=== PATIENT | female | born 1945 | race Caucasian/White ===

== ENCOUNTER 2023-01-24 14:12 | Emergency (ER) | payer MEDICARE, SELFPAY ==
[2023-01-24 14:14] VITALS: BP 117/66; PULSE 77; RESP 22; TEMP 36.2; O2SAT 97; BMI 42.7
--- NOTE | 2023-01-24 14:24 | ED.WOUNDLAC1 ---
Documented by User: CASSIE Gallegos 01/24/23 14:28 HPI - Wound/Laceration General Chief Complaint: Wound/Laceration Stated Complaint: WOUND Time Seen by Provider: 01/24/23 14:24 Source: patient and family Mode of arrival: ambulance Limitations: language barrier and altered mental status History of Present Illness HPI narrative: 77-year-old female presents by squad for a skin tear to her left hand during a bath today. Family is here with her. They applied Neosporin. Denies swelling, temp or sensation changes Related Data Allergies Allergy/AdvReac Type Severity Reaction Status Date / Time No Known Drug Allergies Allergy Verified 01/24/23 14:29 Review of Systems ROS Status of ROS 10 or more systems reviewed and unremarkable except as noted in history and below PFSH PFS Social History Smoking status: Former smoker Exam Narrative Exam Narrative: General: A&Ox3, no distress, talking in full an complete sentences skin: warm, dry, intact, 3 cm skin tear to the left hand without complication head: normocephalic, atraumatic eyes: EOMI nose: nares patent neck: supple, trachea midline respiratory: non-labored extremities: FROM x 4, strength +5/5 neuro: A&Ox3 psych: appropriate mood and affect, cooperative Constitutional Vital Signs, click to edit/add: Last Vital Signs Temp 97.2 F L 01/24/23 14:14 Pulse 80 01/24/23 15:40 Resp 18 01/24/23 15:40 BP 126/78 01/24/23 15:40 Pulse Ox 96 01/24/23 15:40 O2 Del Method Room Air 01/24/23 14:14 Course Vital Signs Vital signs: Vital Signs Temperature 97.2 F L 01/24/23 14:14 Pulse Rate 77 01/24/23 14:14 Respiratory Rate 22 01/24/23 14:14 Blood Pressure 117/66 01/24/23 14:14 Pulse Oximetry 97 01/24/23 14:14 Oxygen Delivery Method Room Air 01/24/23 14:14 Temperature 97.2 F L 01/24/23 14:14 Pulse Rate 80 01/24/23 15:40 Respiratory Rate 18 01/24/23 15:40 Blood Pressure 126/78 01/24/23 15:40 Pulse Oximetry 96 01/24/23 15:40 Oxygen Delivery Method Room Air 01/24/23 14:14 MDM - Wound/Laceration MDM Narrative Medical decision making narrative: No sutures required and will heal by secondary intention. Bacitracin applied and discussed wound care. F/u with PCP. afebrile, not tachypneic, not tachycardic, tolerating p.o., not hypoxic, non toxic appearing and ambulating at baseline and hemodynamically stable to be d/c. answered all questions. pt in agreement with tx. educated when to return to ER. Discharge Plan Discharge Chief Complaint: Wound/Laceration Clinical Impression: Skin tear of left hand without complication Qualifiers: Encounter type: initial encounter Qualified Code(s): S61.412A - Laceration without foreign body of left hand, initial encounter Patient Disposition: Home, Self-Care Time of Disposition Decision: 14:25 Condition: Good Mode of Transportation: EMS Instructions: Laceration Without Closure (ED) Additional Instructions: do not use neosporin, use bacitracin Stand Alone Forms: Portal Instructions Referrals: Physician,Non-Staff, [Primary Care Provider] - 1 week Discharge Date/Time: 01/24/23 16:18 Documented by User: Joao Turk MD 01/24/23 18:00 HPI - Wound/Laceration General Chief Complaint: Wound/Laceration Stated Complaint: WOUND Time Seen by Provider: 01/24/23 14:24 Related Data Allergies Allergy/AdvReac Type Severity Reaction Status Date / Time No Known Drug Allergies Allergy Verified 01/24/23 14:29 PFSH PFSH Social History Smoking status: Former smoker Exam Constitutional Vital Signs, click to edit/add: Last Vital Signs Temp 97.2 F L 01/24/23 14:14 Pulse 80 01/24/23 15:40 Resp 18 01/24/23 15:40 BP 126/78 01/24/23 15:40 Pulse Ox 96 01/24/23 15:40 O2 Del Method Room Air 01/24/23 14:14 Course Vital Signs Vital signs: Vital Signs Temperature 97.2 F L 01/24/23 14:14 Pulse Rate 77 01/24/23 14:14 Respiratory Rate 22 01/24/23 14:14 Blood Pressure 117/66 01/24/23 14:14 Pulse Oximetry 97 01/24/23 14:14 Oxygen Delivery Method Room Air 01/24/23 14:14 Temperature 97.2 F L 01/24/23 14:14 Pulse Rate 80 01/24/23 15:40 Respiratory Rate 18 01/24/23 15:40 Blood Pressure 126/78 01/24/23 15:40 Pulse Oximetry 96 01/24/23 15:40 Oxygen Delivery Method Room Air 01/24/23 14:14 MDM - Wound/Laceration MDM Narrative Medical decision making narrative: No sutures required and will heal by secondary intention. Bacitracin applied and discussed wound care. F/u with PCP. afebrile, not tachypneic, not tachycardic, tolerating p.o., not hypoxic, non toxic appearing and ambulating at baseline and hemodynamically stable to be d/c. answered all questions. pt in agreement with tx. educated when to return to ER. I, Dr Turk, have reviewed the above progress note and course of action in the ER; agree with the above. I have personally seen and evaluated this patient, gone over history and physical, and discussed disposition and treatment plan with the patient. Discharge Plan Discharge Chief Complaint: Wound/Laceration Clinical Impression: Skin tear of left hand without complication Qualifiers: Encounter type: initial encounter Qualified Code(s): S61.412A - Laceration without foreign body of left hand, initial encounter Patient Disposition: Home, Self-Care Time of Disposition Decision: 14:25 Condition: Good Mode of Transportation: EMS Instructions: Laceration Without Closure (ED) Additional Instructions: do not use neosporin, use bacitracin Stand Alone Forms: Portal Instructions Referrals: Physician,Non-Staff, MD [Primary Care Provider] - 1 week Discharge Date/Time: 01/24/23 16:18
[2023-01-24] MEDS: BACITRACIN 0.9 GM PACKET 1 PACKET TOPICAL (14:36)
[2023-01-24 15:40] VITALS: BP 126/78; PULSE 80; RESP 18; O2SAT 96
== END 2023-01-24 16:18 | disposition home or self-care (01) ==
PROVIDERS: Emergency Provider Emergency Medicine
DX: S61.412A Laceration without foreign body of left hand, initial encounter (principal); Z87.891 Personal history of nicotine dependence; W45.8XXA Other foreign body or object entering through skin, initial encounter
CPT/HCPCS: 99282

== ENCOUNTER 2023-11-09 13:08 | Outpatient (OUT) | payer MEDICARE, SELFPAY ==
--- NOTE | 2023-11-09 13:09 | XR_ITS ---
The [address] [address] Patient Name: DAISY GARCIA MRN: [id number] date: 1945 Sex: F Assigned Patient Location: [facility] Current Patient Location: Accession/Order Number: [id number] Exam Date: 11/09/2023 13:15 Report Date: 11/10/2023 07:36 At the request of: LEONCIO MATHIAS Procedure: XR chest 2V EXAMINATION: XR chest 2V HISTORY: Dyspnea R06.00 COMPARISON: No relevant comparison available. TECHNIQUE: PA and lateral FINDINGS: LUNGS: No significant pulmonary parenchymal abnormalities. VASCULATURE: No increased pulmonary vasculature. PLEURA: No pneumothorax, effusion, or pleural thickening. CARDIAC: No cardiomegaly or cardiac silhouette abnormality. MEDIASTINUM: No visible mass or adenopathy. Median sternotomy wires BONES: Mild degenerative disc disease and spondylosis without visible acute abnormalities. OTHER: Negative. XR/XR chest 2V IMPRESSION: No acute cardiopulmonary process Electronically authenticated by: ANA BONDS Date: 11/10/2023 07:36
--- NOTE | 2023-11-09 14:00 | CA_ITS ---
Patient Name: DAISY GARCIA MR#: [id number] : 1945 Exam Date: 11/09/2023 Ordering Doctor: LEONCIO MATHIAS ECHOCARDIOGRAM REPORT PROCEDURE: CA ECHO DOPPLER COMPLETE INDICATIONS: Dyspnea, CABG COMPARISON: None. DESCRIPTION: COMPLETE ECHOCARDIOGRAM Real-time transthoracic echocardiography with 2D, M-mode, spectral and color flow Doppler performed. QUALITY: Technically difficult due to patients condition, study was performed with patient in wheelchair. LEFT VENTRICLE: Normal chamber size. Mild concentric left ventricular hypertrophy. Normal systolic function. LV EF: Normal left ventricular ejection fraction, (60-65%). DIASTOLIC: ATRIAL SEPTUM: LEFT ATRIUM: Normal chamber size. RIGHT ATRIUM: Normal chamber size. RIGHT VENTRICLE: Normal chamber size. Normal systolic function. TRICUSPID VALVE: Not well visualized. no regurgitation. MITRAL VALVE: Normal mobility and thickness. There is no mitral annular calcification. Trivial mitral regurgitation. AORTIC VALVE: Normal trileaflet appearance. No visible sclerosis. Normal leaflet mobility. No evidence of aortic valve stenosis. No aortic regurgitation. AORTIC ROOT: Normal diameter and appearance. PULMONIC VALVE: Not well visualized. PERICARDIUM: No evidence of pericardial effusion. IVC: Not well visualized. PLEURA: CONCLUSION: 1. Mild concentric left ventricular hypertrophy with normal systolic function. LVEF is estimated at 60 to 65%. 2. Normal right ventricular size and systolic function. 3. No apparent significant valvular dysfunction. 4. Technically limited study with due to patient's condition and poor sound transmission. Adult Echocardiography Procedure Report Left Ventricle LVEDD (3.7 - 5.6 cm): 3.89 cm LVESD (2.2 - 4.0 cm): 2.48 cm LVIVS thickness (0.6 - 1.2 cm): 1.14 cm LVPW thickness (0.5 - 1.0 cm): 1.25 cm e': 0.07 m/s E - e': 8.54 LVOT Max Gradient: 4.63 mm[Hg] LVOT Area (cm2): 1.08 m/s Peak Velocity (LVOT): 1.08 m/s Mean Velocity (LVOT): 0.69 m/s LVOT Diameter 2.42 cm Left Atrium LA Volume Index (2D A2C): 24.35 ml/m2 Left Atrium Systolic Dimension: 5.24 cm Mitral Valve MV E to A Ratio: 0.76 Mitral Valve A-Wave Peak Velocity: 0.75 m/s Mitral Valve E-Wave Peak Velocity: 0.57 m/s Right Ventricle Aorta AO Root Diam: 3.29 cm Aortic Valve AoV Area (Peak Alex): 4.08 cm2, 4.08 cm2 AoV Area (VTI): 3.66 cm2, 3.66 cm2 Peak Velocity(Antegrade Flow): 1.22 m/s Peak Gradient(Antegrade Flow): 5.91 mm[Hg] Mean Velocity(Antegrade Flow): 0.86 m/s Mean Gradient(Antegrade Flow): 3.29 mm[Hg] Velocity Time Integral: 27.98 cm Tricuspid Valve Pulmonic Valve Peak Velocity: 0.62 m/s Peak Gradient: 1.56 mm[Hg] Right Atrium Dictated by: Nitesh Penn M.D. on 11/09/2023 at 16:41 Approved by: Nitesh Penn M.D. on 11/09/2023 at 16:44
== END 2023-11-09 13:09 | disposition home or self-care (01) ==
LOC: RAD 13:08
PROVIDERS: Visit Provider Nurse Practitioner Family
DX: R06.00 Dyspnea, unspecified (principal)
CPT/HCPCS: 71046; 93306

== ENCOUNTER 2025-01-15 19:43 | Emergency (ER) | payer MEDICARE, SELFPAY ==
--- OUTSIDE RECORDS SUMMARY | 2022-07-21 06:10 | XMS_ITS | Continuity of Care Document ---
Author Organization [facility] Address [address] [place] [address] Phone Care Team Providers Care Yarn Dumper Name Role Phone Mehul Ruiz MD Unavailable Unavailable Allergies, Adverse Reactions, Alerts Substance Reaction Status Criticality sirolimus Swelling(moderate) Active No Inform ation PENICILLIN RashRash Active No Information Sulfa (Sulfonamide Antibiotics) RashRash Active No Information Medications Medication Instructions Dosage Effective Dates (start - stop) Status Comments aspirin 81 mg tablet,delayed release take 1 tablet by oral route every day 81 MG - Active Keppra 500 mg tablet take 1 tablet by oral route 2 times every day 500 MG - Active nifedipine ER 30 mg tablet,extended release take 1 tablet by oral route every 2 days 30 MG - Active trazodone 50 mg tablet take 2 tablet by oral route every bedtime after meals total 100mg daily - Active Neoral 25 mg capsule take 3 capsule by oral route 2 times every day 75 MG - Active Gralise 300 mg tablet,extended release take 1 tablet by oral route 2 times daily - Active Requip 0.25 mg tablet take 1 tablet by oral route 3 times every day - Active montelukast 10 mg tablet take 1 tablet by oral route every day in the evening 10 MG - Active Myfortic 180 mg tablet,delayed release take 1 tablet by oral route every day 1 tablet - Active losartan 50 mg tablet take 2 tablet by oral route every day - Active Levemir FlexTouch U-100 Insulin 100 unit/mL (3 mL) subcutaneous pen inject by subcutaneous route per prescriber's instructions. Insulin dosing requires individualization. - Active alendronate 70 mg tablet take 1 tablet by oral route every week in the morning, at least 30 min before first food, beverage, or medication of day 70 MG - Active atorvastatin 10 mg tablet take 1 tablet by oral route every day 10 MG - Active duloxetine 30 mg capsule,delayed release take 1 capsule by oral route 2 times every day 30 MG - Active Flovent Diskus 50 mcg/actuation powder for inhalation inhale 1 puff by inhalation route 2 times every day - Active calcium citrate 315 mg calcium-vitamin D3 6.25 mcg (250 unit) tablet take 1 tablet by oral route 2 times every day 1 tablet - Active carvedilol 25 mg tablet take 1 tablet by oral route 2 times every day with food 25 MG - Active furosemide 40 mg tablet take 1 tablet by oral route every day 40 MG - Active hydralazine 50 mg tablet take 1 tablet by oral route 2 times every day with food 50 MG - No Longer Active magnesium 400 mg (as magnesium oxide) tablet take 1 tablet by oral route every day 1 tablet - No Longer Active clopidogrel 75 mg tablet take 1 tablet by oral route every day 75 MG - No Longer Active Centrum Silver 0.4 mg-300 mcg-250 mcg tablet take 1 milligram by oral route every day 1 milligram - No Longer Active Procedures Procedure Date Eye Exam Established Patient Comprehensi ve 1 Or More Visits Refraction OFFICE/OUTPATIENT VISIT, [facility] Advance Directives Directive Yes / No Effective Date File Name No Information Encounters Encounter Description Practice Location Reason(s) For Visit Diagnoses Date Provider Providers Copied on Encounter [facility] , [address] [place], [address], [place] tel:[phone] [facility] complete eye exam (chief complaint) Type 2 diabetes mellitus without complication, with long-term current use of insulinFuchs' corneal dystrophy of both eyesPresence of pseudophakia [address] [place], [place], [id number], [place]. tel:[phone] Referring Provider: No Ref Doc No Referring Doc. OFFICE/OUTPAT IENT VISIT, [facility] , [address] [place], [address], [place] tel:[phone] [facility] 1 year dilated exam (chief complaint) Presence of pseudophakiaFuc hs' corneal dystrophy of both eyesPresbyopia of both eyesDiabetes mellitus without complication [address], [place], [id number], [place]. tel:[phone] Referring Provider: No Ref Doc No Referring Doc. [facility] , [address] [place], [address], [place] tel:[phone] [place] No Information [address] [employer]. [address], [place], [id number], [place]. tel:[phone] Family History Family Member Type Diagnosis Age At Onset Problem No family history of Hyperte nsion Problem No family history of Retinal disease Problem No family history of Catarac ts Problem No family history of Corneal disease Problem No family history of Macular degeneration Problem No family history of Glaucom a Payers Payer name Insurance type Covered constitution party ID Authoriza tilenore(s) [employer] Medicare [id number] Social History Type Description Quantity Date Captured Comments Alcohol Use Details Unknown Caffeine Use Details Unknown Tobacco Use Status Current non-smoker Smoking Status Never smoker Non-Smoking Tobacco Use Details : No Details Available : No Details Available Sex Female Chief Complaint And Reason For Visit From encounter dated '07/21/2022 10:10'. complete eye exam (chief complaint). Description: The 76 year old female presents for evaluation ofcomplete eye exam in the right eye and left eye. Pt states that VA is stable OU. No burning, itching, redness, or tearing. No floaters, but pt sees occasional flashes of light. No problems with glare. No drops usedBP well managed with meds IDDM II BS: 173, 07/20/22A1c: 7.9%, 06/20/22 Reason For Referral Reason For Referral No Information History Of Present Illness Encounter Date Complaint History Of Prese nt Illness complete eye exam The 76 year ol d female presents for evaluation of complete eye exam in the right eye and left eye. Pt states that VA is stable OU. No burning, itching, redness, or tearing. No floaters, but pt sees occasional flashes of light. No problems with glare. No drops usedBP well managed with meds IDDM II BS: 173, 07/20/22A1c: 7.9%, 06/20/22 1 year dilated exam The 75 year old female presents 1 year dilated exam in the right and left eyes. DVA with out glasses is good. Pt doesn't dive at all.NVA with her OTC readers is good. Pt using +2.00.No pain or irration No flashes or floatersIDDM Type 2 A1C 7.4 BS was 155HTN stable with meds Functional Status Date Functional Assessmen t No Information Instructions Date Instruction Additional Infor kierra Impression/Plan Related to Type 2 diabetes mellitus without complication, with long-term current use of insulin Impression/Plan Related to Fuchs ' corneal dystrophy of both eyes Impression/Plan Related to Prese nce of pseudophakia Impression/Plan Related to Presb yopia of both eyes Impression/Plan Related to Diabe kamille mellitus without complication Impression/Plan Related to Prese nce of pseudophakia Impression/Plan Related to Fuchs ' corneal dystrophy of both eyes Assessments Type Assessment Date assessment Type 2 diabetes jacinta itus without complication, with long-term current use of insulin assessment Fuchs' corneal dystrophy of both eyes assessment Presence of pseudophakia 2022 impression Type 2 diabetes jacinta itus without complication, with long-term current use of insulin: E11.9 impression Fuchs' corneal dystrophy of both eyes: H18.513 impression Presence of pseudophakia: Z96.1 Patient Care Teams Name Effective Dates (start - stop) Status Members No Information
--- OUTSIDE RECORDS SUMMARY | 2024-09-05 14:39 | XMS_ITS ---
Author Name Auto Generated Organization [facility] Care Team Providers Care Spring Crater Name Role Phone JACKIE MISHRA Attending Unavailable LUKE DIXON Attending Unavailable PROBLEMS No Problem Records Found PROCEDURES No Procedure Records Found RESULTS No Result Records Found ALLERGIES No Allergies Records Found ENCOUNTERS ADMIT/DISCHARGE ACCOUNT NUMBER ADMITTING ENCOUNTER CLASS LOCATION SOURCE 09/05/2024/ 5 [id number] Ambulatory Building:R NEURO [facility] 02/27/2024/ 4 [id number] Ambulatory Building:[facility] NEURO [facility] PAYERS ENCOUNTER GUARANTOR PAYER SUBSCRIBER SOURCE 09/05/2024 DAISY Ann [place]HADOB: [place] [address]Ijt: () Primary Insurance:AETNA MEDICARE ADVANTAGEPolicy Number: [id number] Date:2023-04-18 DAISY Ann RADHADOB: [id number] [place] [address] [facility] 02/27/2024 DAISY Ann RADHADOB: [id number] [facility] [place] [address]Wkr: (HP) Primary Insurance:AET[employer] MEDICARE ADVANTAGEPolicy Number: [id number] Date:2023-04-18 DAISY Marissa GARCIADOB: [id number] [facility] [place] [address] [facility]
[2025-01-15] VITALS (26 sets, daily range): BP systolic 115–138; BP diastolic 51–89; PULSE 85–126; TEMP 37; O2SAT 91–96
--- OUTSIDE RECORDS SUMMARY | 2025-01-15 19:48 | XMS_ITS | Patient Health Record ---
Author Organization [facility] Address [address] [place] [address] Care Team Providers Care Distribution Estimator Name Role Phone Amparo Samano Primary Care Provider Unavailab JOHAN Lynch Unavailable [phone] Allergies No Known Allergies Reason For Referral No Information Medications Medication SIG (Take, Route, Frequency, Duration) Notes Start Date End Date Status Hyoscyamine Sulfate 0.125 MG 1 tablet on the tongue and allow to dissolve as needed Orally every 8 hrs; Duration: 30 days 01/11/2025 Active Cetirizine HCl 10 MG 1 tablet, as needed Orally Once a day; Duration: 30 day(s) Active Citalopram Hydrobromide 10 MG 1 tablet Orally Once a day; Duration: 30 day(s) Active Mucus Relief 400 MG 1 tablet as needed O rally every 12 hrs Active Memantine HCl 5 MG 2 tablets Orally twi ce a day Active Bacitracin-Polymyxin B - 1 application a s needed right eye every 4 hours; Duration: 10 day(s) 01/31/2024 Active Donepezil HCl 5 MG 1 tablet at bedtime Orally Once a day Active Lisinopril 10 MG 1 tablet Orally Once a day; Duration: 30 day(s) Active Rivaroxaban 20 MG 1 tablet with food O rally Once a day; Duration: 30 day(s) Active Social History Tobacco Use: Social History Observation Description Date Details (start date - stop date) Former Smoker NA - NA Tobacco Use/Smoking Question Answer Notes Are you a former smoker How long has it been since you last smoked? >20 years Tobacco use other than smoking: Question Answer Notes Are you an other tobacco user? No Problems Problem Type SNOMED Code ICD Code Onset Dates Problem Status W/U Status Risk Notes Problem Information temporarily unavailable Dyspnea, unspecified (R06.00) Active confirmed Problem Information temporarily unavailable Dysphagia, unspecified (R13.10) Active confirmed Problem Information temporarily unavailable History of falling (Z91.81) Active confirmed Problem Information temporarily unavailable HTN (hypertension) (I10) Active confirmed Problem Information temporarily unavailable Essential hypertension (I10) Active confirmed Problem Information temporarily unavailable Anxiety and depression (F41.8) Active confirmed Problem Information temporarily unavailable Alzheimer disease (G30.9) Active confirmed Problem Information temporarily unavailable Alzheimer's dementia without behavioral disturbance, unspecified timing of dementia onset (G30.9) Active confirmed Problem Information temporarily unavailable Conjunctivitis (H10.9) Active confirmed Problem Information temporarily unavailable History of DVT (deep vein thrombosis) (Z86.718) Active confirmed Problem Information temporarily unavailable Difficulty swallowing (R13.10) Active confirmed Problem Information temporarily unavailable History of tobacco abuse (Z87.891) Active confirmed Problem Information temporarily unavailable Increased oropharyngeal secretions (K11.7) Active confirmed Problem Information temporarily unavailable History of cervical cancer (Z85.41) Active confirmed Problem Information temporarily unavailable 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) Active confirmed Problem Information temporarily unavailable Personal history of COVID-19 (Z86.16) Active confirmed Problem Information temporarily unavailable Depression, unspecified depression type (F32.A) Active confirmed Problem Information temporarily unavailable Chronic kidney disease, stage 3 (N18.30) Active confirmed Vital Signs Heart Rate 63 /min 01/11/2025 Temperature 97.7 degrees Fahrenheit 01/11/2025 Respiratory Rate 20 /min 01/11/2025 Oximetry 93 % 01/11/2025 Blood pressure diastolic 66 mm Hg 01/11/2025 Height 5 ft 1 in in 01/11/2025 Blood pressure systolic 112 mm Hg 01/11/2025 Encounters Encounter Location Date Provider Diagnosis [address] [phone] 01/31/2024 JOHAN ANDERSON Alzheimer's dementia without behavioral disturbance, unspecified timing of dementia onset G30.9 ; Dysphagia, unspecified R13.10 ; Conjunctivitis H10.9 ; Encounter for palliative care Z51.5 and Pressure ulcer of buttock L89.[address] [address] 03/21/2024 JOHAN ANDERSON Alzheimer's dementia without behavioral disturbance, unspecified timing of dementia onset G30.9 ; Dysphagia, unspecified R13.10 ; Pressure ulcer of buttock L89.309 and Encounter for palliative care Z51.5 [facility] [address] [place], [place] [phone] 05/21/2024 JOHAN ANDERSON Alzheimer's dementia without behavioral disturbance, unspecified timing of dementia onset G30.9 ; Dysphagia, unspecified R13.10 ; Pressure ulcer of buttock L89.309 and Encounter for palliative care Z51.5 [facility] [address] [place], [place] [phone] 07/18/2024 JOHAN ANDERSON Alzheimer's dementia without behavioral disturbance, unspecified timing of dementia onset G30.9 ; Dysphagia, unspecified R13.10 ; Pressure ulcer of buttock L89.309 and Encounter for palliative care Z51.5 [facility] [address] [place], [place] [phone] 09/17/2024 JOHAN ANDERSON Alzheimer's dementia without behavioral disturbance, unspecified timing of dementia onset G30.9 ; Dysphagia, unspecified R13.10 and Encounter for palliative care Z51.5 [facility] [address] [place] [phone] 11/19/2024 JOHAN ANDERSON Alzheimer's dementia without behavioral disturbance, unspecified timing of dementia onset G30.9 ; Dysphagia, unspecified R13.10 and Encounter for palliative care Z51.5 [facility] [address] [place] [phone] 01/11/2025 JOHAN ANDERSON Alzheimer's dementia without behavioral disturbance, unspecified timing of dementia onset G30.9 ; Dysphagia, unspecified R13.10 ; Excessive cerumen in both ear canals H61.23 and Encounter for palliative care Z51.5 [facility] [address] [place] [phone] 07/02/2024 JOHAN JUSTIN [facility] [address] [place] [phone] 09/25/2024 JOHAN JUSTIN [facility] [address] [place] [phone] 09/25/2024 JOHAN JUSTIN [facility] [address] [place] [phone] 11/20/2024 JOHAN JUSTIN [facility] [address] [place] [phone] 12/11/2024 JOHAN ANDERSON Dysphagia, unspecifi ed R13.10 [facility] [address] [place] [address] 01/09/2025 JOHAN ANDERSON [facility] [address] [place] [address] 01/10/2025 JOHAN ANDERSON Assessments Encounter Date Diagnosis (ICD Code) Assessment Notes Treatment Notes Treatment Clinical Notes Section Notes 01/31/2024 Alzheimer's dementia without behavioral disturbance, unspecified timing of dementia onset (ICD-10 - G30.9) Patient diagnosed with Alzheimer's approximately 5 years ago. She does continue to follow with [facility]. Neurologist did tell he could stop giving medication for Alzheimer's but he states it doesn't cost much and wishes to continue. Patient is dependent on family for all ADLs. Needs to be fed. She is nonverbal. Does make eye contact for short time. Smiles occasionally. Non-ambulatory. Uses ceiling lift for transfers. Incontinent of bowel/bladder. 3 areas to buttocks, now closed. History of dysphagia; occasional coughing with meals, mostly with fluids. Occasional holding of food in mouth, family gives reminders to chew and swallow. Next Neurology appointment February 26. Continue current regimen 03/21/2024 Alzheimer's dementia without behavioral disturbance, unspecified timing of dementia onset (ICD-10 - G30.9) Patient diagnosed with Alzheimer's approximately 5 years ago. She does continue to follow with [facility]. Neurologist did tell he could stop giving medication for Alzheimer's but he states it doesn't cost much and wishes to continue. Patient is dependent on family for all ADLs. Needs to be fed. She is nonverbal. Does make eye contact for short time. Smiles occasionally. Non-ambulatory. Requiring [place] lift for transfers (has ceiling lift in home). Incontinent of bowel/bladder. Several small open areas to buttocks. History of dysphagia; occasional coughing with meals, mostly with fluids. Occasional holding of food in mouth, family gives reminders to chew and swallow. Continue current regimen 05/21/2024 Alzheimer's dementia without behavioral disturbance, unspecified timing of dementia onset (ICD-10 - G30.9) Patient diagnosed with Alzheimer's approximately 5 years ago. She does continue to follow with [facility]. Neurologist did tell he could stop giving medication for Alzheimer's but he states it doesn't cost much and wishes to continue. Patient is dependent on family for all ADLs. Needs to be fed. She is nonverbal. Does make eye contact for short time. Smiles occasionally. Non-ambulatory. Requiring [place] lift for transfers (has ceiling lift in home). Incontinent of bladder (100%) and occasionally bowels (25%). No further open areas. History of dysphagia; occasional coughing with meals, mostly with fluids. Occasional holding of food in mouth, family gives reminders to chew and swallow. Using thickener for fluids Continue current regimen 07/18/2024 Dysphagia, unspecified (ICD-10 - R13.10) Patient has history of dysphagia. Was coughing mostly after liquids; now coughing with food and fluid. Family has been using thickener and spoon feeding liquids. Congestion to throat/upper chest. Lungs clear. Continue with Scopolamine patches Continue to thicken liquids; discussed risk for aspiration. Discussed using more thickener to achieve honey-consistency Lung sounds clear this visit. O2 saturation 96% on room air. Patient to sit up when eating/drinking. 07/18/2024 Alzheimer's dementia without behavioral disturbance, unspecified timing of dementia onset (ICD-10 - G30.9) Patient diagnosed with Alzheimer's approximately 6 years ago. She does continue to follow with [facility]. Recently (06/28/24) increased Namenda from 5mg twice a day to 10mg twice a day. reports that the patient has been more alert. Patient is alert, nonverbal. Will make eye contact for a few seconds and smiles occasionally. Patient is dependent on family for 6/6 ADLs. Appetite good. Eats 2 meals a day; approximately 3-4 cups of food/day. Does need to be fed. Taking 1-2 hours for meals. Liquids thickened. Patient does cough with eating/drinking. Has history of dysphagia. Encouraged family to use more thickener to try and decrease risk for aspiration. Patient is non-ambulatory. 4 months ago was able to assist with standing and is no longer standing. Family uses ceiling lift for transfers. She is able to sit upright in her wheelchair. Patient is incontinent of bowel and bladder. The family does have a toileting regimen and patient will void and have bowel movement when sitting on BSC. Wears briefs. Several small (< 0.5cm) open areas to bilateral buttocks. Currently using Desitin cream. Discussed restarting the patches since the areas have re-opened. Making sure to turn/reposition when in bed. Frequent incontinence care. agreeable to plan. No recent infections. No recent weight checked. MAC 37cm (left arm). MAC was 38cm on 11/24/2023 Continue current regimen 09/17/2024 Dysphagia, unspecified (ICD-10 - R13.10) Patient has history of dysphagia. Was coughing mostly after liquids; now coughing with food and fluid. Family has been using thickener and spoon feeding liquids. Congestion to throat/upper chest. Lungs clear. Continue with Scopolamine patches Continue to thicken liquids; discussed risk for aspiration. Discussed using more thickener to achieve honey-consistency Education provided on dysphagia, aspiration, and the risk for pneumonia. Lung sounds clear this visit. O2 saturation 96% on room air. Patient to sit up when eating/drinking. 09/17/2024 Alzheimer's dementia without behavioral disturbance, unspecified timing of dementia onset (ICD-10 - G30.9) Patient diagnosed with Alzheimer's approximately 7 years ago. She does continue to follow with [facility]. Had appointment on 09/05/24; records requested. Patient is alert, nonverbal. Will make eye contact for a few seconds and smiles occasionally. Patient is dependent on family for 6/6 ADLs. Appetite good. Eats 2 meals a day; approximately 2-3 cups of food/day. Does need to be fed. Taking 1-2 hours for meals. Needs cues for chewing/swallowin g. Liquids thickened (still liquid consistency). Patient does cough with eating/drinking. Has history of dysphagia. Encouraged family to use more thickener to try and decrease risk for aspiration. Patient is non-ambulatory. In March, was able to assist with standing and is no longer standing. Family uses ceiling lift for transfers. She is able to sit upright in her wheelchair. Patient is incontinent of bowel and bladder. The family does have a toileting regimen and patient will void and have bowel movement when sitting on BSC. Wears briefs. Small (< 0.5cm) open area to crease of buttocks. Currently using Desitin cream. Making sure to turn/reposition when in bed. Frequent incontinence care. agreeable to plan. No recent infections. No recent hospitalizations No recent weight checked. MAC was 38cm on 11/24/2023, 37cm in July, current MAC 34cm (left arm) Continue current regimen 11/19/2024 Dysphagia, unspecified (ICD-10 - R13.10) Patient has history of dysphagia. Was coughing mostly after liquids; now coughing with food and fluid. Family has been using thickener and spoon feeding liquids. Congestion to throat/upper chest. Lungs clear. Continue with Scopolamine patches Continue to thicken liquids; discussed risk for aspiration. Discussed using more thickener to achieve honey-consistency Education provided on dysphagia, aspiration, and the risk for pneumonia. Lung sounds clear this visit. O2 saturation 100% on room air. Patient to sit up when eating/drinking and stay upright for 30 minutes after eating. 11/19/2024 Alzheimer's dementia without behavioral disturbance, unspecified timing of dementia onset (ICD-10 - G30.9) Patient diagnosed with Alzheimer's approximately 7 years ago. She does continue to follow with [facility]. Last appointment on 09/05/24 Patient is alert, nonverbal. Will make eye contact for a few seconds and smiles occasionally. Patient is dependent on family for 6/6 ADLs. Appetite good. Eats 2 meals a day; approximately 2-3 cups of food/day. Does need to be fed. Taking 1-2 hours for meals. Needs cues for chewing/swallowin g. Sometimes food/liquid just pours from her mouth. Liquids thickened (still liquid consistency). Patient does cough with eating/drinking. Has history of dysphagia. -Encouraged family to use more thickener (honey consistency) -Patient to sit upright during meals and for at least 30 minutes after eating -Soft food, small bites -Family declines speech therapy referral Sleeping more throughout the day; awake more at night -Suggested trying Melatonin at bedtime Patient is non-ambulatory. In March, was able to assist with standing and is no longer standing. Family uses ceiling lift for transfers. 2 months ago, the patient was able to sit upright in her wheelchair. Now leaning to the right and needs propped. Patient is incontinent of bowel and bladder. The family does have a toileting regimen and patient will void and have bowel movement when sitting on BSC. Wears briefs. Several small (< 0.5cm) open areas to bilateral buttocks. Currently using Desitin cream. does have hydrocolloid dressings but states he has trouble getting them to stick. -Make sure area is clean and dry before applying patches -Making sure to turn/reposition when in bed. -Frequent incontinence care. - agreeable to plan. No recent infections. No recent hospitalizations No recent weight checked. MAC was 38cm on 11/24/2023, 37cm in July, current MAC 34cm (left arm); no change from last visit. 12/11/2024 Dysphagia, unspecified (ICD-10 - R13.10) 01/11/2025 Dysphagia, unspecified (ICD-10 - R13.10) Patient has history of dysphagia. Coughing with food and fluid. Family has been using thickener and spoon feeding liquids. Congestion to throat/upper chest. Lungs clear. Patient having breakdown behind ears. Will stop Scopolamine patches. Discussed other options with the patient's . Will start SL Levsin Continue to thicken liquids; discussed risk for aspiration. Discussed using more thickener to achieve honey-consistency Education provided on dysphagia, aspiration, and the risk for pneumonia. Lung sounds clear this visit. O2 saturation 93% on room air. Patient to sit up when eating/drinking and stay upright for 30 minutes after eating. 01/11/2025 Alzheimer's dementia without behavioral disturbance, unspecified timing of dementia onset (ICD-10 - G30.9) Patient diagnosed with Alzheimer's approximately 7 years ago. She does continue to follow with [facility]. Last appointment on 09/05/24 Patient is alert, nonverbal. Will make eye contact for a few seconds and smiles occasionally ( reports she is smiling less). Patient is dependent on family for 6/6 ADLs. Appetite decreased. Eats 2 meals a day; approximately 2-3 cups of food/day. Does need to be fed. Taking approximately 2 hours for meals. Needs cues for chewing/swallowin g. Sometimes food/liquid just pours from her mouth. Liquids thickened (still liquid consistency). Patient does cough with eating/drinking. Has history of dysphagia. -Again encouraged family to use more thickener (honey consistency) -Patient to sit upright during meals and for at least 30 minutes after eating -Soft food, small bites -Family declines speech therapy referral Sleeping more throughout the day; awake more at night -Suggested trying Melatonin at bedtime Patient is non-ambulatory. In March, was able to assist with standing and is no longer standing. Family uses ceiling lift for transfers. In September, the patient was able to sit upright in her wheelchair. Now leaning to the right and needs propped. Patient is incontinent of bladder and sometimes bowels. The family does have a toileting regimen and patient will void and have bowel movement when sitting on BSC. Wears briefs. Several small (< 0.5cm) open areas to bilateral buttocks. Currently using hydrocolloid dressings but sometimes has trouble getting them to stick. -Make sure area is clean and dry before applying patches -Making sure to turn/reposition when in bed. -Frequent incontinence care. - agreeable to plan. No recent infections. No recent hospitalizations No recent weight checked. MAC was 38cm on 11/24/2023, 37cm in July, current MAC 34cm (left arm); no change from last visit. 01/11/2025 Excessive cerumen in both ear canals (ICD-10 - H61.23) voiced that there was increased wax build up to patient's left ear. Examined both ears with otoscope. Unable to visualize TMs. Used lighted curette to remove moderate amount of soft cerumen from both ear canals. The patient tolerated well. Once cerumen removed, able to visualize TMs. No signs of infection noted. 11/19/2024 Encounter for palliative care (ICD-10 - Z51.5) Patient is alert but confused. Nonverbal. Patient's makes medical decisions for her. Discussed disease progression, quality of life, symptom management, and goals of care with the patient's and daughter. Patient lives at home with her , daughter, and son who all act as caregivers. She appears well cared for at home. The family plans to keep her in the home and kept comfortable. GOC: respiratory management, comfort measures. POA and DNRCC documents in the chart. No changes to ACP this visit. Emergency Contacts: , Junior Daugherty is POA, . Patient's son, Rob Daughetry, . PPS 30%. Prognosis: < 6 months. FAST score 7e. Decline noted with increased coughing with meals, needing cues with meals, open areas to buttocks, FAST score 7d to 7e, needing propped while sitting. Patient is Hospice appropriate at this time. Hospice discussion held with the patient's and daughter. He states he does not feel that she is ready. He is currently not in a Hospice mindset. Will continue to hold discussions about Hospice and the benefits involved. Next visit scheduled for two months, per family request. Will make touch point calls in between visits to monitor patient's condition. The family agrees to call if anything changes. Total time spent 85 minutes reviewing patient's medical history, medications, allergies, face to face visit, physical exam, and documentation of visit. 09/17/2024 Encounter for palliative care (ICD-10 - Z51.5) Patient is alert but confused. Nonverbal. Patient's makes medical decisions for her. Discussed disease progression, quality of life, symptom management, and goals of care with the patient's and daughter. Patient lives at home with her , daughter, and son who all act as caregivers. She appears well cared for at home. The family plans to keep her in the home and kept comfortable. GOC: respiratory management, comfort measures. POA and DNRCC documents in the chart. No changes to ACP this visit. Emergency Contacts: , Junior Daugherty is POA, . Patient's son, Rob Daugherty, . PPS 30%. Prognosis: < 6 months. FAST score 7d. Decline noted with increased coughing with meals, needing cues with meals, open area to buttocks. Patient is Hospice appropriate at this time. Hospice discussion held with the patient's and daughter. He states he does not feel that she is ready. He is currently not in a Hospice mindset. Will continue to hold discussions about Hospice and the benefits involved. Next visit scheduled for two months, per family request. Will make touch point calls in between visits to monitor patient's condition. Total time spent 85 minutes reviewing patient's medical history, medications, allergies, face to face visit, physical exam, and documentation of visit. 07/18/2024 Pressure ulcer of buttock (ICD-10 - L89.309) At the last visit, the previously open areas to buttocks had healed. Now has several open areas to bilateral buttocks. Patient is chair bound and incontinent of bowel/bladder. Discussed repositioning often to decrease pressure Continue with alternating pressure air mattress Frequent incontinent care Restart with hydrocolloid patches 05/21/2024 Dysphagia, unspecified (ICD-10 - R13.10) Patient has history of dysphagia. Coughing mostly after liquids. Family has been using thickener and spoon feeding liquids. Congestion to throat/upper chest. Lungs clear. Continue with Scopolamine patches Continue to thicken liquids Lung sounds clear this visit. O2 saturation 95% on room air. Patient to sit up when given fluids. 03/21/2024 Dysphagia, unspecified (ICD-10 - R13.10) Patient has history of dysphagia. Coughing mostly after liquids. Family has been using thickener and spoon feeding liquids. Congestion to throat/upper chest. Lungs clear. Afebrile. Continue with Scopolamine patches Discussed making thicker consistency to see if patient could tolerate better. Lung sounds clear this visit. O2 saturation 95% on room air. Patient to sit up when given fluids. 01/31/2024 Dysphagia, unspecified (ICD-10 - R13.10) Patient has history of dysphagia. Coughing mostly after liquids. Family has been using thickener and spoon feeding liquids. Observed patient coughing this visit. Drink does not appear very thickened. Discussed making thicker consistency to see if patient could tolerate better. Lung sounds clear this visit. O2 saturation 95% on room air. Patient to sit up when given fluids. 01/31/2024 Conjunctivitis (ICD-10 - H10.9) Right eye with redness and drainage X 3 days. Start patient on Bacitracin-Polymy nikko B ointment Order called into [place], [place] Warm compresses to help with crusting. Family to call if eye worsens or not improved after treatment 03/21/2024 Pressure ulcer of buttock (ICD-10 - L89.309) Patient with several small open areas to bilateral buttocks, all less than 0.5cm. states he had stopped using the patches because they were closed, but recently started using them again and states they have gotten smaller. Currently has Desitin cream applied. states he will apply patch after she is cleaned up for the day. Reviewed directions for patches and to leave them on (unless soiled) for at least 3 days or come off on own. Patient is chair bound and incontinent of bowel/bladder. Discussed repositioning often to decrease pressure; family did purchase new air mattress that alternates pressure/reductio n Frequent incontinent care Continue with hydrocolloid patches to open areas 05/21/2024 Pressure ulcer of buttock (ICD-10 - L89.309) The open areas to patient's buttocks are now closed. continues to use Desitin cream for protection. Patient is chair bound and incontinent of bowel/bladder. Discussed repositioning often to decrease pressure Continue with alternating pressure air mattress Frequent incontinent care Continue with hydrocolloid patches if opens back up 07/18/2024 Encounter for palliative care (ICD-10 - Z51.5) Patient is alert but confused. Nonverbal. Patient's makes medical decisions for her. Discussed disease progression, quality of life, symptom management, and goals of care with the patient's , son, and daughter. Patient lives at home with her , daughter, and son who all act as caregivers. She appears well cared for at home. The family plans to keep her in the home and kept comfortable. GOC: respiratory management, comfort measures. POA and DNRCC documents in the chart. No changes to ACP this visit. Emergency Contacts: , Junior Daugherty is POA, . Patient's son, Rob Daugherty, . PPS 30%. Prognosis: > 6 months. FAST score 7d. Decline noted with increased coughing with meals, decreased ability to stand, reoccurring open areas to buttocks. Patient is not Hospice appropriate at this time. Hospice discussion held with the patient's and children. He states he does not feel that she is ready. He is currently not in a Hospice mindset. Will continue to hold discussions about Hospice and the benefits involved. Next visit scheduled for two months, per family request. Will make touch point calls in between visits to monitor patient's condition. Total time spent 85 minutes reviewing patient's medical history, medications, allergies, face to face visit, physical exam, and documentation of visit. 01/11/2025 Encounter for palliative care (ICD-10 - Z51.5) Patient is alert but confused. Nonverbal. Patient's makes medical decisions for her. Discussed disease progression, quality of life, symptom management, and goals of care with the patient's and daughter. Patient lives at home with her , daughter, and son who all act as caregivers. She appears well cared for at home. The family plans to keep her in the home and kept comfortable. GOC: respiratory management, comfort measures. POA and DNRCC documents in the chart. No changes to ACP this visit. Emergency Contacts: Junior Daugherty is POA, . Patient's son, Rob Daugherty, . PPS 30%. Prognosis: < 6 months. FAST score 7e. Decline noted with increased coughing with meals, length of time needed for meals, continued open areas to buttocks, FAST score 7d to 7e, needing propped while sitting. Patient is Hospice appropriate at this time. Hospice discussion held with the patient's and daughter. He states he does not feel that she is ready. He is currently not in a Hospice mindset. Will continue to hold discussions about Hospice and the benefits involved. Next visit scheduled for two months, per family request. Will make touch point calls in between visits to monitor patient's condition. The family agrees to call if anything changes. Total time spent 95 minutes reviewing patient's medical history, medications, allergies, face to face visit, physical exam, and documentation of visit. 05/21/2024 Encounter for palliative care (ICD-10 - Z51.5) Patient is alert but confused. Nonverbal. Patient's makes medical decisions for her. Discussed disease progression, quality of life, and goals of care with the patient's and daughter. Patient lives at home with her , daughter, and son who all act as caregivers. She appears well cared for at home. The family plans to keep her in the home and kept comfortable. POA and DNRCC documents in the chart. Emergency Contacts: Junior Daugherty is POA, . Patient's son, Rob Daugherty, . PPS 30%. Prognosis: > 6 months (possibly less). FAST score 7d. Patient is most likely hospice appropriate but patient's does not want hospice services at this time. He says that if she starts to decline more, he will consider it. requests current palliative visits every 2 months due to the cost. He agrees to phone calls to monitor the patient's condition. Decline noted with increased sleeping, coughing with meals/fluids. Next visit scheduled for two months, per family request. Total time spent 85 minutes reviewing patient's medical history, medications, allergies, face to face visit, physical exam, and documentation of visit. 03/21/2024 Encounter for palliative care (ICD-10 - Z51.5) Patient is alert but confused. Nonverbal. , Junior Daugherty is POA and emergency contact, . Patient lives at home with her , daughter, and son who all act as caregivers. Patient's son, Rob Daugherty is second emergency contact, . Discussed quality of life and plan of care with family. Patient appears well cared for at home. They plan to keep her in the home and kept comfortable. PPS 30%. FAST score 7d. Patient is most likely hospice appropriate but patient's does not want hospice services at this time. [facility] is currently providing PT for the patient and also discussed Hospice with the . He states he will discuss it further with his family and if he has any questions, he would call. States that he would like current palliative visits every 2 months due to the cost. Decline noted with inability to stand. Next visit scheduled for two months, per family request. Total time spent 85 minutes reviewing patient's medical history, medications, allergies, face to face visit, physical exam, and documentation of visit. 01/31/2024 Encounter for palliative care (ICD-10 - Z51.5) Patient is alert but confused. Nonverbal. , Junior Daugherty is POA and emergency contact, . Patient lives at home with her , daughter, and son who all act as caregivers. Patient's son, Rob Daugherty is second emergency contact, . Discussed quality of life and plan of care with family. Patient appears well cared for at home. They plan to keep her in the home and kept comfortable. PPS 30%. FAST score 7c. Patient is potentially hospice appropriate but patient's does not want hospice services at this time and does not believe that patient is at the end of her life. Educated family on disease progression and they state understanding. Next visit scheduled for one month, per family request. Total time spent 85 minutes reviewing patient's medical history, medications, allergies, face to face visit, physical exam, and documentation of visit. 01/31/2024 Pressure ulcer of buttock (ICD-10 - L89.309) Patient had 2 open areas to left buttock and 1 open area to right buttock. Started hydrocolloid dressing at last visit. Areas are now closed. Continues redness. Patient is chair bound and incontinent of bowel/bladder. Discussed repositioning often to decrease pressure; family did purchase new air mattress that alternates pressure/reductio n Frequent incontinent care Continue with Desitin to red areas If areas re-open, start using patches again 01/31/2024 Other 03/21/2024 Other 01/11/2025 Other Plan Of Treatment Next Appt Details Provider Name:JOHAN ANDERSON, 12:00:00 PM, [address] [place], [address], Insurance Providers Payer Name Payer Address Payer Phone Subscriber Number Group Number Insured Name Patient Relationship to Insured Coverage Start Date Coverage End Date [employer]vantage PPO [address] [place] [address] [id number] Mare Daugherty Self - patient is the insured Medical (General) History Medical History History ICD Code Alzheimer's dementia without behavioral disturbance, unspecified timing of dementia onset G30.9 Dysphagia, unspecified R13.10 Dyspnea, unspecified R06.00 Chronic kidney disease, stage 3 N18.30 Essential hypertension I10 Depression, unspecified depression type F32.A Anxiety and depression F41.8 History of tobacco abuse Z87.891 History of cervical cancer Z85.41 History of DVT (deep vein thrombosis) Z8 6.718 Personal history of COVID-19 Z86.16 History of falling Z91.81 Surgical History Surgery Date(Month/Year) Cervical Cancer/hysterectomy 2004 Thyroidectomy Neck surgery 2016 Hospitalization History Reason Date(Month/Year) Covid (@ [facility]) 10/2021
--- OUTSIDE RECORDS SUMMARY | 2025-01-15 19:48 | XMS_ITS | Clinical Summary ---
Author Organization [facility] Address [address], [address] [place] [address] Care Team Providers Care Cistern Room Operator Name Role Phone Jhonatan Panchal DO Primary Care Provider [phone] Allergies No known active allergies Medications nabumetone (RELAFEN) 500 MG tablet Take 500 mg by mouth 2 times daily 0 03/24/2018 Active oxybutynin (DITROPAN-XL) 10 MG extended release tablet Take 10 mg by mouth daily 5 05/27/2018 Active carvedilol (COREG) 6.25 MG tablet Take 1 tablet by mouth 2 times daily (with meals) 60 tablet 3 06/28/2018 Active lisinopril (PRINIVIL;ZESTRI L) 5 MG tablet Take 1 tablet by mouth daily 30 tablet 3 07/14/2018 Active famotidine (PEPCID) 20 MG tablet Take 1 tablet by mouth daily 60 tablet 3 07/14/2018 Active Active Problems Problem Noted Date Diagnosed Date Morbid obesity due to excess calories 06/30/2018 High risk medication use 06/30/2018 Gastroesophageal reflux disease without esophagi tis 06/30/2018 High blood sugar 06/30/2018 Hypertension 06/29/2018 Cancer 06/29/2018 Overview (06/29/2018): cervical Hx of hysterectomy 06/29/2018 Chronic back pain 06/29/2018 Thyroid disease 06/29/2018 Abnormality of gait and mobi lity due to NTSCI Quadriparesis secondary to Cervical Myelopathy S/P Posterior Cervical Decompression Laminoplasty C3-4-5-6. [facility] admit 06/29/18. 06/29/2018 Overview (06/29/2018): This is a 72 year ld female who presented with complaints of leg and arm weakness and gait abnormality. She is followed on a regular basis by Dr. Craig Panchal and work up revealed severe cervical myelopathy. She indicated for the last 2 months because of the leg weakness she has been using a wheelchair to get around. In addition to the leg weakness she also complains of bilateral hand numbness and weakness. MRI Cervical Spine 06/25/18 revealed moderate spinal canal stenosis C3-4, C6-7, and severe spinal stenosis C5-6. Severe bilateral neurofarmainal stenosis at C5-6 and moderate stenosis at C3-5, C4-5, and C6-7. Seen by Dr. Godwin. Diagnosed with cervical spondylosis with myelopathy. Chest XR 06/26/18 showed NAD. EKG 06/26/18 revealed NSR. Left axis deviation. RBBB. Abnormal EKG. Echo/TTE 06/26/18 revealed 65% Ejection Fraction. Taken to OR on 06/26/18 for Posterior Cervical decompression Laminoplasty C3-4-5-6. The patient has been found to have severe abnormality of gait and mobility with impaired self care due to NTSCI Quadriparesis secondary to Cervical Myelopathy S/P Posterior Cervical Decompression Laminoplasty C3-4-5-and is admitted to the acute inpatient rehab program. Transcribed from pre-admission information sheet completed by Savannah Lira RN/mdl as directed by Dr. Marie Ramos. Obstructive sleep apnea syndrome 06/28/2018 Cervical myelopathy 06/25/2018 Endometrial cancer 05/25/2016 Uterine cancer 12/09/2015 Personal history of malignant neoplasm of cervix uteri 11/23/2013 H/O partial thyroidectomy 03/07/2013 Cervical spondylosis with myelopathy Bacteriuria Family History Medical History Relation Name Comments Arthritis Mother Cancer Mother Relation Name Status Comments Mother Social History Tobacco Use Types Packs/Day Years Used Date Smoking Tobacco: Former Smokeless Tobacco: Never Comments:quit 30 years ago Alcohol Use Standard Drinks/Week Comments Never 0 (1 standard drink = 0.6 oz pur e alcohol) AUDIT-C Answer Date Recorded Frequency of Alcohol Consumption Never 06/25/2018 Average Number of Drinks Not on file 019 Frequency of Binge Drinking Not on file 06/16 Comments No Sex and Gender Information Value Date Recorded Sex Assigned at Not on file Legal Sex Female 9:41 PM EST Gender Identity Not on file Sexual Orientation Not on file Last Filed Vital Signs Vital Sign Reading Time Taken Comments Blood Pressure 123/59 07/13/2018 12:12 PM EDT Pulse 67 07/13/2018 12:12 PM EDT Temperature 36.6 C (97.9 F) 01/05/2019 10:04 AM EDT Respiratory Rate 18 07/13/2018 5:55 AM EDT Oxygen Saturation 96% 07/13/2018 5:55 AM EDT Inhaled Oxygen Concentration - - Weight 99.8 kg (220 lb) 01/05/2019 10:04 AM EDT Height 162.6 cm (5' 4 ) 01/05/2019 10:04 AM EDT Body Mass Index 37.76 01/05/2019 10:04 AM EDT Plan of Treatment Not on file Medical Devices Implanted Type Area Scullion Chief Device Identifier Shelf Expiration Date Model / Serial / Lot Kit Sealant Surgiflo Hemostatic Matrix Implanted:Qty: 1 on 06/26/2018 by Lobo Godwin MD at [facility] Bone/[place] t/Tissue/ Human/Syn th N/A: Neck [employer]: [employer]-PM M 01/16/2020 [id number] / / Screw Lateral Mass 2.6 7mm Implanted:Qty: 5 on 06/26/2018 by Lobo Godwin MD at [facility] Spine N/A: Spine Cervical [employer]PMM [id number] / / Screw Leverage Laminar 2.6 X 5mm Implanted:Qty: 4 on 06/26/2018 by Lobo Godwin MD at [facility] Spine N/A: Spine Cervical [employer]-PMM [id number] / / Leverage Plate Implanted:Qty: 2 on 06/26/2018 by Lobo Godwin MD at [facility] N/A: Spine Cervical [id number] / / Leverage Plate Implanted:Qty: 2 on 06/26/2018 by Lobo Godwin MD at [facility] N/A: Spine Cervical [id number] / / Insurance AETNA MEDICARE Advance Directives * Full Code (Latest Code Status on File) Date Activated Date Inactivated Comments 06/30/2018 7:18 AM 07/13/2018 4:18 PM * Full Code Date Activated Date Inactivated Comments 06/29/2018 6:34 PM 06/30/2018 7:18 AM * Full Code Date Activated Date Inactivated Comments 06/25/2018 6:57 PM 06/29/2018 6:08 PM * Full Code Date Activated Date Inactivated Comments 06/25/2018 4:08 PM 06/25/2018 6:57 PM Care Teams Cistern Room Operator Relationship Specialty Start Date End Date Jhonatan Panchal DO PCP - General Internal Medicine 06/09/18
--- OUTSIDE RECORDS SUMMARY | 2025-01-15 19:48 | XMS_ITS | Clinical Summary ---
Author Organization [facility] Address [address] [place] [address] Phone Care Team Providers Care Machine Plate Stacker Name Role Phone Jhonatan Panchal DO Primary Care Provider [phone] Social History Tobacco Use Types Packs/Day Years Used Date Smoking Tobacco: Never Assessed Comments Unknown Sex and Gender Information Value Date Recorded Sex Assigned at Not on file Legal Sex Female 3:37 PM EST Gender Identity Not on file Sexual Orientation Not on file Plan of Treatment Not on file Care Teams Machine Plate Stacker Relationship Specialty Start Date End Date Jhonatan Panchal DO PCP - General 12/07/12
--- OUTSIDE RECORDS SUMMARY | 2025-01-15 19:49 | XMS_ITS | Clinical Summary ---
Author Organization [facility] Address [address] [place] [address] Care Team Providers Care Line Welder Name Role Phone Amparo Samano TINSEL MACHINE OPERATOR Unavailable [phone] Sylvain Linares DO Unavailable [phone] Lonnie Trivedi MD Primary Care Provider [phone] Allergies No known active allergies Medications cyanocobalamin (Vitamin B-12) 100 MCG tablet Take 100 mcg by mouth Daily Active rivaroxaban (Xarelto) 10 MG tablet Take 20 mg by mouth Daily Active lisinopril 10 MG tablet Take by mouth Daily Active hydroCHLOROthiaz kalpesh (HYDRODiuril) 12.5 MG tablet TAKE 1 TABLET DAILY NEEDED FOR FLUID RETENTION 4 Active scopolamine (Transderm-Scop) 1 mg/72 hr patch 72 hour patch APPLY TOPICALLY AND REPLACE EVERY 3 DAYS 4 Active Xarelto 20 MG tablet Take 20 mg by mouth Daily 4 Active citalopram (CeleXA) 10 MG tabletIndication s:Mood disturbance Take 1 tablet (10 mg) by mouth Daily 30 tablet 2 5 Active donepezil (Aricept) 5 MG tabletIndication s:Late onset Alzheimer's disease with behavioral disturbance (HCC) TAKE 1 TABLET BY MOUTH AT BEDTIME 90 tablet 5 Active memantine (Namenda) 10 MG tabletIndication s:Late onset Alzheimer's disease with behavioral disturbance (HCC) Take 1 tablet (10 mg) by mouth in the morning and 1 tablet (10 mg) before bedtime. 180 tablet 1 Active Active Problems Problem Noted Date Diagnosed Date Late onset Alzheimer's disease with behavioral d isturbance 09/30/2023 Dementia in other diseases c lassified elsewhere, unspecified severity, without behavioral disturbance, psychotic disturbance, mood disturbance, and anxiety 09/30/2023 Paroxysmal atrial fibrillation 09/30/2023 CHRISTIANO (obstructive sleep apnea) 09/30/2023 Incontinence 09/30/2023 Gait instability 09/30/2023 Family History Medical History Relation Name Comments Depression Father Relation Name Status Comments Father Social History Tobacco Use Types Packs/Day Years Used Date Smoking Tobacco: Never Smokeless Tobacco: Never Tobacco Cessation:Counseling Given: Not Answered Alcohol Use Standard Drinks/Week Comments Never 0 (1 standard drink = 0.6 oz pur e alcohol) Comments Unknown Sex and Gender Information Value Date Recorded Sex Assigned at Not on file Legal Sex Female 6:52 PM EDT Gender Identity Not on file Sexual Orientation Not on file Last Filed Vital Signs Vital Sign Reading Time Taken Comments Blood Pressure 122/86 09/05/2024 2:49 PM EDT Pulse 60 09/05/2024 2:49 PM EDT Temperature - - Respiratory Rate - - Oxygen Saturation - - Inhaled Oxygen Concentration - - Weight - - Height 154.9 cm (5' 1 ) 10/03/2023 2:43 PM EDT Body Mass Index - - Plan of Treatment Not on file Insurance [employer] MEDICARE ADVANTAGE Care Teams Line Welder Relationship Specialty Start Date End Date Lonnie Trivedi MD [address] [place] [id number] PCP - General Family Medicine 02/24/24 Amparo Samano NP Referring Physician Family Medicine 10/03/23 Sylvain Linares DO [address] [facility] [address] [place] [id number] Referring Physician Neurology 02/24/24
--- NOTE | 2025-01-15 20:01 | ED.GENADUL1 ---
HPI HPI - General Adult General Chief complaint: Shortness of Breath/Dyspnea Stated complaint: OTHER Time Seen by Provider: 01/15/25 19:59 Source: patient Mode of arrival: ambulance Limitations: altered mental status Limitations comment: dementia History of Present Illness HPI narrative: patient is not able to provide any history. sitting on the stretcher and does not appear to be in any distress. No respiratory distress noted. RA pulse ox 91% with RR 22. she does make eye contact but appears not to have a clue of what is going on per nursing family states patient was short of breath at home. Squad found pulse ox 88%. apparently given albuterol NMT and pulse ox improved to 99%. arrives here in no respiratory distress with pulse ox 96% RA. she has dementia and is not able to provide any history Related Data Home Medications ?Medication ?Instructions ?Recorded ?Confirmed citalopram 10 mg tablet 10 mg PO DAILY 01/15/25 01/15/25 donepezil 5 mg tablet 5 mg PO DAILY 01/15/25 01/15/25 lisinopril 10 mg tablet 10 mg PO DAILY 01/15/25 01/15/25 memantine 5 mg tablet 10 mg PO BID 01/15/25 01/15/25 rivaroxaban 20 mg tablet (Xarelto) 20 mg PO Q24H 01/15/25 01/15/25 Allergies Allergy/AdvReac Type Severity Reaction Status Date / Time No Known Drug Allergies Allergy Verified 01/24/23 14:29 Review of Systems ROS Status of ROS unobtainable due to mental status PFSH PFSH Social History Smoking status: Former smoker Exam Constitutional Vital Signs, click to edit/add: Last Vital Signs Temp 98.6 F 01/15/25 19:49 Pulse 116 H 01/15/25 19:49 Resp 22 H 01/15/25 19:49 BP 115/73 01/15/25 19:49 Pulse Ox 96 01/15/25 22:02 O2 Del Method Room Air 01/15/25 22:02 Common normals: no apparent distress, average body habitus, alert and well nourished [facility] Common normals: normocephalic and head/scalp atraumatic Eye Common normals: PERRL and EOMs intact bilaterally Respiratory Common normals: normal respiratory effort, no retractions, no use of accessory muscles and clear to auscultation bilaterally Cardio Common normals: S1 normal heart sound and S2 normal heart sound Rate: tachycardic GI Common normals: Normal to inspection, nondistended, normoactive bowel sounds present, soft to palpation and non-tender Extremity Common normals: normal to inspection Neuro Common normals: CN's II-XII intact bilaterally Course Vital Signs Vital signs: Vital Signs Temperature 98.6 F 01/15/25 19:49 Pulse Rate 116 H 01/15/25 19:49 Respiratory Rate 22 H 01/15/25 19:49 Blood Pressure 115/73 01/15/25 19:49 Pulse Oximetry 91 L 01/15/25 19:49 Oxygen Delivery Method Room Air 01/15/25 19:49 Temperature 98.6 F 01/15/25 19:49 Pulse Rate 116 H 01/15/25 19:49 Respiratory Rate 22 H 01/15/25 19:49 Blood Pressure 115/73 01/15/25 19:49 Pulse Oximetry 96 01/15/25 22:02 Oxygen Delivery Method Room Air 01/15/25 22:02 Medical Decision Making MDM Narrative Medical decision making narrative: patient reportedly short of breath at home. No evidence of dyspnea here. Workup neg except d-dimer was positive. CTA chest without PE but possible atelectasis vs pneumonia. CBC WNL, mild elevation of lactic acid. She was tachycardic on admission but this resolved after hydration. Will treat with keflex for possible pneumonia. Advised close follow up Lab Data Labs: Lab Results 01/15/25 01/15/25 01/16/25 Range/Units 20:28 20:40 00:25 WBC 10.1 (4.0-11.0) 10^3/uL RBC 4.93 (4.20-5.40) 10^6/uL Hgb 14.6 (12.0-16.0) g/dL Hct 44.1 (36.0-48.0) % MCV 89.5 (81.0-99.0) fL MCH 29.6 (26.7-34.0) pg MCHC 33.1 (29.9-35.2) g/dL RDW 14.4 (11.0-15.0) % Plt Count 229 (150-450) 10^3/uL MPV 9.4 L (9.5-13.5) fL Seg Neuts % (Manual) 94.0 H (43.0-75.0) Lymphocytes % (Manual) 4.0 L (20.5-60.0) % Monocytes % (Manual) 0.0 L (1.7-12.0) % Eosinophils % (Manual) 2.0 (0.9-7.0) % Basophils % (Manual) 0.0 L (0.2-2.0) % Neutrophils # (Manual) 9.49 H (1.4-6.5) 10^3/uL Lymphocytes # (Manual) 0.40 L (1.20-3.80) 10^3/uL Monocytes # (Manual) 0.00 L (0.30-0.80) 10^3/uL Eosinophils # (Manual) 0.20 (0.00-0.70) 10^3/uL Basophils # (Manual) 0.00 (0.00-0.10) 10^3/uL D-Dimer 3.15 H* (<=0.59) mg/L FEU Sodium 142 (136-145) mmol/L Potassium 3.8 (3.5-5.1) mmol/L Chloride 107 (98-107) mmol/L Carbon Dioxide 21.4 (21.0-32.0) mmol/L Anion Gap 17.4 BUN 11.0 (7.0-18.0) mg/dL Creatinine 1.15 H (0.55-1.02) mg/dL Est GFR ( Amer) 55 L (>=60 mL/min/1.73m^2) Est GFR (Non-Af Amer) 45 L (>=60 mL/min/1.73m^2) BUN/Creatinine Ratio 9.6 Glucose 176 H (74-106) mg/dL Lactate 2.6 H* 2.9 H* (0.4-2.0) mmol/L Calcium 9.3 (8.5-10.1) mg/dL Total Bilirubin 1.0 (0.2-1.0) mg/dL AST 20 (15-37) U/L ALT 20 (14-59) U/L Alkaline Phosphatase 72 (46-116) U/L Troponin I High Sens 15.4 (4.0-51.3) pg/mL Total Protein 7.0 (6.4-8.2) g/dL Albumin 3.2 L (3.4-5.0) g/dL Globulin 3.8 g/dL Albumin/Globulin Ratio 0.8 Urine Color Yellow (YELLOW) Urine Clarity Clear (CLEAR) Urine pH 5.5 (5.0-9.0) Ur Specific [place] >=1.030 A (1.005-1.025) Urine Protein Negative (NEG/TRACE) mg/dL Urine Glucose (UA) Negative (NEGATIVE) mg/dL Urine Ketones Trace A (NEGATIVE) mg/dL Urine Occult Blood Negative (NEGATIVE) Urine Nitrite Negative (NEGATIVE) Urine Bilirubin Negative (NEGATIVE) Urine Urobilinogen 0.2 (0.2-1.0) EU/dL Ur Leukocyte Esterase Negative (NEGATIVE) Urine RBC 2-5 A (0-2) #/HPF Urine WBC 0-2 A (NONE SEEN) #/HPF Ur Squamous Epith Cells Few A (NONE/RARE) #/LPF Urine Crystals Seen A (None Seen) #/HPF Calcium Oxalate Crystal Few Urine Bacteria Trace A (NONE SEEN) #/HPF Urine Casts Seen A (NONE SEEN) #/LPF Hyaline Casts Rare Urine Mucus Trace A (NONE SEEN) Discharge Plan Discharge Chief Complaint: Shortness of Breath/Dyspnea Clinical Impression: Shortness of breath, Pneumonia Patient Disposition: Home, Self-Care Prescriptions / Home Meds: No Action Xarelto 20 mg tablet 20 mg PO Q24H memantine 5 mg tablet 10 mg PO BID citalopram 10 mg tablet 10 mg PO DAILY donepezil 5 mg tablet 5 mg PO DAILY lisinopril 10 mg tablet 10 mg PO DAILY Print Language: Kinyarwanda Instructions: Pneumonia (ED), Shortness of Breath (ED) Additional Instructions: follow up with your doctor this week for recheck Referrals: Amparo Samano NP [Primary Care Provider] - 1 week
--- NOTE | 2025-01-15 20:03 | XR_ITS ---
[address] [address] Patient Name: DAISY GARCIA MRN: [id number] date: 1945 Sex: F Assigned Patient Location: ER Current Patient Location: ED.MAIN Accession/Order Number: [id number] Exam Date: 01/15/2025 20:15 Report Date: 01/15/2025 20:50 At the request of: KOURTNEY HUNTER MD Procedure: XR chest 1V Plain film chest Single view HISTORY: Shortness of breath COMPARISON: 11/09/2023 FINDINGS: SUPPORT DEVICES: None POSTSURGICAL CHANGES: Sternotomy HEART: Within normal limits PULMONARY TENZIN: Within normal limits MEDIASTINUM: Unremarkable LUNGS AND PLEURA: No acute lung process, pleural effusion or pneumothorax identified. Mild interstitial changes BONY STRUCTURES: Intact ADDITIONAL FINDINGS None XR/XR chest 1V IMPRESSION: No acute process. Similar mild interstitial changes Impression dictated by: Joao Bocanegra M.D. 01/15/2025 8:50 PM Dictation Location: [facility] Electronically authenticated by: [id number] Y Date: 01/15/2025 20:50
--- NOTE | 2025-01-15 20:03 | ECG_ITS ---
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: : 1945 Requested By: [id number] Order Number: [id number] Reading MD: Sylvain Sexton Measurements Intervals [place] Rate: 92 P: 200 [place]: 288 QRS: -38 QRSD: 100 T: 14 QT: 370 QTc: 420 Interpretive Statements technically poor tracing due to artifact 1220 probable sinus tachycardia (interpretation limited by artifact) 1470 with occasional supraventricular premature complexes 2231 First degree AV block 2440 Incomplete right bundle branch block [address] ST depression, possible digitalis effect LEFT ANTERIOR FASCICULAR BLOCK 8102 Low QRS voltage in chest leads 9150 abnormal ECG No previous ECG available for comparison Electronically Signed On 01-16-2025 13:18:09 EDT by Sylvain Sexton
[2025-01-15 20:35] LABS: Hematocrit 44.1 % (36.0-48.0); Hemoglobin 14.6 g/dL (12.0-16.0); Mean Corpuscular HGB Conc 33.1 g/dL (29.9-35.2); Mean Corpuscular Hemoglobin 29.6 pg (26.7-34.0); Mean Corpuscular Volume 89.5 fL (81.0-99.0); Platelet Count 229 10^3/uL (150-450); Red Blood Count 4.93 10^6/uL (4.20-5.40); White Blood Count 10.1 10^3/uL (4.0-11.0)
[2025-01-15 21:07] LABS: Lactate/Lactic Acid 2.6 mmol/L (0.4-2.0)
[2025-01-15] MEDS: 0.9 % SODIUM CHLORIDE 1,000 ML 999 ML IV ×2 (21:15→22:59)
[2025-01-15 21:19] LABS: Glucose Urine UA NEGATIVE (NEGATIVE)
[2025-01-15 21:23] LABS: Basophils Abs Manual 0.00 10^3/uL (0.00-0.10); Basophils Percent Manual 0.0 % (0.2-2.0); Lymphocytes Absolute Manual 0.40 10^3/uL (1.20-3.80); Lymphocytes Percent Manual 4.0 % (20.5-60.0); Monocytes Absolute Manual 0.00 10^3/uL (0.30-0.80); Monocytes Percent Manual 0.0 % (1.7-12.0); Segmented Neut Absolute Manual 9.49 10^3/uL (1.4-6.5); Segmented Neutrophils % Manual 94.0 (43.0-75.0)
[2025-01-15 21:24] LABS: Eosinophils Absolute Manual 0.20 10^3/uL (0.00-0.70); Eosinophils Percent Manual 2.0 % (0.9-7.0)
[2025-01-15 21:32] LABS: Crystals Seen? Seen #/HPF (None Seen)
[2025-01-15 21:33] LABS: Cast Seen? SEEN #/LPF (NONE SEEN)
[2025-01-15 23:23] LABS: Alanine Aminotransferase 20 U/L (14-59); Albumin Globulin Ratio 0.8; Albumin Level 3.2 g/dL (3.4-5.0); Alkaline Phosphatase 72 U/L (46-116); Anion Gap 17.4; Aspartate Amino Transferase 20 U/L (15-37); Blood Urea Nitrogen 11.0 mg/dL (7.0-18.0); Calcium 9.3 mg/dL (8.5-10.1); Carbon Dioxide 21.4 mmol/L (21.0-32.0); Chloride 107 mmol/L (98-107); Estimated GFR (African America 55 (>=60 mL/min/1.73m^2); Estimated GFR (Non-African Ame 45 (>=60 mL/min/1.73m^2); Globulin 3.8 g/dL; Glucose 176 mg/dL (74-106); Potassium 3.8 mmol/L (3.5-5.1); Sodium 142 mmol/L (136-145); Total Protein 7.0 g/dL (6.4-8.2)
[2025-01-16] VITALS (14 sets, daily range): BP systolic 118–138; BP diastolic 73–81; PULSE 82–90; O2SAT 95–97
[2025-01-16 00:57] LABS: Lactate/Lactic Acid 2.9 mmol/L (0.4-2.0)
[2025-01-16] MEDS: CEPHALEXIN 500 MG CAPSULE PO (01:51)
== END 2025-01-16 02:11 | disposition home or self-care (01) ==
PROVIDERS: Emergency Provider Internal Medicine; PCP Nurse Practitioner Family
DX: J18.9 Pneumonia, unspecified organism (principal); R06.02 Shortness of breath; F03.90 Unspecified dementia, unspecified severity, without behavioral disturbance, psychotic disturbance, mood disturbance, and anxiety; Z87.891 Personal history of nicotine dependence; R79.89 Other specified abnormal findings of blood chemistry
CPT/HCPCS: 36415; 71045; 71275; 80053; 81001; 83605; 84484; 85007; 85027; 85378; 93005; 99285; Q9967

== ENCOUNTER 2025-03-07 08:00 | Emergency (ER) | payer MEDICARE, SELFPAY ==
--- OUTSIDE RECORDS SUMMARY | 2024-02-28 07:00 | XMS_ITS ---
Author Organization [facility] Address [address] [address] Care Team Providers Care Vice President Of Nursing Name Role Phone Amparo Samano Primary Care Provider Unavailab JOHAN Lynch Unavailable [phone] REASON FOR VISIT 1 month f/u Encounters Encounter Location Date Provider Diagnosis [facility] [address] [place] [id number] 02/28/2024 JOHAN ANDERSON Plan Of Treatment Next Appt Details Provider Name:JOHAN ANDERSON, 11/2024 12:30:00 PM, [id number] [place] [address], [phone], Progress Notes * Mare GARCIADOB:1945 ( 79 yo F)Acc No.[id number]:02/28/2024 Progress Notes Patient: Mare RANGEL :?JOHAN ANDERSON APRN, ANGELODOB:1945???Age:78 Y ???Sex:FemaleDate:02/28/2024hone:[phone]:Critical access hospital [id number]:Amparo Samano Subjective: * Chief Complaints: * 1 . 1 month f/u. * Medical History: Objective: * Vitals: Assessment: Plan: * Treatment: Care Plan: * Problems: * Billing Information: * Visit Code: * Procedure Codes: Care Plan Details* * Electronic signature of JOHAN ANDERSON on 03/07/2025 at 08:10 AM ESTSign off status: Pending * Provider: Dougie ANDERSON APRN, LOGISTICS SUPPORT Date: 04/29/2023 Generated for Printing/Faxing/eTransmitting on:?03/07/2025 08:10 AM EST
[2025-03-07] VITALS (41 sets, daily range): BP systolic 87–136; BP diastolic 56–102; PULSE 86–160; RESP 16; TEMP 37.1; O2SAT 47–94; BMI 35.2
--- NOTE | 2025-03-07 | XR_ITS ---
The [address] [address] Patient Name: DAISY GARCIA MRN: [id number] date: 1945 Sex: F Assigned Patient Location: ER Current Patient Location: ER Accession/Order Number: [id number] Exam Date: 03/07/2025 08:25 Report Date: 03/07/2025 08:54 At the request of: KIMBERLYN SÁNCHEZ MD Procedure: XR chest 1V PORTABLE AP ERECT CHEST 0808 hours CLINICAL HISTORY: Shortness of breath. Intubation. COMPARISON: Chest x-ray and 01/15/2025 There is an endotracheal tube approximately 3 cm above the luz marina. Median sternotomy wires are noted. The left lung is clear. There is suspected volume loss on the right. Moderate pleural-parenchymal opacity is present throughout the hemithorax on that side. No pneumothorax is noted. The aorta is ectatic. Assessment of heart size is slightly limited by obscuring of the heart border on the right. The bony structures are osteopenic. XR/XR chest 1V IMPRESSION: ENDOTRACHEAL TUBE PLACEMENT, DESCRIBED. RIGHT-SIDED PLEURAL-PARENCHYMAL CHANGE. Impression dictated by: Myah Barney M.D. 03/07/2025 8:54 AM Dictation Location: [place] [address] Electronically authenticated by: [id number] Y Date: 03/07/2025 08:54
--- OUTSIDE RECORDS SUMMARY | 2025-03-07 08:11 | XMS_ITS | Clinical Summary ---
Author Organization [facility] Address [address], [address] [place] [address] Care Team Providers Care Survey Interviewer Name Role Phone Jhonatan Panchal DO Primary Care Provider [phone] Allergies No known active allergies Medications MedicationSigDispense QuantityRefillsLast FilledStart DateEnd DateStatus nabumetone (RELAFEN) 500 MG tablet Take 500 mg by mouth 2 times jqmqn05905/25/2017Active oxybutynin (DITROPAN-XL) 10 MG extended release tablet Take 10 mg by mouth lzype44605/27/2018Active carvedilol (COREG) 6.25 MG tablet Take 1 tablet by mouth 2 times daily (with meals) 60 tablet Active lisinopril (PRINIVIL;ZESTRIL) 5 MG tablet Take 1 tablet by mouth daily 30 tablet Active famotidine (PEPCID) 20 MG tablet Take 1 tablet by mouth daily 60 tablet Active Active Problems ProblemNoted DateDiagnosed DateMorbid obesity due to excess /15/2019 High risk medication use06/30/2018Gastroesophageal reflux disease without mzkzwzhglul92/15/2019High blood sugar06/30/20187109Rnfgvuvhmxut31/14/2019Cancer 06/29/2018 Overview (06/29/2018): cervical Hx of pbcfbqcermms63/14/2019Chronic back pain06/29/2018Thyroid iiaubgx7206/29/2018 Abnormality of gait and mobility due to NTSCI Quadriparesis secondary to Cervical Myelopathy S/P Posterior Cervical Decompression Laminoplasty C3-4-5-6. [facility] admit 06/29/18.06/29/2018 Overview (06/29/2018): This is a 72 year ld female who presented with complaints of leg and arm weakness and gait abnormality. She is followed on a regular basis by Dr. Craig Panchal and work up revealed severe cervical myelopathy. She indicated for the last 2 months because of the leg weakness she has been using a wheelchairto get around. In addition to the leg weakness she also complains of bilateral hand numbness and weakness. MRI Cervical Spine 06/25/18 revealed moderate spinal canal stenosis C3-4, C6-7, and severe spinal stenosis C5-6. Severe bilateral neurofarmainal stenosis at C5-6 and moderate stenosis at C3-5,C4-5, and C6-7. Seen by Dr. Godwin. Diagnosed [...] completed by Savannah Lira RN/mdl as directed byDr. Marie Ramos. Obstructive sleep apnea uqkybumr57/13/2019Cervical vedihrqbyr68/10/2019 Endometrial dgaufw4305/25/2016Uterine oudoyw5712/09/2015Personal history of malignant neoplasm of cervix uteri11/23/2013H/O partial yhzgglvennbwv70/20/2013 Cervical spondylosis with myelopathyBacteriuria Family History Medical HistoryRelationNameCommentsArthritisMotherCancerMotherRelationNameStatus CommentsMother Social History Tobacco UseTypesPacks/DayYears UsedDateSmoking Tobacco: FormerSmokeless Tobacco: Never Comments:quit 30 years ago Alcohol UseStandard Drinks/WeekCommentsNever0 (1 standard drink = 0.6 oz pure alcohol)AUDIT-CAnswerDate RecordedFrequency of Alcohol ConsumptionNever 06/25/2018Average Number of DrinksNot on file06/25/2018Frequency of Binge DrinkingNot on file06/25/2018CommentsNoSex and Gender InformationValue Date RecordedSex Assigned at BirthNot on fileLegal FwkDbomzx27/10/2013 9:41 PM ESTGender IdentityNot on fileSexual OrientationNot on file Last Filed Vital Signs Vital SignReadingTime TakenCommentsBlood Cdavgrur154/5903 12:12 PM EDT Aqmaj229207/13/2018 12:12 PM IAHOslvpwchrim11.6 ??C (97.9 ??F)01/05/2019 10:04 AM EDTRespiratory Psvq920107/13/2018 5:55 AM EDTOxygen Qnkbqyhdnv71%07/13/2018 5:55 AM EDTInhaled Oxygen Concentration--Ipptte55.8 kg (220 lb)01/05/2019 10:04 AM YXLNrlliu562.6 cm (5' 4 )01/05/2019 10:04 AM EDTBody Mass Index37.7609 10:04 AM EDT Plan of Treatment Not on file Medical Devices ImplantedTypeAreaManufacturerDevice IdentifierShelf Expiration DateModel / Serial / LotKit Sealant Surgiflo Hemostatic Matrix Implanted:Qty: 1 on 06/26/2018 by Lobo Godwin MD at [facility] Bone/Graft/Tissue/Human/SynthN/A: NeckJNJ: [employer]-[id number] / / Screw Lateral Mass 2.6 7mm Implanted:Qty: 5 on 06/26/2018 by Lobo Godwin MD at [facility] SpineN/A: Spine CervicalNUVASIVE INC-[id number] / / Screw Leverage Laminar 2.6 X 5mm Implanted:Qty: 4 on 06/26/2018 by Lobo Godwin MD at [facility] SpineN/A: Spine CervicalNUVASIVE [id number] / / Leverage Plate Implanted:Qty: 2 on 06/26/2018 by Lobo Godwin MD at [facility] N/A: Spine [id number] / / Leverage Plate Implanted:Qty: 2 on 06/26/2018 by Lobo Godwin MD at [facility] N/A: Spine [id number] / / Insurance Advance Directives * Full Code (Latest Code Status on File) Date ActivatedDate InactivatedComments06/30/2018 7:18 AM07/13/2018 4:18 PM * Full Code Date ActivatedDate InactivatedComments06/29/2018 6:34 PM06/30/2018 7:18 AM * Full Code Date ActivatedDate InactivatedComments06/25/2018 6:57 PM06/29/2018 6:08 PM * Full Code Date ActivatedDate InactivatedComments06/25/2018 4:08 PM06/25/2018 6:57 PM Care Teams Team MemberRelationshipSpecialtyStart DateEnd Date Jhonatan Panchal DO PCP - GeneralInternal Medicine06/09/18
--- OUTSIDE RECORDS SUMMARY | 2025-03-07 08:11 | XMS_ITS | Clinical Summary ---
Author Organization [facility] Address [address] [place] [address] Care Team Providers Care Environmental Aide Name Role Phone Jhonatan Panchal DO Primary Care Provider Allergies No known active allergies Medications MedicationSigDispense QuantityRefillsLast FilledStart DateEnd DateStatus CALCIUM CARBONATE/VITAMIN D3 (CALCIUM+D ORAL) Take by mouth.Active CHOL/GL/SER/RNA/PHEN/PRG/HB150 (SHARPER FOCUS ORAL) Take by mouth.Active lisinopril (ZESTRIL, PRINIVIL) 10 mg tablet Take 10 mg by mouth once daily.12/01/2015Active Active Problems ProblemNoted DateDiagnosed DateEndometrial mlphnm1805/25/2016Uterine cancer 12/09/2015Personal history of malignant neoplasm of cervix uteri11/23/2013H/O partial qbmhodorlbiar14/20/2013Cervical ca Family History Medical HistoryRelationCommentsBreast CancerPaternal GrandmotherRelationStatus CommentsBrotherDeceasedFatherDeceasedMotherDeceasedPaternal Grandmother Social History Tobacco UseTypesPacks/DayYears UsedDateSmoking Tobacco: WtazraNpneatqizx223 04/18/1931 - 04/18/1971Smokeless Tobacco: NeverAlcohol UseStandard Drinks/Week CommentsNo0 (1 standard drink = 0.6 oz pure alcohol)PHQ-2AnswerDate RecordedPHQ- 2 jyxtq167Area Deprivation IndexAnswerDate RecordedNational Score (1- 100), lower number is lower riskNot on file03/26/2020State Score (1-10), lower number is lower riskNot on file03/26/2020Data from: https://www.neighborhoodatlas.medicine.[facility].edu/. Last address used for calculationNot on file03/26/2020CommentsNoSex and Gender Information ValueDate RecordedSex Assigned at BirthNot on fileLegal FrqMjeidf66/02/2012 10:14 AM ESTGender IdentityNot on fileSexual OrientationNot on fileOccupation IndustryJob Start DateJob End DateNot on fileNot on fileNot on fileNot on file Last Filed Vital Signs Vital SignReadingTime TakenCommentsBlood Gdnhykif686/7608 2:10 PM EDT Biwhj4545 2:10 PM LTDZlrjtheqzyt85.4 ??C (97.6 ??F)12/12/2018 2:10 PM EDTRespiratory Zisa4433 2:10 PM EDTOxygen Cwqstasksf06%05/24/2018 1:49 PM ESTInhaled Oxygen Concentration--Ekoftq060.1 kg (245 lb)12/12/2018 2:10 PM BLOZymuyi467.6 cm (5' 4.02 )05/24/2018 1:49 PM ESTBody Mass Index42.03005/24/2018 1:49 PM EST Plan of Treatment Health MaintenanceDue DateLast DoneCommentsAnxiety Bwrzyohjr94/21/1962Depression Dvpdpdrau00/21/1962DTaP,Tdap,Td Vaccine (1 - Tdap)10/06/1962Pneumococcal Vaccine: 50+ (1 of 1 - PCV)10/06/1993Shingrix Vaccine (1 of 2)10/06/1993Bone Density Mbqocgzuz10/21/2009RSV Vaccine (1 - 1-dose 75+ series)10/06/2018Diabetes Wracgxvjo07, 06/28/2018, 06/27/2018, Additional history exists Advance Directive Sqifygrtjc44/01/2025ovid-19 Vaccine (1 - 2024-26 season) 2024Influenza Vaccine (#1)2024 Insurance Care Teams Team MemberRelationshipSpecialtyStart DateEnd Date Jhonatan Panchal DO PCP - GeneralInternal Medicine05/26/11
--- OUTSIDE RECORDS SUMMARY | 2025-03-07 08:11 | XMS_ITS | Patient Health Record ---
Author Organization [employer] [facility] Address [address] [place] [place] [address] Care Team Providers Care Maintenance And Utilities Supervisor Name Role Phone Amparo Samano Primary Care Provider Unavailab JOHAN Lynch Unavailable [phone] Allergies No Known Allergies Reason For Referral Reason referral for evaluat ion and treatment of pressure wound to left buttock Diagnosis 1 Pressure ulcer of bu ttock (L89.309) Diagnosis 2 Alzheimer's dementia without behavioral disturbance, unspecified timing of dementia onset (G30.9) Referral Organization [facility] Referring Provider First Name JOHAN Referring Provider Last Name JUSTIN Referring Provider Speciality Nurse Prac titioner Referred Provider [facility] General Notes Contact:, SonAlan, Clinical Notes The patient is nonve rbal. She is end-stage Alzheimer's. Poor appetite/dysphagia. Saw patient 1 week ago and had several small open areas to buttocks. Now one big area. Have tried barrier creams, hydrocolloid dressing. Having some bleeding. has been applying antibiotic spray and nonstick dressing. Referral Priority Routine Medications Medication SIG (Take, Route, Frequency, Duration) Notes Start Date End Date Status Hyoscyamine Sulfate 0.125 MG 1 tablet on the tongue and allow to dissolve as needed Orally every 8 hrs; Duration: 30 days 01/11/2025Not-TakingCetirizine HCl 10 MG1 tablet, as needed Orally Once a day; Duration: 30 day(s)ActiveDoxycycline Hyclate 100 MG1 tablet Orally twice a day; Duration: 7 days5ActiveCitalopram Hydrobromide 10 MG1 tablet Orally Once a day; Duration: 30 day(s)ActiveDonepezil HCl 5 MG1 tablet at bedtime Orally Once a dayActiveLisinopril 10 MG1 tablet Orally Once a day; Duration: 30 day(s)ActiveMemantine HCl 5 MG2 tablets Orally twice a dayActiveRivaroxaban 20 MG1 tablet with food Orally Once a day; Duration: 30 day(s)ActiveMucus Relief 400 MG1 tablet as needed Orally every 12 hrsActiveBacitracin-Polymyxin B -1 application as needed right eye every 4 hours; Duration: 10 day(s)01/31/2024 Active Social History Tobacco Use: Social History Observation Description Date Details (start date - stop date) Former Smoker NA - NA Tobacco Use/Smoking Question Answer Notes Are you a former smoker How long has it been since you last smoked?>20 yearsTobacco use other than smoking: Question Answer Notes Are you an other tobacco user? No Problems Problem Type SNOMED Code ICD Code Onset Dates Problem Status W/U Status Risk Notes Problem Dyspnea (362713014) Dyspnea, unspecified (R06.00) ActiveconfirmedProblemDysphagia (31991530)Dysphagia, unspecified (R13.10)Active confirmedProblemHistory of fall (893232377)History of falling (Z91.81)Active confirmedProblemHypertension (80486573)HTN (hypertension) (I10)Activeconfirmed ProblemEssential hypertension (31322081)Essential hypertension (I10)Active confirmedProblemMixed anxiety and depressive disorder (356954362)Anxiety and depression (F41.8)ActiveconfirmedProblemAlzheimer disease (86776203)Alzheimer disease (G30.9)ActiveconfirmedProblemAlzheimer's disease (87569069)Alzheimer's dementia without behavioral disturbance, unspecified timing of dementia onset (G30.9)ActiveconfirmedProblemConjunctivitis (9605407)Conjunctivitis (H10.9) ActiveconfirmedProblemHistory of DVT (deep vein thrombosis) (127640493)History of DVT (deep vein thrombosis) (Z86.718)ActiveconfirmedProblemDifficulty swallowing (062301638)Difficulty swallowing (R13.10)ActiveconfirmedProblemEx- tobacco user (finding) (453612847)History of tobacco abuse (Z87.891)Active confirmedProblemDisturbance of salivary secretion (68053166)Increased oropharyngeal secretions (K11.7)ActiveconfirmedProblemHistory of malignant neoplasm of cervix (574860646)History of cervical cancer (Z85.41)Activeconfirmed ProblemPressure injury of buttock (disorder) (239939138)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)ActiveconfirmedProblemHistory of disease caused by Severe acute respiratory syndrome coronavirus 2 (situation) (153316727432301643)Personal history of COVID-19 (Z86.16)ActiveconfirmedProblemDepressive disorder (disorder) (61509908)Depression, unspecified depression type (F32.A)ActiveconfirmedProblem Chronic kidney disease stage 3 (disorder) (497922556)Chronic kidney disease, stage 3 (N18.30)Activeconfirmed Vital Signs Heart Rate 58 /min 03/06/2025 Ebvhoudvslt27.8 degrees Ymhbegmttd91/19/2025Respiratory Rate28 /min03/06/2025 Blood pressure rppxjhmoy16 mm Hg03/06/20254461Riedwruk86 %03/06/20256203Zqvvsx3 ft 1 in in03/06/2025lood pressure bsgvgupb977 mm Hg03/06/2025 Encounters Encounter Location Date Provider Diagnosis [address] [address] 03/21/2024 JOHAN ANDERSON Alzheimer's dementia without behavioral disturbance, unspecified timing of dementia onset G30.9 ; Dysphagia, unspecified R13.10 ; Pressure ulcer of buttock L89.309 and Encounter for palliative care Z51.[address] [address] 05/21/2024 JOHAN ANDERSON Alzheimer's dementia without behavioral disturbance, unspecified timing of dementia onset G30.9 ; Dysphagia, unspecified R13.10 ; Pressure ulcer of buttock L89.309 and Encounter for palliative care Z51.[address] [address] 07/18/2024 JOHAN ANDERSON Alzheimer's dementia without behavioral disturbance, unspecified timing of dementia onset G30.9 ; Dysphagia, unspecified R13.10 ; Pressure ulcer of buttock L89.309 and Encounter for palliative care Z51.5 [facility] [address] [place] [address] 09/17/2024 JOHAN ANDERSON Alzheimer's dementia without behavioral disturbance, unspecified timing of dementia onset G30.9 ; Dysphagia, unspecified R13.10 and Encounter for palliative care Z51.5 [facility] [address] [place] [address] 11/19/2024 JOHNA ANDERSON Alzheimer's dementia without behavioral disturbance, unspecified timing of dementia onset G30.9 ; Dysphagia, unspecified R13.10 and Encounter for palliative care Z51.5 [facility] [address] [place] [address] 01/11/2025 JOHAN ANDERSON Alzheimer's dementia without behavioral disturbance, unspecified timing of dementia onset G30.9 ; Dysphagia, unspecified R13.10 ; Excessive cerumen in both ear canals H61.23 and Encounter for palliative care Z51.5 [facility] [address] [place] [address] 02/26/2025 JOHAN ANDERSON Alzheimer's dementia without behavioral disturbance, unspecified timing of dementia onset G30.9 ; Dysphagia, unspecified R13.10 and Encounter for palliative care Z51.5 [facility] [address] [place] [address] 03/06/2025 JOHAN ANDERSON Encounter for palliative care Z51.5 ; Alzheimer's dementia without behavioral disturbance, unspecified timing of dementia onset G30.9 ; Pressure ulcer of buttock L89.309 and Dysphagia, unspecified R13.10 [facility] [address] [place] [address] 07/02/2024 JOHAN ANDERSON [facility] [id number] [place] [address]/10/2025JOHAN ANDERSON [facility] [id number] [place] [address]/10/2025JOHAN ANDERSON [facility] [id number] [place] [address]/08/2024JOHAN ANDERSON [facility] [id number] [place] [address]/26/2025JOHAN ANDERSON Dysphagia, unspecified R13.10[place] [id number] [place] [address], [place] [address]/[facility] [id number] [facility] [place] [address]/[facility] [id number] [facility] [place] [address]/ [facility] [id number] [facility] [place] [address]/10/2024RAE JUSTIN Assessments Encounter Date Diagnosis (ICD Code) Assessment Notes Treatment Notes Treatment Clinical Notes Section Notes 03/21/2024 Alzheimer's dementia without behavioral disturbance, unspecified [...] to chew and swallow. Continue current regimen 05/21/2024lzheimer's dementia without behavioral disturbance, unspecified timing of dementia onset (ICD-10 -G30.9) Patient diagnosed with Alzheimer's approximately 5 years [...] Using thickener for fluids Continue current regimen 07/18/2024Dysphagia, unspecified (ICD-10 - R13.10) Patient has history [...] air. Patient to sit up when eating/drinking. 07/18/2024lzheimer's dementia without behavioral disturbance, unspecified timing of dementia onset (ICD-10 -G30.9) Patient diagnosed with Alzheimer's approximately 6 years [...] assist with standing and is no longer standing.Family uses ceiling lift for transfers. She is [...] was 38cm on 11/24/2023 Continue current regimen 09/17/2024Dysphagia, unspecified (ICD-10 - R13.10) Patient has history [...] air. Patient to sit up when eating/drinking. 09/17/2024lzheimer's dementia without behavioral disturbance, unspecified timing of dementia onset (ICD-10 -G30.9) Patient diagnosed with Alzheimer's approximately 7 years [...] 1-2 hours for meals. Needs cues for chewing/swallowing. Liquids thickened (still liquid consistency). Patient does cough with eating/drinking. Has history of dysphagia. Encouraged family to use more th ickener to try and decrease risk for aspiration. Patient is non-ambulatory. In March, was able to assist with standing and is no longer standing.Family uses ceiling lift for transfers. She is [...] MAC 34cm (left arm) Continue current regimen 11/19/2024Dysphagia, unspecified (ICD-10 - R13.10) Patient has history [...] stay upright for 30 minutes after eating. 11/19/2024lzheimer's dementia without behavioral disturbance, unspecified timing of dementia onset (ICD-10 -G30.9) Patient diagnosed with Alzheimer's approximately 7 years [...] 1-2 hours for meals. Needs cues for chewing/swallowing. Sometimes food/liquid just pours from her mouth. [...] assist with standing and is no longer standing.Family uses ceiling lift for transfers. 2 months [...] to bilateral buttocks. Currently using Desitin cream. Husbanddoes have hydrocolloid dressings but states he has [...] (left arm); no change from last visit. 12/11/2024Dysphagia, unspecified (ICD-10 - R13.10)09/26/2025Dysphagia, unspecified (ICD-10 - R13.10) Patient has history of dysphagia. Coughing with food and fluid. Family has been using thickener andspoon feeding liquids. Congestion to throat/upper chest. Lungs [...] stay upright for 30 minutes after eating. 01/11/2025lzheimer's dementia without behavioral disturbance, unspecified timing of dementia onset (ICD-10 -G30.9) Patient diagnosed with Alzheimer's approximately 7 years [...] 2 hours for meals. Needs cues for chewing/swallowing. Sometimes food/liquid just pours from her mouth. [...] assist with standing and is no longer standing.Family uses ceiling lift for transfers. In September, [...] areas to bilateral buttocks. Currently using hydrocolloid dressingsbut sometimes has trouble getting them to stick. -Make sure area is clean and dry before applying patches -Making sure to turn/reposition when in bed. -Frequent incontinence care. - agreeable to plan. No recent infections. No recent hospitalizations No recent weight checked. MAC was 38cm on 11/24/2023, 37cm in July, current MAC 34cm (left arm); no change from last visit. 02/26/2025Dysphagia, unspecified (ICD-10 - R13.10) Patient has history of dysphagia. Coughing with food and fluid. Family has been using thickener andspoon feeding liquids. Lungs clear. Oxygen saturation decreasing but goes back up after coughing. gave Levsin a couple of times but stopped and restarted the Scopolamine patches. Continue to thicken liquids; discussed risk for aspiration. Discussed using more thickener to achieve honey-consistency. Patient was treated for pneumonia with oral antibiotics about a month ago. Education provided on dysphagia, aspiration, and the risk for pneumonia. Lung sounds clear this visit. Due to O2 saturation dropping, order for home oxygen placed Patient to sit up when eating/drinking and stay upright for 30 minutes after eating. 02/26/2025lzheimer's dementia without behavioral disturbance, unspecified timing of dementia onset (ICD-10 -G30.9) Patient diagnosed with Alzheimer's approximately 7 years ago. She does continue to follow with [facility]. Last appointment on 09/05/24 Patient is alert, nonverbal. Will make eye contact for a few seconds; no longer smiling Patient is dependent on family for 6/6 ADLs. Appetite decreased. Eats 2 meals a day; was eating 2-3 cups of food/day, but now only eating 1-2 cups of food/day. Does need to be fed. Taking approximately 2 hours for meals. Needs cues for chewing/swallowing. Holds food in her mouth. Sometimes food/liquid just pours from her mouth. Liquids thickened (still liquid consistency). Patient does cough with eating/drinking. Has history of dysphagia. -Again encouraged family to use more thickener (honey consistency) -Patient to sit upright during meals and for at least 30 minutes after eating -Soft food, small bites Sleeping more throughout the day; usually awake for about 1 hour at a time. Patient is non-ambulatory. In March, was able to assist with standing and is no longer standing.Family uses ceiling lift for transfers. In September, the patient was able to sit upright in her wheelchair. Leans to the side and needs propped Patient is incontinent of bowel and bladder. Wears briefs. Several small (< 0.5cm) open areas to bilateral buttocks. Alternating between using hydrocolloiddressings and barrier cream. -Making sure to turn/reposition when in bed. -Frequent incontinence care. - agreeable to plan. No recent infections. No recent hospitalizations No recent weight checked. MAC was 38cm on 11/24/2023, 37cm in July, MAC 34cm (left arm) 01/11/25; current MAC LUE 29, RUE 29.5 03/06/2025Encounter for palliative care (ICD-10 - Z51.5) Patient is alert but confused. Nonverbal. Patient's makes medical decisions for her. Discussed disease progression, quality of life, symptom management, and goals of care with the patient's and son. Patient lives at home with her , daughter, and son who all act as caregivers.The family plans to keep her in the home and kept comfortable. The would like for the patient to eat more but states his main goal is comfort. GOC: respiratory management, comfort measures. POA and DNRCC documents in the chart. No changes to ACP this visit. Emergency Contacts: , Junior Daugherty is POA, . Patient's son, Rob Daugherty, . PPS 30%. Prognosis: < 6 months. FAST score 7f (due to no longer smiling). Decline noted with increased coughing with meals, decreased appetite, pocketing of food, worsening open area to buttock, FAST score 7e to 7f, and decrease in MAC. Patient is Hospice appropriate at this time. Hospice discussion held with the patient's and son once again. The acknowledges the patient's decline in condition. He states that he was not happy with prior hospice services and does not want a bunch of people in his home. Declines informational with another hospice group. Will continue to hold discussions about Hospice and the benefits involved at further visits. Next visit scheduled visit in 2 weeks, per family request. The family agrees to call if anything changes. Total time spent 95 minutes reviewing patient's medical history, medications, allergies, face to face visit, physical exam, and documentation of visit. 03/06/2025lzheimer's dementia without behavioral disturbance, unspecified timing of dementia onset (ICD-10 -G30.9) Patient diagnosed with Alzheimer's approximately 7 years ago. She does continue to follow with [facility]. Last appointment on 09/05/24 Patient is alert, nonverbal. Will make eye contact for a few seconds; no longer smiling Patient is dependent on family for 6/6 ADLs. Appetite decreased. Eats 2 meals a day; was eating 2-3 cups of food/day, but now only eating 1-2 cups of food/day. Does need to be fed. Taking approximately 2 hours for meals. Needs cues for chewing/swallowing. Holds food in her mouth. Sometimes food/liquid just pours from her mouth. Liquids thickened (still liquid consistency). Patient does cough with eating/drinking. Has history of dysphagia. -Again encouraged family to use more thickener (honey consistency) -Patient to sit upright during meals and for at least 30 minutes after eating -Soft food, small bites, high protein Sleeping more throughout the day; usually awake for about 1 hour at a time. Patient is non-ambulatory. In March 2024, was able to assist with standing and is no longer standing. Family uses ceiling lift for transfers. In September, the patient was able to sit upright in her wheelchair. Leans to the side and needs propped Patient is incontinent of bowel and bladder. Wears briefs. Has had decreased urinary output Several small (< 0.5cm) open areas to bilateral buttocks at last visit, now left buttock increase in size. Tried alternating between using hydrocolloid dressings and barrier cream. Dressings not sticking. Will consult with wound care. -Making sure to turn/reposition when in bed. -Frequent incontinence care. - agreeable to plan. Monitor BP and give diuretic if SBP > 100 No recent hospitalizations No recent weight checked. MAC was 38cm on 11/24/2023, 37cm in July, MAC 34cm (left arm) 01/11/25; current MAC LUE 29, RUE 29.5 FAST 7f 03/06/2025Pressure ulcer of buttock (ICD-10 - L89.309) The patient has had ongoing small open areas to bilateral buttocks. They will open and close. The was alternating between hydrocolloid dressings and barrier cream. In the last week, the left buttock wound has worsened and is now measuring approximately 7cm X 4 cm. Reported bloody drainage. The is using an antibiotic spray and covering with a non-stick pad. Keep area dry Frequent incontinence care Reposition in bed Encouraged protein intake if possible Referral to wound care 02/26/2025Encounter for palliative care (ICD-10 - Z51.5) Patient is alert but confused. Nonverbal. Patient's makes medical decisions for her. Discussed disease progression, quality of life, symptom management, and goals of care with the patient's and son. Patient lives at home with her , daughter, and son who all act as caregivers.The family plans to keep her in the home and kept comfortable. The would like for the patient to eat more but states his main goal is comfort. GOC: respiratory management, comfort measures. POA and DNRCC documents in the chart. No changes to ACP this visit. Emergency Contacts: , Junior Daugherty is POA, . Patient's son, Rob Daugherty, . PPS 30%. Prognosis: < 6 months. FAST score 7f (due to no longer smiling). Decline noted with increased coughing with meals, decreased appetite, continued open areas to buttocks, FAST score 7e to 7f, and decrease in MAC. Patient is Hospice appropriate at this time. Hospice discussion held with the patient's and son. The acknowledges the patient's decline in condition. He states that he was not happy with prior hospice services and does not want a bunch of people in his home. Will continue to hold discussions about Hospice and the benefits involved at further visits. Next visit scheduled visit in 1 week, per family request. The family agrees to call if anything changes. Total time spent 95 minutes reviewing patient's medical history, medications, allergies, face to face visit, physical exam, and documentation of visit. 01/11/2025Excessive cerumen in both ear canals (ICD-10 - H61.23) voiced that there was increased wax build up to patient's left ear. Examined both ears withotoscope. Unable to visualize TMs. Used lighted curette to remove moderate amount of soft cerumen from both ear canals. The patient tolerated well. Once cerumen removed, able to visualize TMs. No signs of infection noted.11/19/2024 Encounter for palliative care (ICD-10 - Z51.5) [...] and DNRCC documents in the chart. No changesto ACP this visit. Emergency Contacts: Junior Daugherty is POA, . Patient's son, Rob Daugherty, . PPS 30%. Prognosis: < 6 months. FAST score 7e. Decline noted with increased coughing with meals,needing cues with meals, open areas to buttocks, FAST score 7d to 7e, needing propped while sitting. Patient is Hospice appropriate at this time. Hospice discussion held with the patient's and daughter. He states he does not feel that she is ready. He is currently not in a Hospice mindset. W ill continue to hold discussions about Hospice and the benefits involved. Next visit scheduled for two months, per family request. Will make touch point calls in between visits to monitor patient's condition. The family agrees to call if anything changes. Total time spent 85 minutes reviewing patient's medical history, medications, allergies, face to face visit, physical exam, and documentation of visit. 09/17/2024Encounter for palliative care (ICD-10 - Z51.5) Patient [...] and DNRCC documents in the chart. No changesto ACP this visit. Emergency Contacts: Junior Daugherty is POA, . Patient's son, Rob Daugherty, . PPS 30%. Prognosis: < 6 months. FAST score 7d. Decline noted with increased coughing with meals,needing cues with meals, open area to buttocks. [...] visit, physical exam, and documentation of visit. 07/18/2024Pressure ulcer of buttock (ICD-10 - L89.309) At the last visit, the previously open areas to buttocks had healed. Now has several open areas to bilateral buttocks. Patient is chair bound and incontinent of bowel/bladder. Discussed repositioning often to decrease pressure Continue with alternating pressure air mattress Frequent incontinent care Restart with hydrocolloid patches 05/21/2024Dysphagia, unspecified (ICD-10 - R13.10) Patient has history of dysphagia. Coughing mostly after liquids. Family has been using thickener and spoon feeding liquids. Congestion to throat/upper chest. Lungs clear. Continue with Scopolamine patches Continue to thicken liquids Lung sounds clear this visit. O2 saturation 95% on room air. Patient to sit up when given fluids. 03/21/2024ysphagia, unspecified (ICD-10 - R13.10) Patient has history of dysphagia. Coughing mostly after liquids. Family has been using thickener and spoon feeding liquids. Congestion to throat/upper chest. Lungs clear. Afebrile. Continue with Scopolamine patches Discussed making thicker consistency to see if patient could tolerate better. Lung sounds clear this visit. O2 saturation 95% on room air. Patient to sit up when given fluids. 03/21/2024ressure ulcer of buttock (ICD-10 - L89.309) Patient with several small open areas to bilateral buttocks, all less than 0.5cm. states hehad stopped using the patches because they were [...] did purchase new air mattress that alternates pressure/reduction Frequent incontinent care Continue with hydrocolloid patches to open areas 05/21/2024Pressure ulcer of buttock (ICD-10 - L89.309) The open areas to patient's buttocks are now closed. continues to use Desitin cream for protection. Patient is chair bound and incontinent of bowel/bladder. Discussed repositioning often to decrease pressure Continue with alternating pressure air mattress Frequent incontinent care Continue with hydrocolloid patches if opens back up 07/18/2024Encounter for palliative care (ICD-10 - Z51.5) Patient is alert but confused. Nonverbal. Patient's makes medical decisions for her. Discussed disease progression, quality of life, symptom management, and goals of care with the patient's , son, and daughter. Patient lives at home with her , daughter, and son who all act as c aregivers. She appears well cared for at home. [...] 7d. Decline noted with increased coughing with meals,decreased ability to stand, reoccurring open areas to buttocks. Patient is not Hospice appropriate at this time. Hospice discussion held with the patient's and children. He states he does notfeel that she is ready. He is currently not in a Hospice mindset. Will continue to hold discussionsabout Hospice and the benefits involved. Next visit scheduled for two months, per family request. Will make touch point calls in between visits to monitor patient's condition. Total time spent 85 minutes reviewing patient's medical history, medications, allergies, face to face visit, physical exam, and documentation of visit. 01/11/2025Encounter for palliative care (ICD-10 - Z51.5) Patient [...] and DNRCC documents in the chart. No changesto ACP this visit. Emergency Contacts: , Junior Daugherty is POA, . Patient's son, Rob Daugherty, . PPS 30%. Prognosis: < 6 months. FAST score 7e. Decline noted with increased coughing with meals,length of time needed for meals, continued open [...] visit, physical exam, and documentation of visit. 03/06/2025Dysphagia, unspecified (ICD-10 - R13.10) Patient has history of dysphagia. Coughing with food and fluid. Family has been using thickener andspoon feeding liquids. Lungs clear. Oxygen saturation 92% on 2L of oxygen. Tachypnea gave Levsin a couple of times but stopped and restarted the Scopolamine patches. Having increased sputum (mostly clear) and congestion; will start antibiotics Continue to thicken liquids; discussed risk for aspiration. Discussed using more thickener to achieve honey-consistency. Patient was treated for pneumonia with oral antibiotics about a month ago. Education provided on dysphagia, aspiration, and the risk for pneumonia. Patient to sit up when eating/drinking and stay upright for 30 minutes after eating. Discussed natural decrease in appetite due to disease progression and not forcing patient to eat Monitor for pocketing of food [facility] Patient is alert but confused. Nonverbal. Patient's makes medical decisions for her. Discussed disease progression, quality of life, and goals of care with the patient's and daughter.Patient lives at home with her , daughter, [...] to the cost. He agrees to phone callsto monitor the patient's condition. Decline noted with increased sleeping, coughing with meals/fluids. Next visit scheduled for two months, per family request. Total time spent 85 minutes reviewing patient's medical history, medications, allergies, face to face visit, physical exam, and documentation of visit. [facility] - [facility] Patient [...] plan to keep her in the home andkept comfortable. PPS 30%. FAST score 7d. Patient is most likely hospice appropriate but patient's does not want hospice services at this time. [facility] is currently providing PT for the patient and also discussed Hospice with the . He states he will discuss it further with his family and if he has any questions, he would call. States that he would like current palliative visits every 2 months due to the cost. Decline noted with inability to stand. Next visit scheduledfor two months, per family request. Total time spent 85 minutes reviewing patient's medical history, medications, allergies, face to face visit, physical exam, and documentation of visit. 03/21/20244780Dluxq50/26/2025Other Plan Of Treatment Next Appt Details Provider Name:JOHAN ANDERSON, 11/2024 12:30:00 PM, [address] [place] [address], [id number], Insurance Providers Payer Name Payer Address Payer Phone Subscriber Number Group Number Insured Name Patient Relationship to Insured Coverage Start Date Coverage End Date [employer] Advantage PPO [address] [place] [address] [id number], MarySelf - patient is the insured Medical (General) [...] Z91.81 Surgical History Surgery Date(Month/Year) Cervical Cancer/hysterectomy 2005 Thyroidectomy Neck [id number] History Reason Date(Month/Year) Covid (@ [facility]) 10/2021 ER visit; [facility] 12/2024
--- OUTSIDE RECORDS SUMMARY | 2025-03-07 08:11 | XMS_ITS | Clinical Summary ---
Author Organization [facility] Address [address] [place] [address] Phone Care Team Providers Care Cafe Operator Name Role Phone Jhonatan Panchal DO Primary Care Provider [phone] Social History Tobacco UseTypesPacks/DayYears UsedDateSmoking Tobacco: Never Assessed CommentsUnknownSex and Gender InformationValueDate RecordedSex Assigned at Not on fileLegal LwbMlwikh68/25/2022 3:37 PM ESTGender IdentityNot on fileSexual OrientationNot on file Plan of Treatment Not on file Care Teams Team MemberRelationshipSpecialtyStart DateEnd Date Jhonatan Panchal DO [facility]12/07/12
--- OUTSIDE RECORDS SUMMARY | 2025-03-07 08:11 | XMS_ITS | Clinical Summary ---
Author Organization [facility] Address [address] [place] [address] Care Team Providers Care Senior Data Mining Analyst Name Role Phone Amparo Samano SURFACE BOSS Unavailable [phone] Sylvain Linares DO Unavailable [phone] Lonnie Trivedi MD Primary Care Provider [phone] Allergies No known active allergies Medications MedicationSigDispense QuantityRefillsLast FilledStart DateEnd DateStatus cyanocobalamin (Vitamin B-12) 100 MCG tablet Take 100 mcg by mouth DailyActive rivaroxaban (Xarelto) 10 MG tablet Take 20 mg by mouth DailyActive lisinopril 10 MG tablet Take by mouth DailyActive hydroCHLOROthiazide (HYDRODiuril) 12.5 MG tablet TAKE 1 TABLET DAILY NEEDED FOR FLUID KULBGBQAE46/03/2024ctive scopolamine (Transderm-Scop) 1 mg/72 hr patch 72 hour patch APPLY TOPICALLY AND REPLACE EVERY 3 DAYS02/02/2024ctive Xarelto 20 MG tablet Take 20 mg by mouth Daily02/18/2024ctive citalopram (CeleXA) 10 MG tablet Indications:Mood disturbanceTake 1 tablet (10 mg) by mouth Daily 30 tablet 5Active donepezil (Aricept) 5 MG tablet Indications: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 180 tablet 5Active Active Problems ProblemNoted DateDiagnosed DateLate onset Alzheimer's disease with behavioral /14/2024ementia in other diseases classified elsewhere, unspecified severity, without behavioral disturbance, psychotic disturbance, mood disturbance, and vfdjcbm6409/30/2023aroxysmal atrial elvtnguftxqh20/14/2024 CHRISTIANO (obstructive sleep apnea)09/30/20239105Vzqnovbsdood84/14/2024Gait instability 09/30/2023 Family History Medical HistoryRelationNameCommentsDepressionFatherRelationNameStatusComments Father Social History Tobacco UseTypesPacks/DayYears UsedDateSmoking Tobacco: NeverSmokeless Tobacco: Never Tobacco Cessation:Counseling Given: Not Answered Alcohol UseStandard Drinks/WeekCommentsNever0 (1 standard drink = 0.6 oz pure alcohol)CommentsUnknownSex and Gender InformationValueDate RecordedSex Assigned at BirthNot on fileLegal RrjAnlfpa43/15/2023 6:52 PM EDTGender Identity Not on fileSexual OrientationNot on file Last Filed Vital Signs Vital SignReadingTime TakenCommentsBlood Akboywzm484/8605 2:49 PM EDT Rpxyc9262/21/2025 2:49 PM EDTTemperature--Respiratory Rate--Oxygen Saturation-- Inhaled Oxygen Concentration--Weight--Icsiof187.9 cm (5' 1 )10/03/2023 2:43 PM EDTBody Mass Index-- Plan of Treatment Not on file Insurance Care Teams Team MemberRelationshipSpecialtyStart DateEnd Date Lonnie Trivedi MD [address] [facility] [address] [place] [address] PCP - GeneralFamily Kjtdrkhi92/8/24 Amparo Samano NP [address] [address] Referring PhysicianFamily Medicine10/03/23 Sylvain Linares DO [address] [place] [id number] Referring UhxhoifavExgmwswbx41/8/24
--- OUTSIDE RECORDS SUMMARY | 2025-03-07 08:11 | XMS_ITS ---
Author Organization [facility] Address [address] [place], [place] [id number] Care Team Providers Care Photo Stylist Name Role Phone Jhonatan Panchal Primary Care Provider [phone] Active Problems ProblemNoted DateDiagnosed DateEndometrial wgmvfw0005/25/2016Uterine cancer 12/09/2015Personal history of malignant neoplasm of cervix uteri11/23/2013H/O partial lopyflkdjbwsw66/20/2013Cervical ca Current Treatment and Therapy Plans No current plan information found. Past Treatment and Therapy Plans Plan NameStart DateDiscontinue DateTreatment MedicationsDiscontinue ReasonPlan ProviderCyclesGI FLUIDS05/07/2013No medications scheduled.Treatment Complete Celia Wallace, PA-C1 of 1 cycle started
[2025-03-07] MEDS: ETOMIDATE 20 MG/10 ML VIAL IVP ×2 (08:12→08:20)
--- OUTSIDE RECORDS SUMMARY | 2025-03-07 08:15 | XMS_ITS | CCD ---
Author Organization [facility] Care Team Providers Care Plant Maintenance Mechanic Name Role Phone PANDA, ALONSO Unavailable Unavailable IMCA Unavailable Unavailable IMCA Unavailable Unavailable PANDA, ALONSO Unavailable Unavailable IMCA Unavailable Unavailable IMCA Unavailable Unavailable IMCA Unavailable Unavailable PANDA, ALONSO Unavailable Unavailable PANDA, ALONSO Unavailable Unavailable PANDA, ALONSO Unavailable Unavailable JHONATAN AGUILERA Primary Care Unavailable MERYL, EMMA H. Admitting Unavailable MERYL, EMMA H. Attending Unavailable MARILYN FERRERA Consulting Unavailable SCULLIN, ESTEBAN Admitting Unavailable SCTHAI, ESTEBAN Attending Unavailable JHONATAN AGUILERA Primary Care Unavailable MERYL, EMMA H. Consulting Unavailable NARAGHI, AMIR Consulting Unavailable UZIEL, FRANKY A Consulting Unavailable KOLISA, BLEDAR Consulting Unavailable Rosanna, Heber Unavailable Easterwood, Leoncio Unavailable Desiree Hastings Admitting Unavailable Vandana Herrera Attending Unavailable Easterwood, Leoncio J Primary Care Unavailable ROSANNA, HEBER Admitting Unavailable ROSANNA, HEBER Attending Unavailable EASTERWOOD, LEONCIO Primary Care Unavailable ROSANNA, HEBER Consulting Unavailable ROSANNA, HEBER Admitting Unavailable ROSANNA, HEBER Attending Unavailable EASTERWOOD, LEONCIO Primary Care Unavailable ROSANNA, HEBER Consulting Unavailable ROSANNA, HEBER Admitting Unavailable ROSANNA, HEBER Attending Unavailable EASTERWOOD, LEONCIO Primary Care Unavailable ROSANNA, HEBER Consulting Unavailable EASTERWOOD, LEONCIO Admitting Unavailable EASTERWOOD, LEONCIO Attending Unavailable EASTERWOOD, LEONCIO Primary Care Unavailable DR JOSUÉ MOELLER Consulting Unavailable EASTERWOOD, LEONCIO Consulting Unavailable ROSANNA, HEBER Admitting Unavailable ROSANNA, HEBER Attending Unavailable EASTERWOOD, LEONCIO Primary Care Unavailable ROSANNA, HEBER Consulting Unavailable Leoncio Samano MD Unavailable [phone] Vijay Olucl Unavailable Farooq DOMINGUEZ, [place] Primary Care Provider [phone] Leoncio Samano NP Unavailable Farooq DOMINGUEZ, [place] Primary Care Provider MIMI QUISPE Attending Unavailable LUKE DIXON Attending Unavailable LUKE DIXON Attending Unavailable Leoncio Samano APRN Primary Care Provider Hemalatha Cottrell Attending Provider Unavailable Jayda Chew Attending Provider Unavailjanett Sol MD, Bimal Diaz Attending Provider Leoncio Samano APRN Attending Provider [phone] Allergies Allergy ClassificationReported Allergen(s)Allergy TypeDate of OnsetReaction(s) Facility (1 source)patient allergy list reviewed by nurse or physiciaPropensity to adverse [id number]:[employer] RealtyAP[employer] Other Medications Current Medications MedicationDrug Class(es)DatesSig (Normalized)Sig (Original)citalopram 10 mg oral tablet (20 sources)Serotonin Reuptake InhibitorStart: 01-09-2021 End: 26-35-5065xsov 1 tablet by mouth once dailyCitalopram 10 mg tablet Active 10 MG PO Daily January 07, 2025 10:27am Complies with drug therapy Docusate (1 source)Start: 48-72-3100wsmijbwx sodium (Stool Softener) Active PO Daily January 23, 2025 12:00am Complies with drug therapydonepezil hydrochloride 5 mg oral tablet (20 sources)Start: 85-58-6860rejs 1 tablet by mouth once daily at bedtime Donepezil 5 mg tablet Active 5 MG PO Daily at bedtime 90 January 23, 2025 11:07am Complies with drug therapyStart: 01-09-2021 End: 42-35-1232ssne 1 tablet by mouth at bedtimedonepezil (Aricept) 5 MG tablet Indications: Late onset Alzheimer's disease with behavioral disturbance (CMS/HCC) TAKE 1 TABLET BY MOUTH AT BEDTIME 90 tablet 07/16/2024 ActiveStart: 60-73-4613ybrv 1 tablet by mouth every twenty-four hoursDonepezil HCl 10 MG 1 tablet at bedtime Orally Once a day for 30 day(s) Dec, Active hydroCHLOROthiazide 12.5 mg oral tablet (10 sources)Thiazide DiureticStart: 77-20-7097kvjs 1 tablet by mouth once daily as neededHydrochlorothiazide 12.5 mg tablet Active 12.5 MG PO Daily as needed January 23, 2025 12:00am Complies with drug therapyStart: 12-20-2023 End: 52-51-1531Kyzfliystcbacgydygs 12.5 mg tablet Discontinued 0 .ROUTE .COMPLEX December 20, 2023 9:06am January 23, 2025 1:12pm TAKE 1 TABLET DAILY NEEDED FOR FLUID RETENTIONStart: 36-97-9032Pdxhwswbtaxoyefalev 12.5 mg tablet Active 0 .ROUTE .COMPLEX December 20, 2023 8:06am TAKE 1 TABLET DAILY NEEDED FOR FLUID RETENTIONStart: 10-26-2023 End: 44-11-2462nibr 1 tablet by mouth once daily as needed for edema Hydrochlorothiazide 12.5 mg tablet Discontinued 12.5 MG PO Daily as needed for fluid retention October 26, 2023 12:00am December 20, 2023 9:06am lisinopril 10 mg oral tablet (20 sources)Angiotensin Converting Enzyme InhibitorStart: 61-78-4442outj 1 tablet by mouth once dailyLisinopril 10 mg tablet Active 10 MG PO Daily January 23, 2025 1:12pm Complies with drug therapyStart: 07-23-2024 End: 33-43-5616dzgk 1 tablet by mouth once dailyLisinopril 10 mg tablet Discontinued 0 .ROUTE .COMPLEX July 23, 2024 8:58am January 23, 2025 1 :14pm TAKE 1 TABLET BY MOUTH EVERY DAY FOR 90 DAYSStart: 10-26-2023 End: 48-38-7160rysp 1 tablet by mouth once dailyLisinopril 10 mg tablet Discontinued 10 MG PO Daily October 26, 2023 1:03pm July 23, 2024 8:58amStart: 08-01-2023 End: 81-82-0838hfbs 1 tablet by mouth once dailyLisinopril 10 mg tablet Discontinued 0 .ROUTE .COMPLEX August 01, 2023 12:18pm October 26, 2023 1 :03pm TAKE 1 TABLET BY MOUTH EVERY DAY FOR 90 DAYSStart: 10-15-2021 End: 23-67-2903twqh 1 tablet by mouth once dailyLisinopril 10 mg tablet Discontinued 10 MG PO Daily October 15, 2021 12:00am August 01, 2023 12:19pm memantine hydrochloride 10 mg oral tablet (20 sources)Y-jawewu-T-aspartate Receptor AntagonistStart: 84-77-0673tvqh 1 tablet by mouth twice dailyMemantine 10 mg tablet Active 10 MG PO Twice daily January 23, 2025 12:00am Complies with drug therapyStart: 71-52-3016ticj 1 tablet by mouth in the morningmemantine (Namenda) 10 MG tablet Indications: Late onset Alzheimer's disease with behavioral disturbance (CMS/HCC) Take 1 tablet (10 mg) by mouth in the morning and 1 tablet (10 mg) before bedtime. 180 tablet 1 09/05/2024 ActiveStart: 06-28-2024 End: 79-15-0924beax 2 tablets by mouth in the morningmemantine (Namenda) 5 MG tablet Indications: Late onset Alzheimer's disease with behavioral disturbance (CMS/HCC) Take 2 tablets (10 mg) by mouth in the morning and 2 tablets (10 mg) before bedtime. 180 tablet 1 06/28/2024 09/05/2024 Discontinued (Reorder)Start: 10-15-2021 End: 44-05-5276mmvi 1 tablet by mouth twice dailyMemantine 5 mg tablet Discontinued 5 MG PO Twice daily October 15, 2021 12:00am January 23, 2025 1:1 1pmpredniSONE 20 mg oral tablet (6 sources)Start: 76-04-3590etzi 2 tablets by mouth every twenty-four hours predniSONE 20 MG 2 tablet Orally Once a day for 5 days Jun, Active rivaroxaban 20 mg oral tablet (20 sources)Factor Xa InhibitorStart: 10-15-2021 End: 89-96-7798gshn 1 tablet by mouth once dailyRivaroxaban (Xarelto) 20 mg tablet Active 20 MG PO Daily November 15, 2024 2:45pm Complies withdrug therapytake 2 tablets by mouth once dailyrivaroxaban (Xarelto) 10 MG tablet Take 20 mg by mouth Daily Xrrvne51 hr scopolamine 0.0139 mg/hr transdermal system (7 sources)AnticholinergicStart: 06-19-2024 End: 74-24-3817Uebzawlgxsp Base 1 mg over 3 days patch 3 day Active 1 PATCH TRANSDERML Every 72 hours January 12:00am Complies with drug therapy Start: 06-34-1747uorhodrpqeo (Transderm-Scop) 1 mg/72 hr patch 72 hour patch APPLY TOPICALLY AND REPLACE EVERY 3 DAYS 02/02/2024 ActiveScopolamine Base 1 mg over 3 days patch 3 day (1 source)Start: 57-76-4124Vwgxaxelvbx Base 1 mg over 3 days patch 3 day Active 1 PATCH TRANSDERML Q3D June 19, 2024 12:00amvitamin b12 0.1 mg oral tablet (6 sources)Vitamin F24mdua 1 tablet by mouth once dailycyanocobalamin (Vitamin B-12) 100 MCG tablet Take 100 mcg by mouth Daily Active Completed/Discontinued Medications MedicationDrug Class(es)DatesSig (Normalized)Sig (Original)cetirizine hydrochloride 10 mg oral capsule (4 sources)Histamine-1 Receptor AntagonistStart: 07-06-2023 End: 81-35-1956yhzs 1 capsule by mouth once daily as neededCetirizine (All Day Allergy (Cetirizine)) 10 mg capsule Discontinued 10 MG PO Daily as needed July 06, 2023 12:00am January 23, 2025 1:13pmergocalciferol 1.25 mg oral capsule (20 sources)Provitamin D2 CompoundStart: 10-15-2021 End: 94-01-7666bqlu 1 capsule by mouth every weekErgocalciferol (Vitamin D2) (Vitamin D2) 1,250 mcg (50,000 unit) capsule Discontinued 1250 MCG PO every week October 15, 2021 12:00am July 06, 2023 2:18pm TAKES ON FRIDAYStart: 10-02-2020 take 1 capsule by mouth every weekErgocalciferol 1.25 MG (57880 UT) 1 capsule Orally weekly for 30 day(s) Sep, ActiveguaiFENesin (14 sources)Start: 10-26-2023 End: 30-89-9079apofottstnr (Mucus Relief) Discontinued PO as needed October 26, 2023 12:00am June 19, 2024 3:57pmStart: 10-26-2023 End: 08-53-3062ybwhwnngatv (Mucus Relief) Discontinued PO as needed October 25, 2023 11:00pm June 19, 2024 2:57pmStart: 92-31-4997kczcmydnzhz (Mucus Relief) Active PO October 26, 2023 12:00amStart: 07-06-2023 End: 50-61-2217zyrq 1 tablet by mouth twice dailyGuaifenesin 400 mg tablet Active 400 MG PO Twice daily January 23, 2025 1:13pm Complies with drug therapy Start: 76-00-6912mscr 1 tablet by mouth every twenty-four hoursguaiFENesin ER 600 MG 1 tablet as needed Orally daily for 30 days Jun, Active Nirmatrelvir-Ritonavir (4 sources)Start: 10-18-2021 End: 80-08-5365ukwt 1 tablet by mouth twice dailyNirmatrelvir-Ritonavir (Paxlovid (Eua)) 150-100 mg Tablet Discontinued 1 EACH PO Twice daily 4 2 October 17, 2021 11:00pm July 06, 2023 1:18pmStart: 10-18-2021 End: 52-11-7937ofxv 1 tablet by mouth twice dailyNirmatrelvir-Ritonavir (Paxlovid (Eua)) 150-100 mg Tablet Discontinued 1 EACH PO Twice daily 4 2 October 18, 2021 12:00am July 06, 2023 2:18pm Problems Active Problems Problem ClassificationProblemDateDocumented DateEpisodic/ChronicCancer of cervix (4 sources)Malignant neoplasm of exocervix; Translations: [Malignant neoplasm of exocervix]Onset: 98-32-0165JxgdgpoGdvscc of cervix (8 sources)History of malignant neoplasm of cervix; Translations: [Personal history of malignant neoplasm of cervix uteri]Onset: EpisodicCancer of uterus (4 sources)History of malignant neoplasm of female genital organ; Translations: [Personal history of malignantneoplasm of other parts of uterus]Onset: 91-61-3144XasdddtkZanvwjh dysrhythmias (10 sources)Paroxysmal atrial fibrillation; Translations: [Paroxysmal atrial fibrillation]Onset: 899652-64-6155FksiufuBvtnqrx kidney disease (20 sources)Chronic kidney disease stage 3B ; Translations: [Stage 3b chronic kidney disease]Onset: 208706-15-2804AdjouehNhdslcz kidney disease (20 sources)Chronic kidney disease; Translations: [Chronic kidney disease, stage 3 unspecified]Onset: 01-22-2021 Resolved: 59-98-6761Upzbechf, dementia, and amnestic and other cognitive disorders (20 sources)Alzheimer's disease; Translations: [Alzheimer's disease, unspecified]Onset: 67-56-7755HwalmyfMcdqszdfh hypertension (20 sources)Benign hypertension; Translations: [Essential (primary) hypertension]Onset: 01-04-2014 Resolved: 06-58-4451DsajpdzFxjqjafsmctaq congenital anomalies (20 sources)Multiple congenital cysts of kidney; Translations: [Congenital renal cyst, unspecified]Onset: 07-30-2021 Resolved: 69-15-1882WvqkeiwJwuajxxjmgwju symptoms and ill-defined conditions (20 sources)Incontinence without sensory awareness; Translations: [Incontinence without sensory awareness]Onset: 01-22-2021 Resolved: 30-01-6870RywjhryWoctxiaadhzj with complications and secondary hypertension (20 sources)Chronic kidney disease due to hypertension; Translations: [Hypertensive chronic kidney disease withstage 1 through stage 4 chronic kidney disease, or unspecified chronic kidney disease]Onset: 11-11-2015 Resolved: 74-76-5345VfkzsebKuztkqo and fatigue (20 sources)Asthenia; Translations: [Weakness]Onset: 01-04-2014 Resolved: 32-94-8405FtccarqkAyfulkr on above:Problem List clean-up per request of Phys. EHR CmteMenopausal disorders (2 sources)Primary ovarian failure; Translations: [Other primary ovarian failure]Onset: 27-19-7901YnqnolsGruz disorders (5 sources)Disturbance in mood; Translations: [Emotional lability]02-27-2024 EpisodicNeoplasms of unspecified nature or uncertain behavior (15 sources)Skin lesion; Translations: [Neoplasm of unspecified behavior of bone, soft tissue, and skin]52-67-0205JlhjnoyvMqdzfwyfufj deficiencies (20 sources)Vitamin D deficiency; Translations: [Vitamin D deficiency, unspecified]Onset: 01-22-2021 Resolved: 95-41-6014GsyuhskPkdojfdagcislz (5 sources)Localized, primary osteoarthritis of the pelvic region and thigh; Translations: [Unilateral primaryosteoarthritis, right hip]Onset: 08-19-2017 71-78-0505WlyskyySmeevuzuhgsm (4 sources)Osteoporosis; Translations: [Age-related osteoporosis without current pathological fracture]82-05-5219EykunkdDocua circulatory disease (20 sources)Pulmonary congestion ; Translations: [Other specified symptoms and signs involving the circulatory and respiratory systems]46-50-4469YrfeswpwPskeh congenital anomalies (2 sources)Congenital spondylolysis of lumbosacral region; Translations: [Congenital spondylolysis, lumbosacral region]Onset: 35-06-4496NkobudkUehei diseases of kidney and ureters (20 sources)Secondary hyperparathyroidism; Translations: [Secondary hyperparathyroidism of renal origin]94-05-0157ZuvwqwdQazzn diseases of kidney and ureters (20 sources)Renal mass; Translations: [Other specified disorders of kidney and ureter]00-44-2076IqtprleVbqsd diseases of kidney and ureters (6 sources)Other specified disorders of kidney and ureter; Translations: [Kidney mass N28.89]Onset: 01-22-2021 Resolved: 60-34-5876PveiimeCcnkm diseases of kidney and ureters (3 sources)Secondary hyperparathyroidism of renal origin; Translations: [Secondary hyperparathyroidism N25.81]Onset: 01-22-2021 Resolved: 34-95-9372YkjrtftGlzsh diseases of kidney and ureters (3 sources)Cyst of kidney; Translations: [Cyst of kidney, acquired]10-25-2023 EpisodicOther diseases of veins and lymphatics (5 sources)Peripheral venous insufficiency; Translations: [Venous insufficiency (chronic) (peripheral)]51-33-7766NfwliobeFnrxt gastrointestinal disorders (20 sources)Complete fecal incontinence; Translations: [Full incontinence of feces]71-89-3839XykqqssgYwbjp gastrointestinal disorders (20 sources)Dysphagia; Translations: [Dysphagia, unspecified]04-56-4774Herweixs Other gastrointestinal disorders (2 sources)Dysphagia, unspecifiedOnset: 10-20-2021 Resolved: 17-12-7620BzzgvdvyAnakm lower respiratory disease (20 sources)Wheezing; Translations: [Wheezing]EpisodicOther lower respiratory disease (2 sources)WheezingOnset: 10-15-2021 Resolved: 05-54-1653FetsxruwLtpni lower respiratory disease (17 sources)Cough; Translations: [Subacute cough]EpisodicOther lower respiratory disease (2 sources)Dyspnea; Translations: [Dyspnea, unspecified]69-16-5863TsqlxeeyWmtsa nervous system disorders (2 sources)Disease of spinal cord, unspecified; Translations: [Disease of spinal cord, unspecified]Onset: 76-96-6038MvaczevYihjf nervous system disorders (15 sources)Difficulty walking; Translations: [Difficulty in walking, not elsewhere classified]34-69-9308AsxpzkwXlgjd nervous system disorders (11 sources)Unable to walk; Translations: [Difficulty in walking, not elsewhere classified]89-15-8344JsrvrquNhapm nervous system disorders (1 source)Difficulty in walking, not elsewhere classifiedChronicOther nervous system disorders (2 sources)Unspecified abnormalities of gait and mobility; Translations: [Unspecified abnormalities of gait and mobility]Onset: 04-11-5064DywinvdvKlijr nervous system disorders (10 sources)Abnormal gait; Translations: [Unsteadiness on feet]Onset: 09-30-2023 20-55-7501LvqktfxiLeuvr nutritional; endocrine; and metabolic disorders (8 sources)Hypomagnesemia; Translations: [Hypomagnesemia]ChronicOther nutritional; endocrine; and metabolic disorders (4 sources)Body mass index 40+ - severely obese; Translations: [Body mass index (BMI) 45.0-49.9, adult]Onset: 08-04-1249JkxzijdOxrvj nutritional; endocrine; and metabolic disorders (2 sources)Obesity; Translations: [Obesity, unspecified]ChronicOther nutritional; endocrine; and metabolic disorders (2 sources)Morbid obesity; Translations: [Morbid (severe) obesity due to excess calories]Onset: 93-26-1846WopdxpjRqwdt nutritional; endocrine; and metabolic disorders (3 sources)Obesity caused by energy imbalance; Translations: [Morbid (severe) obesity due to excess calories]Onset: 754641-77-9536RrvylbiUsqop upper respiratory disease (3 sources)Allergic rhinitis; Translations: [Allergic rhinitis, unspecified] 80-15-6836XxeahquGwpfxpnbb; thrombophlebitis and thromboembolism (5 sources)Chronic embolism and thrombosis of left femoral vein; Translations: [Chronic embolism and thrombosis of left femoral vein]71-10-7114Lgclual Phlebitis; thrombophlebitis and thromboembolism (20 sources)History of venous thrombosis; Translations: [Personal history of other venous thrombosis and embolism]Onset: 09-03-2021 Resolved: 74-13-2102RioforhjQiahvgvt codes; unclassified (6 sources)Obstructive sleep apnea syndrome; Translations: [Obstructive sleep apnea (adult) (pediatric)]Onset: 674076-52-5836KeqsijfVkujfifl codes; unclassified (20 sources)Memory impairment; Translations: [Other amnesia]EpisodicResidual codes; unclassified (6 sources)Localized edema; Translations: [LOCALIZED EDEMA]Onset: 09-03-2021 Resolved: 32-92-4765GkljdoqgKnykuobp codes; unclassified (20 sources)Disturbance of consciousness; Translations: [Transient alteration of awareness]EpisodicResidual codes; unclassified (8 sources)Localized edema; Translations: [Localized edema]EpisodicResidual codes; unclassified (2 sources)Body fluid retention; Translations: [Edema, unspecified]10-26-2023 EpisodicSpondylosis; intervertebral disc disorders; other back problems (12 sources)Lumbosacral spondylosis without myelopathy; Translations: [Spondylosis without myelopathy or radiculopathy, lumbar region]Onset: 239339-02-8596NbebzscYiygkwa disorders (20 sources)Thyroid dysfunction; Translations: [Disorder of thyroid, unspecified]58-45-4189RqulsqvyNzganntrzohq (1 source)Unknown / UNK(Unknown)Onset: 87-45-9323Rovyeecqrcmx (1 source)F03.90 - Unspecified dementia without behavioral disturbance; Translations: [F03.90 - Unspecified dementia without behavioral disturbance] Onset: 06-39-9667Xmljwnutzhnb (1 source)CHRN KIDNEY DISEASE STG 3 UNSP; Translations: [CHRN KIDNEY DISEASE STG 3 UNSP]Onset: 27-51-0228Kndux infection (4 sources)Disease caused by 2019-nCoV; Translations: [COVID-19]03-30-2023 EpisodicComment on above:Problem List clean-up per request of Phys. EHR Cmte Past or Other Problems Problem ClassificationProblemDateDocumented DateEpisodic/ChronicGenitourinary symptoms and ill-defined conditions (6 sources)Urgent desire to urinate; Translations: [Urgency of urination]Onset: 90-80-4854SzazygalOzpfo aftercare (1 source)Encounter for follow-up examination after completed treatment for conditions other than malignant neoplasmOnset: 10-20-2021 Resolved: 80-18-3685RlxftsydPbunf circulatory disease (1 source)Other specified symptoms and signs involving the circulatory and respiratory systemsOnset: 10-20-2021 Resolved: 43-91-1704NavntqwpYsqah connective tissue disease (2 sources)Pain in right lower limb; Translations: [Pain in right leg]Onset: 24-26-3912QhqgzzozOdejk connective tissue disease (2 sources)Disorder of musculoskeletal system; Translations: [Other symptoms and signs involving the musculoskeletal system]Onset: 19-10-6261YfztvpigIxdgc injuries and conditions due to external causes (2 sources)History of fall; Translations: [History of falling]Onset: 05-17-2018 EpisodicOther nervous system disorders (2 sources)Paresthesia; Translations: [Paresthesia of skin]Onset: 03-24-2018 EpisodicOther upper respiratory disease (2 sources)Bleeding from nose; Translations: [Epistaxis]Onset: 11-11-2015 EpisodicResidual codes; unclassified (1 source)Transient alteration of awarenessOnset: 10-15-2021 Resolved: 83-88-6328RjvohogoZcipaxokg and history of mental health and substance abuse codes (2 sources)History of tobacco use; Translations: [Personal history of tobacco use, presenting hazards to health]Onset: 27-60-2588IdgtvtzoQnmzxrkbmre; intervertebral disc disorders; other back problems (4 sources)Low back pain; Translations: [Lumbago]Onset: 95-17-8885Guohjzpk Sprains and strains (2 sources)Neck sprain; Translations: [Strain of muscle, fascia and tendon at neck level, initial encounter]Onset: 29-87-9621KpbzbavoFqrsf infection (20 sources)COVID-19; Translations: [Disease caused by 2019-nCoV]Onset: 10-15-2021 Resolved: 10-20-2021 Results Test NameValueInterpretationReference RangeFacilityLaboratory - Chemistry and Chemistry - challengeOrdered By: Bimal Sol on 30-63-7614Zahsghk [Moles/Vol] 2.9 mmol/LCritically high0.4-2.0[facility] HospitalComment on above:RESULTS CALLED TO CASEY LARES RN @BY Rosi Wyatt 0057 Basophils/100 WBC Manual cnt (Bld)Ordered By: Bimal Sol on 01-15-2025 Basophils/100 WBC (Bld)0.0 %Low0.2-2.0[facility] Eosinophils/100 WBC Manual cnt (Bld)Ordered By: Bimal Sol on 01-15-2025 Eosinophils/100 WBC (Bld)2.0 %0.9-7.0[facility] Erythrocyte distribution width Auto (RBC) [Ratio]Ordered By: Bimal Sol on 88-23-4382Ckosnycrtyd distribution width (RBC) [Ratio]14.4 %11.0-15.0[facility] HospitalFibrin D-dimer [Presence] in Platelet poor plasma by Latex agglutinationOrdered By: Bimal Sol on 34-14-2837Atafnx D-dimer LA Ql (PPP)3.15 mg/L FEUCritically high<=0.59[facility] HospitalComment on above:RESULTS CALLED TO THANIA LEWIS RNIncreases in D-Dimer concentration observed withthromboembolic events can be variable due to localization,size, and age of the thrombus. Therefore, a thromboembolicevent cannot be diagnosed with certainty on the basis of thereference range. D-Dimers may also be elevated for a varietyof disorders including advanced age, , coronarydisease, cancer, liver disease, infection, inflammation,hematoma, DIC, trauma, post- surgery, diabetes, thrombolyticor anticoagulant therapy, stress, and generalizedhospitalization.Globulin Calc (S) [Mass/Vol]Ordered By: Bimal Sol on 72-64-6680Badxaklp (S) [Mass/Vol]3.8 g/dLMiami Valley Hospital Glomerular filtration rate (GFR) estimation in non- AmericanOrdered By: Bimal Sol on 57-49-2129IEP/1.73 sq M.predicted among non-blacks MDRD (S/P/Bld) [Vol rate/Area]45 mL/min/{1.73_m2}Low>=60 mL/min/1.73m 2FAdena Pike Medical CenterHematocrit Auto (Bld) [Volume fraction]Ordered By: Bimal Sol on 65-02-6144Qdhzglavqz (Bld) [Volume fraction]44.1 %36.0-48.0[facility] HospitalHemoglobin [Mass/volume] in BloodOrdered By: Bimal Sol on 42-02-0603Prfejrgrlt (Bld) [Mass/Vol]14.6 g/dL12.0-16.0[facility] HospitalLaboratory - Chemistry and Chemistry - challengeOrdered By: Bimal Sol on 54-53-3478Blahmcefv Ql (U)NegativeNEGATIVEMiami Valley HospitalGlucose (U) [Mass/Vol]NegativeNEGATIVEMiami Valley Hospital Ketones Ql (U)TRACE mg/dLAbnormalNEGATIVEMiami Valley HospitalpH (U) 5.5 [pH]5.0-9.0[facility] Medical Centerpecific gravity (U) [Rel density]>=1.252Uctuyahb8.005-1.025[facility] HospitalUrobilinogen Qn (U)0.2 {Tree'U}/dL0.2-1.0[facility] HospitalAlbumin [Mass/Vol]3.2 g/dLLow3.4-5.0[facility] HospitalALP [Catalytic activity/Vol]72 U/O76-930EfzzwnxphMiami Valley HospitalALT [Catalytic activity/Vol]20 U/S21-65CrsywexxmMiami Valley HospitalAST [Catalytic activity/Vol]20 U/D98-37QutiealohMiami Valley HospitalBilirubin [Mass/Vol]1.0 mg/dL0.2-1.0[facility] HospitalCalcium [Mass/Vol]9.3 mg/dL 8.5-10.1FAdena Pike Medical CenterChloride [Moles/Vol]107 mmol/L98-107 [facility] HospitalCO2 [Moles/Vol]21.4 mmol/L21.0-32.0[facility] HospitalCreatinine [Mass/Vol]1.15 mg/dLHigh0.55-1.02[facility] HospitalGFR/1.73 sq M.predicted MDRD (S/P/Bld) [Vol rate/Area]55 mL/min/{1.73_m2}Low>=60 mL/min/1.73m 2FAdena Pike Medical CenterGlucose [Mass/Vol]176 mg/gDMcrj65-962NuhkcreeuMiami Valley HospitalLactate [Moles/Vol]2.6 mmol/LCritically high0.4-2.0[facility] Comment on above:RESULTS CALLED TO THANIA LEWIS, RNPotassium [Moles/Vol]3.8 mmol/L3.5-5.1FAdena Pike Medical CenterProtein [Mass/Vol]7.0 g/dL6.4-8.2 [facility] Centerodium [Moles/Vol]142 mmol/M615-947KtsemgvrxMiami Valley HospitalUrea nitrogen [Mass/Vol]11.0 mg/dL7.0-18.0[facility] HospitalUrea nitrogen/Creatinine [Mass ratio]9.6 mg/mgMiami Valley HospitalLaboratory - Hematology and Cell countsOrdered By: Bimal Sol on 50-70-6060Rqzqylghsuf/100 WBC (Bld)4.0 %Low20.5-60.0[facility] HospitalMonocytes/100 WBC (Bld)0.0 %Low1.7-12.0[facility] HospitalLaboratory - Specimen informationOrdered By: Bimal Sol on 01-15-2025 Appearance (U)CLEARCLEARFAdena Pike Medical CenterColor (U)YELLOWYELLOW [facility] HospitalLaboratory - UrinalysisOrdered By: Bimal Sol on 94-79-5799Cvsynrk casts LM Ql (Urine sed)RAREMiami Valley HospitalLeukocyte esterase Test strip Ql (U)NegativeNEGATIVEMiami Valley HospitalMucus Ql (Urine sed)TRACEAbnormalNONE [facility] Medical CenterNitrite Ql (U)NegativeNEGATIVEMi[facility] Hospital Protein Ql (U)NegativeNEG/TRACEMiami Valley HospitalLeukocytes [#/volume] corrected for nucleated erythrocytes in Blood by Automated coun Ordered By: Bimal Sol on 14-85-9689WWC corrected for nucl RBC Auto (Bld) [#/Vol]10.1 10 3/uL4.0-11.0[facility] Auto (RBC) [Entitic mass]Ordered By: Bimal Sol on 30-77-1768KFQ (RBC) [Entitic mass]29.6 pg26.7-34.0[facility] HospitalHC Auto (RBC) [Mass/Vol]Ordered By: Bimal Sol on 08-79-5401KIQU (RBC) [Mass/Vol]33.1 g/dL29.9-35.2FSt. Mary's Medical Center, Ironton CampusV Auto (RBC) [Entitic vol]Ordered By: Bimal Sol on 12-97-8556CAJ (RBC) [Entitic vol]89.5 fL81.0-99.0[facility] HospitalNo Panel InformationOrdered By: Bimal Sol on 19-16-8781Vvdjl Bacteria TRACE #/HPFAbnormalNONE [facility] Medical CenterUrine Calcium Oxalate CrystalsFEWMiami Valley HospitalUrine Occult BloodNegative NEGATIVEMiami Valley HospitalUrine Other CastsSEEN #/LPFAbnormalNONE [facility] CenterUrine Other CrystalsSeen #/HPFAbnormalNone [facility] CenterUrine RBC2-5 #/HPFAbnormal0-2FAdena Pike Medical CenterUrine Squamous Epithelial CellsFEW #/LPFAbnormalNONE/RARE [facility] HospitalUrine WBC0-2 #/HPFAbnormalNONE [facility] Medical CenterAbsolute Basophils (Manual)0.00 10 3/uL0.00-0.10[facility] HospitalEosinophils # (Manual)0.20 10 3/uL0.00-0.70[facility] HospitalLymphocytes # (Manual)0.40 10 3/uLLow1.20-3.80[facility] HospitalMonocytes # (Manual)0.00 10 3/uLLow0.30-0.80[facility] Medical Centeregmented Neutrophils # (Manual)9.49 10 3/uLHigh1.4-6.5 [facility] HospitalTroponin I High Mahszbkpdrc22.4 pg/mL4.0-51.3 [facility] HospitalComment on above:CUT-OFF POINTS HAVE BEEN ESTABLISHED BASED ON THE FOURTHUNIVERSAL DEFINITION OF MYOCARDIAL INFARCTION. THE UPPERREFERENCE LIMIT (URL) OF TROPONIN, DEFINED THE 99THPERCENTILE OF cTnI DISTRIBUTION IN A REFERENCE POPULATION,HAS BEEN CONFIRMED THE DECISION THRESHOLD FOR MIDIAGNOSIS.99TH PERCENTILE = 51.4 PG/MLNOTE: HIGH-SENSITIVITY TROPONIN ASSAY IS NOT INTENDED TO BEUSED IN ISOLATION BUT SHOULD BE INTERPRETED IN CONJUNCTIONWITH OTHER DIAGNOSTIC AND CLINICAL INFORMATION.Platelet mean volume Auto (Bld) [Entitic vol]Ordered By: Bimal Sol on 40-48-4844Zbpghntx mean volume (Bld) [Entitic vol]9.4 fLLow9.5-13.5FAdena Pike Medical CenterPlatelets Auto (Bld) [#/Vol]Ordered By: Bimal Sol on 01-15-2025 Platelets (Bld) [#/Vol]229 10 3/vL124-504AxlvcqavcMiami Valley HospitalRBC Auto (Bld) [#/Vol]Ordered By: Bimal Sol on 40-85-4475XGD (Bld) [#/Vol]4.93 10 6/uL4.20-5.40[facility] Medical Centeregmented neutrophils/100 WBC Manual cnt (Bld)Ordered By: Bimal Sol on 87-76-6269Ezezlooai neutrophils/100 WBC (Bld)94.0 %High43.0-75.0[facility] Medical Centererum or plasma albumin/globulin mass ratioOrdered By: Bimal Sol on 01-15-2025 Albumin/Globulin [Mass ratio]0.8 {ratio}[facility] Medical Centererum or plasma anion gap determinationOrdered By: Bimal Sol on 41-75-8170Nascr gap [Moles/Vol]17.4 mmol/LFAdena Pike Medical CenterPTH INTACTon 06-22-2022 PTH, Gicqkg07 pg/mLCritically jfwe92-82Bhr [facility] HospitalComment on above: Performed By: #### PTHINT #### [facility] [address] [place] [address] Dr. Brenna ManzanaresHEMOGRAM AND PLATELon 96-06-7671Ikgvdrjryq (Bld) [Volume fraction]45.0 %Qbrmkz16.0-48.0The [facility] HospitalComment on above:Performed By: #### MG, RENAL #### [facility] [address] [place] [address] Dr. Brenna ManzanaresHemoglobin (Bld) [Mass/Vol]14.9 g/gQEfwmia29.0-16.0The [facility] HospitalComment on above:Performed By: #### MG, RENAL #### [facility] [address] [place] [address] Dr. Brenna Dawson (RBC) [Entitic mass]28.6 yfKzwjil26.7-34.0The [facility] HospitalComment on above:Performed By: #### MG, RENAL #### [facility] [address] [place] [address] Dr. Brenna Dawson (RBC) [Mass/Vol]33.1 g/kTFsetkk35.9-35.2The [facility] HospitalComment on above:Performed By: #### MG, RENAL #### [facility] [address] [place] [address] Dr. Brenna Dawson (RBC) [Entitic vol]86.4 wYMqkwei10.0-99.0The [facility] HospitalComment on above:Performed By: #### MG, RENAL #### [facility] [address] [place] [address] Dr. Brenna ManzanaresPLT205 103/yuNxgnvt340-192Yth [facility] HospitalComment on above: Performed By: #### MG, RENAL #### [facility] [address] [place] [address] Dr. Brenna ManzanaresRBC5.21 106/ulNormal4.20-5.40The [facility] HospitalComment on above:Performed By: #### MG, RENAL #### [facility] [address] [place] [address] Dr. Brenna ManzanaresWBC8.1 103/ulNormal4.0-11.0The [facility] HospitalComment on above: Performed By: #### MG, RENAL #### [facility] [address] [place] [address] Dr. Brenna ManzanaresMAGNESIUMon 84-73-3252Usrsgladz [Mass/Vol]1.6 mg/dLCritically low 1.8-2.4The [facility] HospitalComment on above:Performed By: #### URIC, RENAL, MG #### [facility] [address] [place] [address] Dr. Brenna ManzanaresRENAL FUNCTION PANELon 17-70-6542Hzbhbhb [Mass/Vol]3.6 g/dLNormal 3.4-5.0The [facility] HospitalComment on above:Performed By: #### URIC, RENAL, MG #### [facility] [address] [place] [address] Dr. Brenna ManzanaresCalcium [Mass/Vol]9.3 mg/dLNormal8.5-10.1The [facility] Comment on above:Performed By: #### URIC, RENAL, MG #### [facility] [address] [place] [address] Dr. Brenna ManzanaresChloride [Moles/Vol]106 mmol/LKxwajk50-145Dpl [facility] Comment on above:Performed By: #### URIC, RENAL, MG #### [facility] [address] [place] [address] Dr. Brenna ManzanaresCO2 [Moles/Vol]28.4 mmol/NRaindj69.0-32.0The [facility] Comment on above:Performed By: #### URIC, RENAL, MG #### [facility] [address] [place] [address] Dr. Brenna ManzanaresCreatinine [Mass/Vol]1.05 mg/dLCritically high0.55-1.02The [facility] HospitalComment on above:Performed By: #### URIC, RENAL, MG #### [facility] [address] [place] [address] Dr. Brenna De La PazGFR-AF UGANDAN>60Normal>=60The [facility]Healthment on above:Performed By: #### URIC, RENAL, MG #### [facility] [address] [place] [address] Dr. Brenna De La PazGFR-NON AF LPGOZCON61 mL/min/1.22v2Uwpcrirwso low>=60The [facility] HospitalComment on above:Performed By: #### URIC, RENAL, MG #### [facility] [address] [place] [address] Dr. Brenna ManzanaresGlucose [Mass/Vol]97 mg/tPLaylnx00-466HrkUc Health Comment on above:Performed By: #### URIC, RENAL, MG #### [facility] [address] [place] [address] Dr. Brenna ManzanaresPhosphate [Mass/Vol]2.8 mg/dLNormal2.6-4.7The [facility] Comment on above:Performed By: #### URIC, RENAL, MG #### [facility] [address] [place] [address] Dr. Brenna ManzanaresPotassium [Moles/Vol]4.3 mmol/LNormal3.5-5.1[facility] Comment on above:Performed By: #### URIC, RENAL, MG #### [facility] [address] [place] [address] Dr. Brenna ManzanaresSodium [Moles/Vol]143 mmol/AOyacpd832-296DxlUc Health Comment on above:Performed By: #### URIC, RENAL, MG #### [facility] [address] [place] [address] Dr. Brenna ManzanaresUrea nitrogen [Mass/Vol]19.0 mg/dLCritically high7.0-18.0[facility] Centerment on above:Performed By: #### URIC, RENAL, MG #### [facility] [address] [place] [address] Dr. Brenna ManzanaresURIC ACID SERUMon 50-94-7115Hcpdy [Mass/Vol]5.1 mg/dLNormal 2.6-6.0Uc HealthComment on above:Performed By: #### URIC, RENAL, MG #### [facility] [address] [place] [address] Dr. Brenna ManzanaresVITAMIN D 25 OHon 22-82-3576LLW D 25-OH34.7 ng/mLNormalUc HealthComment on above:Performed By: #### VITAD #### [facility] [address] [place] [address] Dr. Brenna Medina RANGESSEE [facility] Barber[facility] CampusComment on above: Result Comment: <20 ng/mL Vit D deficient 20 - <30 ng/mL Vit D insufficient 30 - 100 ng/mL Vit D sufficient >100 ng/mL Potential ToxicityPerformed By: #### VITAD #### [facility] [address] [place] [address] Dr. Brenna Ochoa RANDOM W/MICROSCOPICon 26-68-9353OJQYZAPKZHVLKWpbnbthzORMD SEENUc HealthComment on above:Performed By: #### UAMIC #### [facility] [address] [place] [address] Dr. Brenna Celestin Ql (U)NegativeNormalNEGATIVEUc Health Comment on above:Performed By: #### UAMIC #### [facility] [address] [place] [address] Dr. Brenna Deleon SEENNormalNONE SEENUc HealthComment on above:Performed By: #### UAMIC #### [facility] [address] [place] [address] Dr. Brenna Garcia (U)CLEARNormalCLEARUc HealthComment on above: Performed By: #### UAMIC #### [facility] [address] [place] [address] Dr. Brenna Mcdonald (U)LT. YELLOWNormalYWyandot Memorial HospitalComment on above:Performed By: #### UAMIC #### [facility] [address] [address] [address] Brenna ManzanaresCrystals LM Nom (Urine sed)NONE SEENNormalNONE SEENUc HealthComment on above:Performed By: #### UAMIC #### [facility] [address] [address] [address] Ceja ChangEpithelial cells LM Ql (Urine sed)FEWAbnormalNONE SEEN /RAREUc HealthComment on above:Performed By: #### UAMIC #### [facility] [address] [address] [address] Brenna ManaznaresGlucose Ql (U)NegativeNormalNEGATIVEUc HealthComment on above:Performed By: #### UAMIC #### [facility] [address] [place] [address] Dr. Brenna ManzanaresHemoglobin Ql (U)NegativeNormalNEGATIVEUniversity [facility]als [facility] on above:Performed By: #### UAMIC #### [facility] [address] [place] [address] Dr. Brenna ManzanaresKetones Ql (U)NegativeNormalNEGATIVEUc HealthComment on above:Performed By: #### UAMIC #### [facility] [address] [place] [address] Dr. Brenna ManzanaresLEUKOCYTESNegativeNormalNEGATIVEUc HealthComascension [facility] on above:Performed By: #### UAMIC #### [facility] [address] [place] [address] Dr. Brenna ManzanaresMUCOUSNONE SEENNormalNONE SEENUc HealthComment on above:Performed By: #### UAMIC #### [facility] [address] [place] [address] Dr. Brenna ManzanaresNitrite Ql (U)NegativeNormalNEGATIVEUc HealthComment on above:Performed By: #### UAMIC #### [facility] [address] [place] [address] Dr. Brenna ManzanarespH (U)7.0 [pH]Normal5-9The [facility] HospitalComment on above: Performed By: #### UAMIC #### [facility] [address] [address] [address] Brenna ManzanaresPulevRAP3-3Nulenw4-8Wyr [facility] on above:Performed By: #### UAMIC #### [facility] [address] [address] [address] Brenna ManzanaresSPEC GRAVITY1.873Vwemdl4.005-<=1.025The [facility] HospitalComment on above:Performed By: #### UAMIC #### [facility] [address] [place] [address] Dr. Brenna Ochoa PROTEINNegativeNormalNEGATIVE/ TRACEThe [facility] Comment on above:Performed By: #### UAMIC #### [facility] [address] [place] [address] Dr. Brenna Toscano Qn (U)4 {Tree'U}/dLAbnormal0.2 - 1.0The [facility] HospitalComment on above:Performed By: #### UAMIC #### [facility] [address] [place] [address] Dr. Brenna ManzanaresWBC0-2AbnormalNONE SEENUc HealthComment on above: Performed By: #### UAMIC #### [facility] [address] [place] [address] Dr. Brenna Patel T PROTEIN CREAT RATIOon 99-50-3226Gxcjdtu (U) [Mass/Vol] 15.6 mg/dLCritically high<=12.0The [facility] on above:Performed By: #### URTPCR #### [facility] [address] [place] [address] Dr. Brenna Nguyễn PROT CREAT RAT0.13NormalThe [facility] HospitalComment on above: Performed By: #### URTPCR #### [facility] [address] [place] [address] Dr. Brenna Patel DLQEA528.24 mg/aUKiqtvr03.00-300.00[facility] Comment on above:Performed By: #### URTPCR #### [facility] [address] [place], [place] [address] Dr. Brenna Shaffer Metabolic Panelon 47-50-3637Ueaegrm [Mass/Vol]8.7 mg/dL Normal8.2-10.2FAdena Pike Medical CenterComment on above:Performed By: #### BMP #### [facility] [address] [place] [address] USAChloride [Moles/Vol]101 mmol/GQwjcvj64-114DhekefqrqMi[facility] Valley HospitalComment on above:Performed By: #### BMP #### [facility] [address] [place] [address] USACO2 [Moles/Vol]29.7 mmol/OYmavue80.0-30.0[facility] HospitalComment on above:Performed By: #### BMP #### [facility] [address] [place] [address] USACreatinine [Mass/Vol]1.26 mg/dLHigh0.44-1.03[facility] HospitalComment on above:Performed By: #### BMP #### [facility] [address] [place] [address] USACreatinine Clr Calc Gkdtdxfa08.31NoHenry County HospitalComment on above:Result Comment: PERFORMED BY: [place] [address] PATHOLOGIST [employer] ARCHITECT ANNETTE OLMEDO M.D.Performed By: #### BMP #### [facility] [address] [place] [address] USAEstimated GFR ( Jiqytfx39XxpwrsQhekibeigMetroHealth Parma Medical CenterComment on above:Result Comment: GFR estimated reference range: According to KDOQI guidelines, <60 ml/min/1.73m2 is sufficient to diagnose a patient with chronic kidney disease.Performed By: #### BMP #### [facility] [address] [place] [address] USAEstimated GFR (Non- Zz50EydlppRzlmvmgqwMetroHealth Parma Medical CenterComment on above:Performed By: #### BMP #### [facility] [address] [place] [address] USAGlucose [Mass/Vol]81 mg/hLGlfmhb10-133LjfchwggpMi[facility] Valley HospitalComment on above:Result Comment: Random Glucose Reference Range is dependent on time and content of last meal. Glucose of more than 200 mg/dL in a nonstressed, ambulatory subject supports the diagnosis of Diabetes Mellitus. ADA recommended reference rangePerformed By: #### BMP #### [facility] [address] [place] [address] USAPotassium [Moles/Vol]3.9 mmol/LNormal3.5-5.1FAdena Pike Medical CenterComment on above:Performed By: #### BMP #### [facility] [address] [place] [address] USASodium [Moles/Vol]139 mmol/THqdktd139-711AzfyoeoxgMiami Valley HospitalComment on above:Performed By: #### BMP #### [facility] [address] [place] [address] USAUrea nitrogen [Mass/Vol]28 mg/dLHigh9-23[facility] HospitalComment on above:Performed By: #### BMP #### [facility] [address] [place] [address] USAB-Type Natriuretic Peptideon 83-13-0571Iaiyqqsbcjt peptide B (Bld) [Mass/Vol]109.0 pg/mLHigh5-100[facility] HospitalComment on above:Result Comment: PERFORMED BY: [place] [address] PATHOLOGIST [employer] ARCHIT[employer] ANNETTE OLMEDO M.D.Performed By: #### GLULS #### Point of Care testing ,COVID-19 Antigenon 62-21-7656FJVUD-19 AntigenResults called at 1301 on 10/15/21 Healthcare Worker?: N Fátima Reference Fátima Reference Negative Fátima Blank COVID19 Pos Results Positive results will only be called to COVID19 Det Results Providers for the following groups of patients: COVID19 Pos Results Pre-Surgical Testing, Emergency Room, and Inpatients. Fátima Blank SARS-CoV+SARS-CoV-2 (COVID-19) Ag [Presence] in Respiratory specimen by Rapid immunoassay Positive for SARS Antigen by YOLY Blank Space Fátima Disclaimer The Fátima SARS Antigen YOLY does not differentiate Fátima Disclaimer between SARS-CoV and SARS-CoV-2. COVID19 Blank Space Fátima Disclaimer This test was developed and its performance Fátima Disclaimer characteristic determined by [employer] and Fátima Disclaimer validated at [facility]. This Fátima Disclaimer test has not been FDA cleared or approved. This Fátima Disclaimer test has been authorized by FDA under an Emergency Use Fátima Disclaimer Authorization (EUA). This test has been validated Fátima Disclaimer in accordance with the FDA's Guidance Document (Policy Fátima Disclaimer for Diagnostics Testing in Laboratories Certified to Fátima Disclaimer Perform High Complexity Testing under CLIA prior to Fátima Disclaimer Emergency Use Authorization for Coronavirus Fátima Disclaimer iseas during the Public Health Emergency) Fátima Disclaimer issued on July 19, 2019. This test is only authorized Fátima Disclaimer for the duration of time the declaration that Fátima Disclaimer circumstances exist justifying the authorization of Fátima Disclaimer the emergency use of in vitro diagnostic tests for Fátima Disclaimer detection of SARS-CoV-2 virus and/or diagnosis of Fátima Disclaimer COVID-19 infection under section 564(b)(1) of the Fátima Disclaimer Act, 21 U.S.C. 360bbb-3(b)(1), unless the Fátima Disclaimer authorization is terminated or revoked sooner. PERFORMED BY: [facility] [address] [place] [address] PATHOLOGIST [employer] ARCHIT[employer] ANNETTE OLMEDO M.D.NormalMiami Valley HospitalComment on above: Performed By: #### GLULS #### Point of Care testing ,[facility]-0521XFTP-CoV-2 (COVID-19) RNA KEELEY+probe Ql (Unsp spec) PositiveCritically abnormalNegativeMiami Valley HospitalComment on above:Order Comment: Healthcare Worker?: NResult Comment: Positive results will only be called to Providers for the following groups of patients: Pre-Surgical Testing, Emergency Room, and Inpatients. Results NOT called. PATIENT HAD POSITIVE ANTIGEN at 1007 on 10/16/21 Testing for SARS-CoV-2 by RT-PCR This test was developed and its performance characteristics determined by [employer] and validated at the [facility]. This test has not been FDA cleared or approved. This test has been authorized by FDA under an Emergency Use Authorization (EUA). This test has been validated in accordance with the FDA's Guidance Document (Policy for Diagnostics Testing in Laboratories Certified to Perform High Complexity Testing under CLIA prior to Emergency Use Authorization for Coronavirus Disease-2019 during the Public Health Emergency) issued on July 19, 2019. This test is only authorized for the duration of time the declaration that circumstances exist justifying the authorization of the emergency use of in vitro diagnostic tests for detection of SARS-CoV-2 virus and/or diagnosis of COVID-19 infection under section 564(b)(1) of the Act, 21 U.S.C. 360bbb-3(b)(1), unless the authorization is terminated or revoked sooner. PERFORMED BY: [facility] [address] [place] [address] PATHOLOGIST [employer] ARCH[employer] ANNETTE OLMEDO M.D.Performed By: #### COVID 19 [facility] #### [place] [address] USAComplete Blood Count Auto Diffon 30-61-7208Czuvuhsnv (Bld) [#/Vol]0.0 10*3/uLNormal0.0-0.2FAdena Pike Medical CenterComment on above:Result Comment: PERFORMED BY: [place] [address] PATHOLOGIST [employer] ARCH[employer] ANNETTE OLMEDO M.D.Performed By: #### MG, TSH3, BNP, CBC, PT, PTT, CK, HS TROP, CMP #### [place] [address] USABasophils/100 WBC (Bld)0.7 %Normal.[facility] HospitalComment on above:Performed By: #### MG, TSH3, BNP, CBC, PT, PTT, CK, HS TROP, CMP #### [place] [address] USAEosinophils (Bld) [#/Vol]0.0 10*3/uLNormal0.0-0.45 [facility] HospitalComment on above:Performed By: #### MG, TSH3, BNP, CBC, PT, PTT, CK, HS TROP, CMP #### [place] [address] USAEosinophils/100 WBC (Bld)0.0 %Normal.[facility] HospitalComment on above:Performed By: #### MG, TSH3, BNP, CBC, PT, PTT, CK, HS TROP, CMP #### [place] [address] USAErythrocyte distribution width (RBC) [Ratio]13.2 %Normal 11.9-15.3FAdena Pike Medical CenterComment on above:Performed By: #### MG, TSH3, BNP, CBC, PT, PTT, CK, HS TROP, CMP #### [place] [address] USAHematocrit (Bld) [Volume fraction]44.4 %Jydpdf71.0-46.4 [facility] HospitalComment on above:Performed By: #### MG, TSH3, BNP, CBC, PT, PTT, CK, HS TROP, CMP #### [facility] [address] [place] [address] USAHemoglobin (Bld) [Mass/Vol]14.7 g/jQHyuvus85.8-15.4 [facility] HospitalComment on above:Performed By: #### MG, TSH3, BNP, CBC, PT, PTT, CK, HS TROP, CMP #### [facility] [address] [place] [address] USALymphocytes (Bld) [#/Vol]0.6 10*3/uLLow1.00-4.8[facility] HospitalComment on above:Performed By: #### MG, TSH3, BNP, CBC, PT, PTT, CK, HS TROP, CMP #### [facility] [address] [place] [address] USALymphocytes/100 WBC (Bld)13.0 %Normal.[facility] HospitalComment on above:Performed By: #### MG, TSH3, BNP, CBC, PT, PTT, CK, HS TROP, CMP #### [facility] [address] [place] [address] USAMCH (RBC) [Entitic mass]29.6 yyXjtpmr79.7-34.3FAdena Pike Medical CenterComment on above:Performed By: #### MG, TSH3, BNP, CBC, PT, PTT, CK, HS TROP, CMP #### [facility] [address] [place] [address] USAMCV (RBC) [Entitic vol]89.3 sWYbbecj68-313QtdyfwjsuMiami Valley HospitalComment on above:Performed By: #### MG, TSH3, BNP, CBC, PT, PTT, CK, HS TROP, CMP #### [facility] [address] [place] [address] USAMean Corpuscular HGB Conc33.1 g/aZDkfbmu07.0-35.0[facility] HospitalComment on above:Performed By: #### MG, TSH3, BNP, CBC, PT, PTT, CK, HS TROP, CMP #### [facility] [address] [place] [address] USAMonocytes (Bld) [#/Vol]0.9 10*3/uLHigh0.0-0.8Mi[facility] Valley HospitalComment on above:Performed By: #### MG, TSH3, BNP, CBC, PT, PTT, CK, HS TROP, CMP #### [facility] [address] [place] [address] USAMonocytes/100 WBC (Bld)19.6 %Normal.[facility] HospitalComment on above:Performed By: #### MG, TSH3, BNP, CBC, PT, PTT, CK, HS TROP, CMP #### [facility] [address] [place] [address] USANeutrophils (Bld) [#/Vol]3.0 10*3/uLNormal1.8-7.7FAdena Pike Medical CenterComment on above:Performed By: #### MG, TSH3, BNP, CBC, PT, PTT, CK, HS TROP, CMP #### [facility] [address] [place] [address] USANeutrophils/100 WBC (Bld)66.7 %Normal.[facility] Valley HospitalComment on above:Performed By: #### MG, TSH3, BNP, CBC, PT, PTT, CK, HS TROP, CMP #### [facility] [address] [place] [address] USANucleated RBC/100 WBC (Bld) [Ratio]0.1 %Normal0-0.5 [facility] HospitalComasc[facility] on above:Performed By: #### MG, TSH3, BNP, CBC, PT, PTT, CK, HS TROP, CMP #### [facility] [address] [place] [address] USAPlatelet mean volume (Bld) [Entitic vol]7.9 fLNormal 6.3-10.7FAdena Pike Medical CenterComment on above:Performed By: #### MG, TSH3, BNP, CBC, PT, PTT, CK, HS TROP, CMP #### [facility] [address] [place] [address] USAPlatelets (Bld) [#/Vol]163 10*3/jWBilkmk572-686FkhqbcabsMiami Valley HospitalComment on above:Performed By: #### MG, TSH3, BNP, CBC, PT, PTT, CK, HS TROP, CMP #### [facility] [address] [place] [address] USARBC (Bld) [#/Vol]4.97 10*6/uLNormal3.60-5.00Mi[facility] HospitalComment on above:Performed By: #### MG, TSH3, BNP, CBC, PT, PTT, CK, HS TROP, CMP #### [facility] [address] [place] [address] USAWBC (Bld) [#/Vol]4.6 10*3/uLNormal4.5-11.0Mi[facility] HospitalComment on above:Performed By: #### MG, TSH3, BNP, CBC, PT, PTT, CK, HS TROP, CMP #### [facility] [address] [place], [place] [address]Comprehensive Metabolic Panelon 00-06-4111Gqppglx [Mass/Vol]3.4 g/dLNormal3.2-5.5FAdena Pike Medical CenterComment on above:Performed By: #### GLULS #### Point of Care testing ,Albumin/Globulin [Mass ratio]1.2 {ratio}NormalMiami Valley Hospital Comment on above:Performed By: #### GLULS #### Point of Care testing ,ALP [Catalytic activity/Vol]50 U/FWoarqr09-62UujtkmdmrMiami Valley Hospital Comment on above:Performed By: #### GLULS #### Point of Care testing ,ALT [Catalytic activity/Vol]17 U/OLtqgod68-44HzfprpcuzMiami Valley Hospital Comment on above:Performed By: #### GLULS #### Point of Care testing ,AST [Catalytic activity/Vol]20 U/SQetueo32-95HcvjuwfniMiami Valley Hospital Comment on above:Performed By: #### GLULS #### Point of Care testing ,Bilirubin [Mass/Vol]1.2 mg/dLNormal0.3-1.2FAdena Pike Medical Center Comment on above:Performed By: #### GLULS #### Point of Care testing ,Calcium [Mass/Vol]8.9 mg/dLNormal8.2-10.2FAdena Pike Medical Center Comment on above:Performed By: #### GLULS #### Point of Care testing ,Chloride [Moles/Vol]99 mmol/QSjutif64-813TxnmeicbkMiami Valley Hospital Comment on above:Performed By: #### GLULS #### Point of Care testing ,CO2 [Moles/Vol]24.8 mmol/DNxfico00.0-30.0[facility] Comment on above:Performed By: #### GLULS #### Point of Care testing ,Creatinine [Mass/Vol]1.38 mg/dLHigh0.44-1.03[facility] Comment on above:Performed By: #### GLULS #### Point of Care testing ,Creatinine Clr Calc Pwpuflqs47.26NoHenry County HospitalComment on above:Performed By: #### GLULS #### Point of Care testing ,Estimated GFR ( Nquchzh79NipwhjUzmzyjndkMetroHealth Parma Medical CenterComment on above:Result Comment: GFR estimated reference range: According to KDOQI guidelines, <60 ml/min/1.73m2 is sufficient to diagnose a patient with chronic kidney disease.Performed By: #### GLULS #### Point of Care testing ,Estimated GFR (Non- Pj25XsdfxaYwmxifprzMetroHealth Parma Medical CenterComment on above:Performed By: #### GLULS #### Point of Care testing ,Globulin (S) [Mass/Vol]2.8 g/dLMetroHealth Parma Medical CenterComment on above:Performed By: #### GLULS #### Point of Care testing ,Glucose [Mass/Vol]92 mg/dJOjvmjn68-536KcrwsywisMiami Valley HospitalComment on above:Result Comment: Random Glucose Reference Range is dependent on time and content of last meal. Glucose of more than 200 mg/dL in a nonstressed, ambulatory subject supports the diagnosis of Diabetes Mellitus. ADA recommended reference rangePerformed By: #### GLULS #### Point of Care testing ,Potassium [Moles/Vol]4.3 mmol/LNormal3.5-5.1FAdena Pike Medical Center Comment on above:Performed By: #### GLULS #### Point of Care testing ,Protein [Mass/Vol]6.2 g/dLNormal6.1-7.9Mi[facility] Valley HospitalComment on above:Performed By: #### GLULS #### Point of Care testing ,Sodium [Moles/Vol]137 mmol/CSdsihs710-866ApxgzstgwMiami Valley Hospital Comment on above:Performed By: #### GLULS #### Point of Care testing ,Urea nitrogen [Mass/Vol]18 mg/dLNormal9-23[facility] Comment on above:Performed By: #### GLULS #### Point of Care testing ,Creatine Kinaseon 63-12-6170EX [Catalytic activity/Vol]123 U/LUwzxoj35-890 [facility] HospitalComment on above:Performed By: #### MG, TSH3, BNP, CBC, PT, PTT, CK, HS TROP, CMP #### [facility] [address] [place] [address] USAECG 12 lead ECGon 70-22-0725NJQ 12 lead ECGELYRI[facility] [place] [address] [place] [address] Electrocardiograph Report Signed Patient: Mare Garcia MR#: [id number] 7 : 1945 Acct:[id number] Age/Sex: 76 / F ADM Date: 10/15/21 Loc: Room: [address] [place] [address] Type: DIS INOo Attending Dr: Vandana Herrera MD Ordering Provider: Loy Mesa DO Date of Service: 10/15/21 ECG/ECG 12 lead ECG: Weakness Copies to: Test Reason : Blood Pressure : 162/066 mmHG Vent. Rate : 076 BPM Atrial Rate : 076 BPM P-R Int : 182 ms QRS Dur : 124 ms QT Int : 418 ms P-R-T Axes : 045 -42 018 degrees QTc Int : 470 ms Normal sinus rhythm Left axis deviation Right bundle branch block Confirmed by Loy MESA DO ([id number]) on 10/15/2021 4:30:45 PM Referred By: Electronically Signed By:Loy MESA DO Transcribed By: MUS Signed By Loy Mesa DO 0 10/15/21 1630NoHenry County HospitalGlucose Poct Glucometerson 83-75-2723Upgwwln [Mass/Vol]91 mg/dLMetroHealth Parma Medical Center Comment on above:Result Comment: Random Glucose Reference Range is dependent on time and content of last meal. Glucose of more than 200 mg/dL in a nonstressed, ambulatory subject supports the diagnosis of Diabetes Mellitus. PERFORMED BY: [place] [address] PATHOLOGIST [employer] ARCHITECT ANNETTE OLMEDO M.D.Performed By: #### GLULS #### Point of Care testing ,Magnesiumon 76-16-3110Svgqxgozf [Mass/Vol]1.8 mg/dLNormal1.6-2.6FAdena Pike Medical CenterComment on above:Performed By: #### GLULS #### Point of Care testing ,Partial Thromboplastin Timeon 37-28-5938cPGT Coag (Bld) [Time]32.2 sNormal 25.1-36.5FAdena Pike Medical CenterComment on above:Result Comment: PERFORMED BY: [place] [address] PATHOLOGIST [employer] ARCHIT[employer] ANNETTE OLMEDO M.D.Performed By: #### MG, TSH3, BNP, CBC, PT, PTT, CK, HS TROP, CMP #### [address] [address] USAProthrombin Time INRon 29-43-3777SEC Coag (PPP) [Relative time]1.8 {INR}[facility] Parma Medical CenterComment on above:Result Comment: INR Therapeutic Range A) Pre- and Peroperative OAT started two weeks before surgery. NOT HIP SURGERY: 1.5 - 2.5 HIP SURGERY: 2 - 3 B) Primary and secondary prevention of venous THROMBOSIS: 2 - 3 C) Active venous thrombosis, pulmonary embolism and prevention of recurrent venous thrombosis: 2 - 3 D) Prevention of arterial thromboembolism including patients with mechanical heart valves: 3 - 4.5Performed By: #### MG, TSH3, BNP, CBC, PT, PTT, CK, HS TROP, CMP #### [facility] [address] [place] [address] USAPT Coag (PPP) [Time]20.2 sHigh9.0-12.9Mi[facility] Valley HospitalComment on above:Performed By: #### MG, TSH3, BNP, CBC, PT, PTT, CK, HS TROP, CMP #### [facility] [address] [place] [address] USASofia Ag Positiveon 82-06-1328Msulf Ag PositivePositive Critically abnormalNegativeMiami Valley HospitalComment on above: Result Comment: This is a duplicate Fátima SARS Antigen (YOLY) result to be used for statistical tracking purpose only. PERFORMED BY: [place] [address] PATHOLOGIST [employer]CH[employer] ANNETTE OLMEDO M.D.Performed By: #### GLULS #### Point of Care testing ,Thyroid Stimulating Hormoneon 77-40-7833QZI Qn2.03 m[IU]/LNormal0.45-5.33 [facility] HospitalComment on above:Result Comment: PERFORMED BY: [place] [address] PATHOLOGIST [employer]CHIT[employer] ANNETTE OLMEDO M.D.Performed By: #### GLULS #### Point of Care testing ,Troponin I High Sensitivityon 45-79-7614Fhbelzji I High Kqqcanqvkcx74 pg/mL Normal0-15Mi[facility] Valley HospitalComment on above:Result Comment: PERFORMED BY: [place] [id number] PATHOLOGIST [employer] ANNETTE OLMEDO M.D.Performed By: #### GLULS #### Point of Care testing ,Urinalysison 48-86-8114Ubmgvqdndw (U)ClearNormalClearMiami Valley HospitalComment on above:Order Comment: Name Collection Type:: Clean-Voided MidstreamPerformed By: #### UA #### [facility] [address] [place] [address] USABilirubin,UrineNegativeNormalNegativeMiami Valley HospitalComascension providence ro[facility] hospital on above:Order Comment: Name Collection Type:: Clean- Voided MidstreamPerformed By: #### UA #### [address] [address] USAColor (U)YellowNormalYellowMiami Valley HospitalComascension providence [facility] hospital on above:Order Comment: Name Collection Type:: Clean-Voided MidstreamPerformed By: #### UA #### [address] [address] USAGlucose Ql (U)NormalNormalNormPremier Health Atrium Medical CenterComment on above:Order Comment: Name Collection Type:: Clean-Voided MidstreamPerformed By: #### UA #### [facility] [address] [place], [place] [address] USAKetones Ql (U)TraceHighNegativeMiami Valley HospitalComascension providence [facility] hospital on above:Order Comment: Name Collection Type:: Clean-Voided MidstreamPerformed By: #### UA #### [facility] [address] [place], [place] [address] USALeukocyte esterase Test strip Ql (U)NegativeNormalNegative [facility] HospitalComment on above:Order Comment: Name Collection Type:: Clean-Voided MidstreamPerformed By: #### UA #### [facility] [address] [place], [place] [address] USANitrite,UrineNegativeNormalNegativeMiami Valley HospitalComascension providence [facility] hospital on above:Order Comment: Name Collection Type:: Clean- Voided MidstreamPerformed By: #### UA #### [place] [id number] USAOccult Blood,UrineNegativeNormalNegativeMiami Valley HospitalComment on above:Order Comment: Name Collection Type:: Clean- Voided MidstreamResult Comment: PERFORMED BY: [place] [address] PATHOLOGIST [employer]CH[employer] ANNETTE OLMEDO M.D.Performed By: #### UA #### [place] [address] USApH (U)5.5 [pH]Normal5.0-9.0Mi[facility] HospitalComment on above:Order Comment: Name Collection Type:: Clean-Voided MidstreamPerformed By: #### UA #### [place] [address] USAProtein,UrineNegativeNormalNegSelect Medical Specialty Hospital - CincinnatiComment on above:Order Comment: Name Collection Type:: Clean- Voided MidstreamPerformed By: #### UA #### [place] [address] USASpecificy [place],Urine1.866Xvlbka8.001-1.030Mi[facility] HospitalComment on above:Order Comment: Name Collection Type:: Clean-Voided MidstreamPerformed By: #### UA #### [place] [address] USAUrobilinogen,UrineNormalNormalNormPremier Health Atrium Medical CenterComment on above:Order Comment: Name Collection Type:: Clean- Voided MidstreamPerformed By: #### UA #### [place] [address] USAXR chest 2V*on 28-86-0016XY chest 2V*[facility] [place] [address] [place] [address] XRay Report Signed Patient: Mare Garcia MR#: [id number] 7 : 1945 Acct:[id number] Age/Sex: 76 / F ADM Date: 10/15/21 Loc: ER Room: Type: PRE ER Attending Dr: Copies to: Loy Mesa DO Ordering Provider: Loy Mesa DO Date of Service: 10/15/21 XR/XR chest 2V*: Weakness PA AND LATERAL CHEST: CLINICAL HISTORY: Confusion, weakness. COMPARISON: None FINDINGS: Sternotomy wires are noted. Cardiomegaly with mild vascular congestion. No focal consolidation, pneumothorax, pleural effusion or free air. Osseous structures demonstrate degenerative change. XR/XR chest 2V* IMPRESSION: CHF FINDINGS WITH CARDIOMEGALY AND MILD VASCULAR CONGESTION. NO FOCAL CONSOLIDATION IS SEEN TO SUGGEST PNEUMONIA. Impression dictated by: Norman Scales Jr., D.OTj10/15/2021 12:15 PM Dictation Location: [facility]- Transcribed By: [facility] 10/15/21 1215 Dictated By: Norman Scales Jr, DO 10/15/21 1214 Signed By: 10/15/21 1215Met[facility] Parma Medical CenterUS ANTWAN DOP LEG LTon 55-15-1489NW ANTWAN DOP LEG LTEXAMINATION: US ANTWAN DOP LEG LT HISTORY: Localized edema COMPARISON: Ultrasound venous Doppler leg left 02/21/2020 FINDINGS: REGION: Left lower extremity THROMBI: Chronic, nonocclusive thrombus extending from common femoral vein through distal femoral vein. COMPRESSIBILITY: Incompletely compressible segments. FLOW: Patient, with slightly abnormal waveform and reduced flow. OTHER: None. IMPRESSION: 1. 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 2. No appreciable acute thrombus. Electronically authenticated by: JOSUÉ MOELLER Date: 2021-09-03 19:28NormalThe [facility] HospitalUA RANDOM W/MICROSCOPICon 26-70-6179NFAXDUJSJPBCMHSPBrjfrpzz NONE SEENThe [facility] HospitalComment on above:Performed By: #### MG, RENAL #### [facility] [address] [place] [address] [address] Brenna Celestin Ql (U)NegativeNormalNEGATIVEThe [facility] Comment on above:Performed By: #### MG, RENAL #### [facility] [address] [place] [address] [address] Brenna Deleon SEENNormalNONE SEENLakeHealth TriPoint Medical Centerment on above:Performed By: #### MG, RENAL #### [facility] [address] [place] [address] [address] Brenna Garcia (U)CLEARNormalCLEARLakeHealth TriPoint Medical Centerment on above: Performed By: #### MG, RENAL #### [facility] [address] [place] [address] [address] Brenna Mcdonald (U)YELLOWNormalYELLOWUc HealthComment on above: Performed By: #### MG, RENAL #### [facility] [address] [place] [address] [address] Brenna ManzanaresCrystals LM Nom (Urine sed)NONE SEENNormalNONE SEENWooster Community Hospital on above:Performed By: #### MG, RENAL #### [facility] [address] [place] [address] [address] Ceja ChangEpithelial cells LM Ql (Urine sed)FEWAbnormalNONE SEEN /RAREThe [facility] HospitalComascension [facility] on above:Performed By: #### MG, RENAL #### [facility] [address] [place] [address] [address] Brenna ManzanaresGlucose Ql (U)NegativeNormalNEGATIVEWooster Community Hospital on above:Performed By: #### MG, RENAL #### [facility] [address] [place] [address] [address] Brenna ManzanaresHemoglobin Ql (U)NegativeNormalNEGATIVEUniversity Hospitals [facility] on above:Performed By: #### MG, RENAL #### [facility] [address] [place] [address] [address] Brenna ManzanaresKetones Ql (U)NegativeNormalNEGATIVELakeHealth TriPoint Medical Centerment on above:Performed By: #### MG, RENAL #### [facility] [address] [place] [address] [address] Brenna ManzanaresLEUKOCYTESNegativeNormalNEGATIVEWooster Community Hospital on above:Performed By: #### MG, RENAL #### [facility] [address] [place] [address] [address] Brenna ObrienUSMODERATEAbnormalNONE SEENThe [facility] HospitalComment on above:Performed By: #### MG, RENAL #### [facility] [address] [place] [address] Dr. Brenna Pacheco Ql (U)PositiveAbnormalNEGATIVEThe [facility] Comment on above:Performed By: #### MG, RENAL #### [facility] [address] [place] [address] Dr. Brenna ManzanarespH (U)7.0 [pH]Normal5-9The [facility] HospitalComment on above: Performed By: #### MG, RENAL #### [facility] [address] [place] [address] Dr. Brenna ManzanaresRBCNONE SEENAbnormal0-2The [facility] HospitalComment on above: Performed By: #### MG, RENAL #### [facility] [address] [place] [address] Dr. Brenna ManzanaresSPEC GRAVITY1.740Domxof4.005-<=1.025The [facility] HospitalComment on above:Performed By: #### MG, RENAL #### [facility] [address] [place] [address] Dr. Brenna Ochoa PROTEINNegativeNormalNEGATIVE/ TRACEThe [facility] Comment on above:Performed By: #### MG, RENAL #### [facility] [address] [place] [address] Dr. Brenna Bealbilinogen Qn (U)0.2 {Tree'U}/dLNormal0.2 - 1.0The [facility] HospitalComment on above:Performed By: #### MG, RENAL #### [facility] [address] [place] [address] Dr. Brenna ManzanaresWBC2-5AbnormalNONE SEENThe [facility] HospitalComment on above: Performed By: #### MG, RENAL #### [facility] [address] [place] [address] Dr. Brenna Patel T PROTEIN CREAT RATIOon 81-00-9815Rzitorv (U) [Mass/Vol] 23.0 mg/dLCritically high<=12.0The [facility] HospitalComment on above:Performed By: #### MG, RENAL #### [facility] [address] [place] [address] Dr. Brenna Nguyễn PROT CREAT RAT0.13NormalThe [facility] HospitalComment on above: Performed By: #### MG, RENAL #### [facility] [address] [place] [address] Dr. Brenna Patel IMNDS741.38 mg/tGBbktvd30.00-300.00The [facility] Comment on above:Performed By: #### MG, RENAL #### [facility] [address] [place] [address] Dr. Brenna Weir INTACTon 84-17-7864TWP, Eoepmg99 pg/aCGatpqw02-73Nsw [facility] HospitalComment on above:Performed By: #### MG, RENAL #### [facility] [address] [place] [address] Dr. Brenna ManzanaresHEMOGRAM AND PLATELon 59-52-4584Hzmuwmxjan (Bld) [Volume fraction]46.3 %Ygvkfs15.0-48.0The [facility] HospitalComment on above:Performed By: #### MG, RENAL #### [facility] [address] [place] [address] Dr. Brenna ManzanaresHemoglobin (Bld) [Mass/Vol]14.8 g/oIHffvtk75.0-16.0The [facility] HospitalComment on above:Performed By: #### MG, RENAL #### [facility] [address] [place] [address] Dr. Brenna Dawson (RBC) [Entitic mass]29.2 qsYokgta68.7-34.0The [facility] HospitalComment on above:Performed By: #### MG, RENAL #### [facility] [address] [place] [address] Dr. Brenna Dwason (RBC) [Mass/Vol]32.0 g/nZZeorqo19.9-35.2The [facility] HospitalComment on above:Performed By: #### MG, RENAL #### [facility] [address] [place] [address] Dr. Brenna DawsonV (RBC) [Entitic vol]91.5 uWJiakjp61.0-99.0The [facility] HospitalComment on above:Performed By: #### MG, RENAL #### [facility] [address] [place] [address] Dr. Brenna ManzanaresPLT187 103/ezBmwche822-315Wcz [facility] HospitalComment on above: Performed By: #### MG, RENAL #### [facility] [address] [place] [address] Dr. Brenna ManzanaresRBC5.06 106/ulNormal4.20-5.40The [facility] HospitalComment on above:Performed By: #### MG, RENAL #### [facility] [address] [place] [address] Dr. Brenna ManzanaresWBC4.5 103/ulNormal4.0-11.0The [facility] HospitalComment on above: Performed By: #### MG, RENAL #### [facility] [address] [place] [address] Dr. Brenna ManzanaresMAGNESIUMon 05-76-3078Jmauxhhnb [Mass/Vol]1.9 mg/dLNormal1.6-2.3 The [facility] HospitalComascension prov[facility] hospital on above:Performed By: #### MG, RENAL #### [facility] [address] [place] [address] Dr. Brenna BeasleyAL FUNCTION PANELon 51-28-9496Sfanusq [Mass/Vol]3.6 g/dLNormal 3.4-5.0The OhioHealthment on above:Performed By: #### MG, RENAL #### [facility] [address] [place] [address] Dr. Brenna ManzanaresCalcium [Mass/Vol]8.9 mg/dLNormal8.5-10.1The [facility] Comment on above:Performed By: #### MG, RENAL #### [facility] [address] [place] [address] [address] Brenna ManzanaresChloride [Moles/Vol]108 mmol/LCritically mjjf84-015Hwq [facility] HospitalComment on above:Performed By: #### MG, RENAL #### [facility] [address] [place] [address] Dr. Brenna ManzanaresCO2 [Moles/Vol]28.6 mmol/TMaputd69.0-30.0[facility] Comment on above:Performed By: #### MG, RENAL #### [facility] [address] [place] [address] Dr. Brenna ManzanaresCreatinine [Mass/Vol]1.34 mg/dLCritically high0.52-1.04The [facility] HospitalComment on above:Performed By: #### MG, RENAL #### [facility] [address] [place] [address] Dr. Ceja ChangEGFR-AF CLAVYQEQ95 mL/min/1.41q4Uqalmeymki low>=60The [facility] HospitalComment on above:Performed By: #### MG, RENAL #### [facility] [address] [place] [address] Dr. Ceja ChangEGFR-NON AF BPQFOGNO65 mL/min/1.15u0Chzefgugvo low>=60The [facility] HospitalComment on above:Performed By: #### MG, RENAL #### [facility] [address] [place] [address] Dr. Brenan ManzanaresGlucose [Mass/Vol]89 mg/eXOaoono17-653Jxc [facility] Comment on above:Performed By: #### MG, RENAL #### [facility] [address] [place] [address] Dr. Brenna ManzanaresPhosphate [Mass/Vol]3.0 mg/dLNormal2.5-4.5The [facility] Comment on above:Performed By: #### MG, RENAL #### [facility] [address] [place] [address] Dr. Brenna ManzanaresPotassium [Moles/Vol]4.0 mmol/LNormal3.4-5.0The [facility] Comment on above:Performed By: #### MG, RENAL #### [facility] [address] [place] [address] [address] Brenna ManzanaresSodium [Moles/Vol]144 mmol/RTkityk136-890Isb [facility] Comment on above:Performed By: #### MG, RENAL #### [facility] [address] [place] [address] Dr. Brenna ManzanaresUrea nitrogen [Mass/Vol]28.0 mg/dLCritically high7.0-18.0The [facility] HospitalComment on above:Performed By: #### MG, RENAL #### [facility] [address] [place] [address] Dr. Brenna ManzanaresVITAMIN D 25 OHon 89-19-9114UOI D 25-OH54.2 ng/mLNormalUc HealthComment on above:Performed By: #### VITAD #### [facility] [facility] [address] [place] [address] Dr. Brenna MartinT D RANGESSEE BELOWSelect Medical Specialty Hospital - CantonComment on above: Result Comment: <20 ng/mL Vit D deficient 20 - <30 ng/mL Vit D insufficient 30 - 100 ng/mL Vit D sufficient >100 ng/mL Potential ToxicityPerformed By: #### VITAD #### [facility] [address] [place] [address] Dr. Brenna Shaffer Metabolic Panelon [id number] gap molar conc13 mmol/L Normal9-15[facility] HospitalComment on above:Result Comment: Effective: 05/25/2018 New reference range for this analyte has been established.Calcium mass conc9.3 mg/dLNormal8.5-9.9[facility] HospitalComment on above:Result Comment: Effective: 05/25/2018 New reference range for this analyte has been established.Chloride molar pgyq488 mmol/AUclsyx55-083VocxeNorthern Colorado Rehabilitation HospitalComment on above:Result Comment: Effective: 05/25/2018 New reference range for this analyte has been established.CO2 molar conc26 mmol/PDojwbh34-01OfdnoNorthern Colorado Rehabilitation HospitalComment on above:Result Comment: Effective: 05/25/2018 New reference range for this analyte has been established.Creatinine mass conc 1.02 mg/dLCritically high0.50-0.90[facility] HospitalGFR/1.73 sq M predicted among blacks MDRD vol rate/area (S/P/Bld)mL/min/{1.73_m2}Normal>60 [facility] HospitalComment on above:Result Comment: >60 mL/min/1.73m2 EGFR, calc. for ages 18 and older using the MDRD formula (not corrected for weight), is valid for stable renal function.GFR/1.73 sq M.predicted MDRD vol rate/area52.9 mL/min/{1.73_m2} Low>60[facility] HospitalComment on above:Result Comment: >60 mL/min/1.73m2 EGFR, calc. for ages 18 and older using the MDRD formula (not corrected for weight), is valid for stable renal function.Glucose mass jjap802 mg/dLCritically dlip67-53MqbgtUniversity of Colorado HospitalComment on above:Result Comment: Effective: 05/25/2018 New reference range for this analyte has been established.Potassium molar conc 4.3 mmol/LNormal3.4-4.9[facility] HospitalComment on above:Result Comment: Effective: 05/25/2018 New reference range for this analyte has been established.Sodium molar mwma429 mmol/BWvfrmn581-174IiptsNorthern Colorado Rehabilitation HospitalComment on above:Result Comment: Effective: 05/25/2018 New reference range for this analyte has been established.Urea nitrogen mass conc15 mg/dLNormal8-23[facility] HospitalCBC With Platelet and Differentialon [id number] #/vol (Bld)0.1 10*3/uLNormal0.0-0.2MUniversity of Colorado HospitalBasophils/100 WBC (Bld)0.8 %[facility] CenterEosinophils #/vol (Bld)0.1 10*3/uLNormal0.0-0.7[facility] HospitalEosinophils/100 WBC (Bld)1.8 %[facility] Erythrocyte distribution width Ratio (RBC)13.8 %Gcwrax35.5-14.5[facility] HospitalHematocrit Volume Fraction (Bld)44.0 %Vmeztp65.0-47.0[facility] HospitalHemoglobin mass conc (Bld)14.3 g/aMDfgurb33.0-16.0[facility] HospitalLymphocytes #/vol (Bld)1.2 10*3/uLNormal1.0-4.8[facility] HospitalLymphocytes/100 WBC (Bld)19.0 %NormalSt. Mary-Corwin Medical CenterH Entitic mass (RBC)29.2 ekCbfkyg53.0-31.3[facility] AkronHC mass conc (RBC)32.6 %Low33.0-37.0[facility] HospitalMCV Entitic volume (RBC)89.5 sZEmwnwq24.0-100.0[facility] Monocytes #/vol (Bld)0.8 10*3/uLNormal0.2-0.8[facility] Monocytes/100 WBC (Bld)13.1 %[facility] CenterNeutrophils #/vol (Bld)4.2 10*3/uLNormal1.4-6.5[facility] HospitalNeutrophils/100 WBC (Bld)65.3 %[facility] Medical CenterPlatelets #/vol (Bld)237 10*3/dTWkxqfh927-748FoxzoNorthern Colorado Rehabilitation HospitalRBC #/vol (Bld)4.92 10*6/uL Normal4.20-5.40[facility] HospitalWBC #/vol (Bld)6.4 10*3/uLNormal 4.8-10.8[facility] HospitalMagnesiumon 78-40-5586Knyyltkeh mass conc 1.7 mg/dLNormal1.7-2.4[facility] HospitalComment on above:Result Comment: Effective: 05/25/2018 New reference range for this analyte has been established.CBC With Platelet No Differentialon 20-77-8648Cuoomlammla distribution width Ratio (RBC)14.2 %Normal 11.5-14.5[facility] HospitalHematocrit Volume Fraction (Bld)46.2 % Nfbfoz66.0-47.0[facility] HospitalHemoglobin mass conc (Bld)15.1 g/dL Iwzqkw24.0-16.0[facility] Entitic mass (RBC)29.2 pgNormal 27.0-31.3MKindred Hospital - DenverHC mass conc (RBC)32.6 %Low33.0-37.0 [facility] HospitalMCV Entitic volume (RBC)89.5 bKFbkfeu19.0-100.0 [facility] HospitalPlatelets #/vol (Bld)166 10*3/wDCtytyu888-678GnhzrNorthern Colorado Rehabilitation HospitalRBC #/vol (Bld)5.16 10*6/uLNormal4.20-5.40[facility] HospitalWBC #/vol (Bld)6.5 10*3/uLNormal4.8-10.8[facility] HospitalBacterial susceptibility panel by MICon [id number] susceptibility panel by Minimum inhibitory concentration (ADE) ORDERED BY: ESTEBAN EMMANUEL SOURCE: Urine Clean Catch COLLECTED: 06/29/18 21:52 ANTIBIOTICS AT ZACK.: RECEIVED : 06/29/18 21:52 Culture, Urine FINAL 07/02/18 09:28 25,000 CFU/ml Pseudomonas aeruginosa Ps. aerug ANTIBIOTICS ADE Interp Cefepime <=1 S Ciprofloxacin <=0.25 S Gentamicin <=1 S Piperacillin/Tazobactam <=4 S Tobramycin <=1 S S=SUSCEPTIBLE I=INTERMEDIATE R=RESISTANT NormalNorthern Colorado Rehabilitation HospitalCulture, Urineon [id number], Urine ORDERED BY: ESTEBAN EMMANUEL SOURCE: Urine Clean Catch COLLECTED: 06/29/18 21:52 ANTIBIOTICS AT ZACK.: RECEIVED : 06/29/18 21:52 Culture, Urine INTERIM 07/01/18 14:30 25,000 CFU/ml Gram negative yaneth ID and sensitivity to followSt. Mary-Corwin Medical CenterUrinalysis, reflex to microscopicon [id number] Ql (U)NegativeNormalNegVibra Long Term Acute Care HospitalClarity Nom (U)ClearNormalClearNorthern Colorado Rehabilitation HospitalColor Nom (U)YellowNormalStraw/YellNorthern Colorado Rehabilitation HospitalGlucose Ql (U)NegativeNormalNegVibra Long Term Acute Care HospitalHemoglobin Ql (U)Negative NormalNegVibra Long Term Acute Care HospitalKetones Ql (U)NegativeNormalNegative [facility] HospitalLeukocyte esterase Test strip Ql (U)NegativeNormal NegativeNorthern Colorado Rehabilitation HospitalNitrite Ql (U)NegativeNormalNegVibra Long Term Acute Care HospitalpH (U)5.0 [pH]Normal5.0-9.0[facility] Protein Ql (U)NegativeNormalNegPikes Peak Regional Hospitalpecific gravity Relative Density (U)1.682Zonhvf4.005-1.03[facility] Urobilinogen Qn (U)0.2 {Tree'U}/dLNormal< 2.0[facility] Basic Metabolic Panelon [id number] gap molar conc13 mmol/LNormal9-15[facility] HospitalComment on above:Result Comment: Effective: 05/25/2018 New reference range for this analyte has been established.Calcium mass conc9.2 mg/dLNormal8.5-9.9[facility] HospitalComment on above:Result Comment: Effective: 05/25/2018 New reference range for this analyte has been established.Chloride molar rrwr056 mmol/VRxqgol09-102HxlsyNorthern Colorado Rehabilitation HospitalComment on above:Result Comment: Effective: 05/25/2018 New reference range for this analyte has been established.CO2 molar conc23 mmol/DMmymmq22-07StgotNorthern Colorado Rehabilitation HospitalComment on above:Result Comment: Effective: 05/25/2018 New reference range for this analyte has been established.Creatinine mass conc 1.38 mg/dLCritically high0.50-0.90[facility] HospitalGFR/1.73 sq M predicted among blacks MDRD vol rate/area (S/P/Bld)45.1 mL/min/{1.73_m2}Low>60 [facility] HospitalComment on above:Result Comment: >60 mL/min/1.73m2 EGFR, calc. for ages 18 and older using the MDRD formula (not corrected for weight), is valid for stable renal function.GFR/1.73 sq M.predicted MDRD vol rate/area37.3 mL/min/{1.73_m2} Low>60[facility] HospitalComment on above:Result Comment: >60 mL/min/1.73m2 EGFR, calc. for ages 18 and older using the MDRD formula (not corrected for weight), is valid for stable renal function.Glucose mass gqet749 mg/dLCritically hcan70-32UaqseUniversity of Colorado HospitalComment on above:Result Comment: Effective: 05/25/2018 New reference range for this analyte has been established.Potassium molar conc 4.9 mmol/LNormal3.4-4.9[facility] HospitalComment on above:Result Comment: Effective: 05/25/2018 New reference range for this analyte has been established.Sodium molar xnow089 mmol/NLttzeh925-481DgzziNorthern Colorado Rehabilitation HospitalComment on above:Result Comment: Effective: 05/25/2018 New reference range for this analyte has been established.Urea nitrogen mass conc28 mg/dLCritically high8-23[facility] HospitalCBC With Platelet No Differentialon 07-14-8409Hhzrsbligzx distribution width Ratio (RBC)14.4 %Normal 11.5-14.5[facility] HospitalHematocrit Volume Fraction (Bld)46.4 % Testib00.0-47.0[facility] HospitalHemoglobin mass conc (Bld)15.1 g/dL Yonthc41.0-16.0[facility] CenterH Entitic mass (RBC)28.9 pgNormal 27.0-31.3MKindred Hospital - DenverHC mass conc (RBC)32.5 %Low33.0-37.[address] [facility] CenterV Entitic volume (RBC)89.1 oPVfiwbu40.0-100.0 [facility] HospitalPlatelets #/vol (Bld)199 10*3/kYGvgscz192-457YigfbNorthern Colorado Rehabilitation HospitalRBC #/vol (Bld)5.21 10*6/uLNormal4.20-5.40[facility] HospitalWBC #/vol (Bld)12.8 10*3/uLCritically high4.8-10.8[facility] HospitalBasic Metabolic Panelon 51-49-9262Uhucn gap molar conc12 mmol/L Normal9-15[facility] HospitalComment on above:Result Comment: Effective: 05/25/2018 New reference range for this analyte has been established.Calcium mass conc8.9 mg/dLNormal8.5-9.9[facility] HospitalComment on above:Result Comment: Effective: 05/25/2018 New reference range for this analyte has been established.Chloride molar wjny086 mmol/GKquhpj91-784ZpziqNorthern Colorado Rehabilitation HospitalComment on above:Result Comment: Effective: 05/25/2018 New reference range for this analyte has been established.CO2 molar conc22 mmol/OSwvqit08-80WaswgNorthern [facility] Rehabilitation HospitalComment on above:Result Comment: Effective: 05/25/2018 New reference range for this analyte has been established.Creatinine mass conc 1.25 mg/dLCritically high0.50-0.90[facility] HospitalGFR/1.73 sq M predicted among blacks MDRD vol rate/area (S/P/Bld)50.6 mL/min/{1.73_m2}Low>60 [facility] HospitalComment on above:Result Comment: >60 mL/min/1.73m2 EGFR, calc. for ages 18 and older using the MDRD formula (not corrected for weight), is valid for stable renal function.GFR/1.73 sq M.predicted MDRD vol rate/area41.8 mL/min/{1.73_m2} Low>60[facility] HospitalComment on above:Result Comment: >60 mL/min/1.73m2 EGFR, calc. for ages 18 and older using the MDRD formula (not corrected for weight), is valid for stable renal function.Glucose mass ffbk791 mg/dLCritically uyju76-78GgpmuUniversity of Colorado HospitalComment on above:Result Comment: Effective: 05/25/2018 New reference range for this analyte has been established.Potassium molar conc 4.6 mmol/LNormal3.4-4.9[facility] HospitalComment on above:Result Comment: Effective: 05/25/2018 New reference range for this analyte has been established.Sodium molar uxjg531 mmol/MOuupip571-127VwmfbNorthern Colorado Rehabilitation HospitalComment on above:Result Comment: Effective: 05/25/2018 New reference range for this analyte has been established.Urea nitrogen mass conc17 mg/dLNormal8-23[facility] HospitalCB With Platelet No Differentialon [id number] distribution width Ratio (RBC)14.3 %Normal 11.5-14.5[facility] HospitalHematocrit Volume Fraction (Bld)44.8 % Vdzvfb69.0-47.0[facility] HospitalHemoglobin mass conc (Bld)14.9 g/dL Lfjnth54.0-16.0[facility] CenterH Entitic mass (RBC)29.4 pgNormal 27.0-31.3MKindred Hospital - DenverHC mass conc (RBC)33.3 %Spkgmo89.0-37.0 [facility] HospitalMCV Entitic volume (RBC)88.3 aBGtrcji54.0-100.0 [facility] CenterPlatelets #/vol (Bld)175 10*3/mUAtnupd002-845RzxbwNorthern Colorado Rehabilitation HospitalRBC #/vol (Bld)5.08 10*6/uLNormal4.20-5.40[facility] HospitalWBC #/vol (Bld)11.5 10*3/uLCritically high4.8-10.8[facility] HospitalPOCT Glucoseon 68-01-8802Efxzqft mass hxdk305 mg/dLCritically high 60-115[facility] HospitalPO Performed onACCU-CHEKNormalNorthern Colorado Rehabilitation HospitalBasic Metabolic Panelon 58-74-1387Aunhi gap molar conc11 mmol/L Normal9-15[facility] HospitalComment on above:Result Comment: Effective: 05/25/2018 New reference range for this analyte has been established.Calcium mass conc8.8 mg/dLNormal8.5-9.9[facility] HospitalComment on above:Result Comment: Effective: 05/25/2018 New reference range for this analyte has been established.Chloride molar kcpd663 mmol/SKkiybj04-524SbvosNorthern Colorado Rehabilitation HospitalComment on above:Result Comment: Effective: 05/25/2018 New reference range for this analyte has been established.CO2 molar conc22 mmol/CAxtbww87-87QwdtjNorthern Colorado Rehabilitation HospitalComment on above:Result Comment: Effective: 05/25/2018 New reference range for this analyte has been established.Creatinine mass conc 1.38 mg/dLCritically high0.50-0.90[facility] HospitalGFR/1.73 sq M predicted among blacks MDRD vol rate/area (S/P/Bld)45.1 mL/min/{1.73_m2}Low>60 [facility] HospitalComment on above:Result Comment: >60 mL/min/1.73m2 EGFR, calc. for ages 18 and older using the MDRD formula (not corrected for weight), is valid for stable renal function.GFR/1.73 sq M.predicted MDRD vol rate/area37.3 mL/min/{1.73_m2} Low>60[facility] HospitalComment on above:Result Comment: >60 mL/min/1.73m2 EGFR, calc. for ages 18 and older using the MDRD formula (not corrected for weight), is valid for stable renal function.Glucose mass ltyf616 mg/dLCritically ghrr46-43ZdvzjUniversity of Colorado HospitalComment on above:Result Comment: Effective: 05/25/2018 New reference range for this analyte has been established.Potassium molar conc 3.4 mmol/LNormal3.4-4.9[facility] HospitalComment on above:Result Comment: Effective: 05/25/2018 New reference range for this analyte has been established.Sodium molar zhme231 mmol/CWbyubm169-522ScdbkNorthern Colorado Rehabilitation HospitalComment on above:Result Comment: Effective: 05/25/2018 New reference range for this analyte has been established.Urea nitrogen mass conc16 mg/dLNormal8-23[facility] With Platelet No Differentialon 10-94-3211Enstv Reviewsee belowNoMiddle Park Medical CenterComment on above:Result Comment: Slide review agrees with reported results Erythrocyte distribution width Ratio (RBC)14.0 %Ywmvxn92.5-14.5[facility] HospitalHematocrit Volume Fraction (Bld)47.9 %Critically high37.0-47.0 [facility] HospitalHemoglobin mass conc (Bld)15.8 g/vTErjign14.0-16.0 [facility] Entitic mass (RBC)29.5 rpWljxbr38.0-31.3MKindred Hospital - DenverHC mass conc (RBC)33.0 %Trdwmu10.0-37.0[facility] HospitalMCV Entitic volume (RBC)89.4 eEQnwgtm13.0-100.0[facility] HospitalPlatelets #/vol (Bld)165 10*3/iEBokeum239-671YeodpNorthern Colorado Rehabilitation HospitalRBC #/vol (Bld)5.36 10*6/uLNormal4.20-5.40[facility] HospitalWBC #/vol (Bld)7.4 10*3/uLNormal4.8-10.8[facility] HospitalCB With Platelet and Differentialon 00-06-3164Auedvalml #/vol (Bld)0.0 10*3/uL Normal0.0-0.2[facility] CenterBasophils/100 WBC (Bld)1.0 %Normal [facility] HospitalEosinophils #/vol (Bld)0.2 10*3/uLNormal0.0-0.7 [facility] HospitalEosinophils/100 WBC (Bld)3.2 %[facility] CenterErythrocyte distribution width Ratio (RBC)14.5 %Fjkxfc06.5-14.5 [facility] HospitalHematocrit Volume Fraction (Bld)49.0 %Critically high37.0-47.0[facility] HospitalHemoglobin mass conc (Bld)16.0 g/dL Opxzxv15.0-16.0[facility] HospitalLymphocytes #/vol (Bld)1.0 10*3/uL Normal1.0-4.8[facility] HospitalLymphocytes/100 WBC (Bld)20.2 %Normal [facility] HospitalMCH Entitic mass (RBC)29.0 owJtisik00.0-31.3MUniversity of Colorado HospitalMCHC mass conc (RBC)32.7 %Low33.0-37.0[facility] HospitalMCV Entitic volume (RBC)88.9 yRDoomkj50.0-100.0[facility] HospitalMonocytes #/vol (Bld)0.5 10*3/uLNormal0.2-0.8[facility] HospitalMonocytes/100 WBC (Bld)9.5 %[facility] Neutrophils #/vol (Bld)3.2 10*3/uLNormal1.4-6.5[facility] Neutrophils/100 WBC (Bld)66.1 %[facility] CenterPlatelets #/vol (Bld)189 10*3/qQOhleyf840-677SujfhNorthern Colorado Rehabilitation HospitalRBC #/vol (Bld) 5.51 10*6/uLCritically high4.20-5.40[facility] HospitalWBC #/vol (Bld) 4.8 10*3/uLNormal4.8-10.8[facility] HospitalComprehensive Metabolic Panelon 88-43-4698Poovz gap molar conc12 mmol/LNormal9-15[facility] HospitalComment on above:Result Comment: Effective: 05/25/2018 New reference range for this analyte has been established.Albumin mass conc3.8 g/dLNormal3.5-4.6MUniversity of Colorado HospitalComment on above:Result Comment: Effective: 05/25/2018 New reference range for this analyte has been established.ALP enzyme act/vol70 U/LEmvgbc58-862UjfshNorthern Colorado Rehabilitation HospitalALT enzyme act/vol16 U/LNormal0-33 [facility] HospitalAST enzyme act/vol18 U/LNormal0-35[facility] HospitalComment on above:Result Comment: Specimen hemolysis has exceeded the interference as defined by Terese. Value may be falsely increased. Suggest recollection if clinically indicated.Bilirubin mass conc0.7 mg/dLNormal0.2-0.7 [facility] HospitalComment on above:Result Comment: Effective: 05/25/2018 New reference range for this analyte has been established.Calcium mass conc9.5 mg/dLNormal8.5-9.9[facility] HospitalComment on above:Result Comment: Effective: 05/25/2018 New reference range for this analyte has been established.Chloride molar vsid732 mmol/XDyahoq35-484AqbppNorthern Colorado Rehabilitation HospitalComment on above:Result Comment: Effective: 05/25/2018 New reference range for this analyte has been established.CO2 molar conc22 mmol/KSnpsaa28-94AikagNorthern Colorado Rehabilitation HospitalComment on above:Result Comment: Effective: 05/25/2018 New reference range for this analyte has been established.Creatinine mass conc 1.09 mg/dLCritically high0.50-0.90[facility] HospitalGFR/1.73 sq M predicted among blacks MDRD vol rate/area (S/P/Bld)59.3 mL/min/{1.73_m2}Low>60 [facility] HospitalComment on above:Result Comment: >60 mL/min/1.73m2 EGFR, calc. for ages 18 and older using the MDRD formula (not corrected for weight), is valid for stable renal function.GFR/1.73 sq M.predicted MDRD vol rate/area49.0 mL/min/{1.73_m2} Low>60[facility] HospitalComment on above:Result Comment: >60 mL/min/1.73m2 EGFR, calc. for ages 18 and older using the MDRD formula (not corrected for weight), is valid for stable renal function.Globulin mass conc (S)2.9 g/dLNormal2.3-3.5[facility] HospitalGlucose mass ptux436 mg/dLCritically gbts91-95WsiorUniversity of Colorado HospitalComment on above:Result Comment: Effective: 05/25/2018 New reference range for this analyte has been established.Potassium molar conc 4.0 mmol/LNormal3.4-4.9[facility] HospitalComment on above:Result Comment: Effective: 05/25/2018 New reference range for this analyte has been established.Protein mass conc6.7 g/dLNormal6.3-8.0[facility] HospitalComment on above:Result Comment: Effective: 05/25/2018 New reference range for this analyte has been established.Sodium molar vjxs203 mmol/WFanpim416-242EwrrxNorthern Colorado Rehabilitation HospitalComment on above:Result Comment: Effective: 05/25/2018 New reference range for this analyte has been established.Urea nitrogen mass conc16 mg/dLNormal8-23[facility] HospitalMRI CERVICAL SPINE WO CONTRASTon [id number] CERVICAL SPINE WO CONTRASTMRI of the cervical spine without contrast. History: Weakness. Neck pain for 2 months. Technique: Multiplanar multisequence MRI of the cervical spine was performed without contrast. Comparison: None available Findings: Examination is degraded by motion artifact. No aggressive bone marrow signal abnormality. Cervical spine vertebral body heights are preserved. Mild dextrocurvature of the lower cervical spine. Patient throughout the cervical spine multilevel intervertebral disc space narrowing most significant at C5-6 and C6-7 where it is moderate in degree and inserts associated degenerative endplate changes. C2-C3: No significant disc bulge. Mild left uncovertebral hypertrophy. No neuroforaminal or spinal canal stenosis. C3-C4: Small disc bulge. Mild facet arthropathy. Mild bilateral uncovertebral hypertrophy. Moderatespinal canal stenosis. Moderate bilateral neuroforaminal stenosis. C4-C5: Moderate disc bulge. Mild bilateral uncovertebral hypertrophy. Moderate facet arthropathy, greater on the left. Severe spinal canal stenosis. Moderate bilateral neuroforaminal stenosis. There is a tiny focus of hyperintense T2 signal within the spinal cord at the C5 level measures up to 4 mm as seen on sagittal series 3 and 5 image 7. C5-C6: Moderate disc bulge. Mild bilateral uncovertebral hypertrophy. Mild facet arthropathy. Moderate to severe spinal canal stenosis. Severe bilateral neuroforaminal stenosis. C6-C7: Moderate disc bulge. Mild bilateral uncovertebral hypertrophy. Mild facet arthropathy. Moderate spinal canal stenosis. Moderate bilateral neuroforaminal stenosis. C7-T1: Small central disc protrusion. Mild facet arthropathy. Mild to moderate bilateral neuroforaminal stenosis. Mild spinal canal stenosis. Enlarged and very heterogenous right thyroid lobe extending into the upper mediastinum. IMPRESSION: Multilevel degenerative changes of the cervical spine as detailed above including severe spinal canal stenosis at C4-5 with a 4 mm hyperintense T2 signal focus within the anterior spinal cord at the C5 level possibly relating to small focus of cord edema or myelomalacia. Moderate spinal canal stenosis at C3-4 and C6-7 and moderate to severe spinal canal stenosis at C5-6. Severe bilateral neuroforaminal stenosis at C5-6 and moderate bilateral neuroforaminal stenosis at C3-4, C4-5, and C6-7. Enlarged and very heterogenous right thyroid lobe extending into the upper mediastinum. Interpreted by: Jim Jimenez DO Signed by: Jim Jimenez DO 06/25/18 Final resultNormalNorthern Colorado Rehabilitation HospitalProthrombin Timeon [id number] Coag RelTime (PPP)1.0 {INR}[facility] CenterComment on above: Result Comment: Recommended INR therapeutic ranges for oral anticoagulant therapy Prophylaxis/treatment of: INR Venous Thrombosis, Pulmonary Embolism 2.0-3 Prevention of Systemic Embolism from: Atrial Fibrillation 2.0-3.0 Myocardial Infarction 2.0-3.0 Mechanical Prosthetics Heart Valves 2.5-3.5 Recurrent Systemic Embolism 2.5-3.5 Guidelines for patients with coagulopathy, e.g. liver disease: Use the Protime resulted in seconds. Mild 12.9-17.0 sec Moderate 17.1-22.6 sec Severe G.T. 22.6 secProthrombin time (PT) Coag time (PPP)10.0 sNormal9.0-11.5 [facility] HospitalComment on above:Result Comment: Effective 03/21/18: Please note reference ranges have changed for PT testing.XR CERVICAL SPINE (4-5 VIEWS)on 86-28-4047AB CERVICAL SPINE (4-5 VIEWS)EXAMINATION: XR CERVICAL SPINE (8 VIEWS) CLINICAL HISTORY: PAIN COMPARISONS: None available. FINDINGS: Osteopenia. Vertebral bodies normal height and alignment. No prevertebral soft tissue swelling. Disc space C5-6 and C6-7. No fracture, dislocation, bone lesion. Remote median sternotomy. IMPRESSION: NO FRACTURE. MODERATE DEGENERATIVE CHANGE LOWER CERVICAL SPINE. Interpreted by: Jhonatan Beltran MD Signed by: Jhonatan Beltran MD 06/26/18 Final resultNoMiddle Park Medical CenterXR CHEST (2 VW)on 56-42-0768HO CHEST (2 VW)EXAMINATION: XR CHEST (2 VW) CLINICAL HISTORY: PREOP COMPARISONS: None available. FINDINGS: Median sternotomy. Osteopenia. Disc space narrowing mid and lower thoracic spine. Prominent anterior osteophytes lower thoracic spine. Cardiopericardial silhouette normal. Pulmonary vasculature normal. Lungs clear. IMPRESSION: NO ACUTE CARDIOPULMONARY DISEASE Interpreted by: Jhonatan Beltran MD Signed by: Jhonatan Beltran MD 06/26/18 Final resultNoMiddle Park Medical CenterPap,Cyto Gynon 73-04-7613Bdc,Cyto GynTest performed at [address] [id number]: MARE GARCIA [id number] REQUESTING: DANA ARNOLDPECIMEN: TP CX REFLEX TO HPV ASCUSRelevant History:Hysterectomy: Y, History of Ca: y,SPECIMEN ADEQUACYSAT ISFACTORY FOR EVALUATION.GENERAL CATEGORIZATIONNEGATIVE FOR INTRAEPITHELIAL LESION OR MALIGNANCY.INTERPRETATION/RESULTREACTIVE CELLULAR CHANGES ASSOCIATED WITH INFLAMMATION OR REPAIR.Electronically signed: 06/01/2017Screened by: SUSHIL ROCHE(ASCP)Signed Out by: ALONSO MG M.D.,PATHOLOGISTThe Pap test serves as a screening tool for early detection of cervical cancer. The Pap test does not represent a final diagnostic test forcervical cancer. Furthermore, the Pap test was not designed to screenfor other malignancies (endometrial, ovarian cancer, etc....). Falsenegatives and false positives have occurred. If clinically indicated,further patient evaluation is recommended.Printed on: June 01, 2017 [address] [place], [place] [address]Comment on above:Performed By: #### CYTOP ####[address] [address]UWJMyg 18-64-7294UZPPXydmjx Visit (AGGYNONPOB) RADHAMARE Marissa ([id number]) 1945 FDate Time Provider Department05/24/17 1:00 PM ALONSO PANDA During your visit today, we recorded the following information about you: TemperaturePulse Respiration Blood pressure 98.1 degrees 84/minute 16/minute 122/80 Weight Height 121.1 kg 1.626 April Panda MD 05/24/2017 1:36 PM AddendumPROBLEM: stage IIA SCC endometriumCurrent Outpatient Prescriptions:lisinopril (ZESTRIL, PRINIVIL) 10 mg tablet Take 10 mg by mouth once daily.Disp: Rfl:CHOL/GL/SER/RNA/PHEN/PRG/HB150 (SHARPER FOCUS ORAL) Take by mouth. Disp: Rfl:CALCIUM CARBONATE/VITAMIND3 (CALCIUM+D ORAL) Take by mouth. Disp: Rfl:sulfamethoxazole-trimethoprim (BACTRIM DS,SEPTRA DS) 800-160 mg per tabletDisp: Rfl:No current facility-administered medications for this visit.SUBJECTIVE:Marereports that she feels well. No vaginal bleeding or discharge. Noshortness of breath, cough, orchest pain. No abdominal pain, nausea,vomiting, diarrhea, or constipation. No dysuria, gross hematuria, urinaryfrequency, urinary urgency, or incontinence. Her ECOG performance status is 1(restrictedin physically strenuous activity but ambulatory and able to carryout work of a light or sedentary nature).BP 122/80 Pulse 84 Temp (Src) 98.1 (Oral) Resp 16 Ht 5' 4ANDquot; (1.63m) Wt 267 lb (121.1kg) SpO2 96% BMI 45.81 kg/(m2).PHYSICAL EXAM:GEN: ComfortableHEENT: MMM, normocephalicNECK: No cervical or supraclavicular adenopathy. No thyromegalyCARD: RRRPULM: Clear bilatABD: Soft, nontender, not distended, no organomegalyGROIN: No inguinal adenopathyPELVIC: The external genitalia are normal. Vaginal saha without lesion.Rectovaginal negative for mass.EXT: No lower ext edema or tendnerness.Transmission System Operator: Janelle Olvera, NPASSESSMENT:71 yo stage IIA SCC endometriumTAH/BSO 3 pelvic lymph nodes sampled 03/2011Radiation, chemo 2011PLAN:No clinical evidence of disease recurrenceFollow upPapMammo up to date and nl per pt OSHStool cards w PCP, nl up to date per ptBMD nl 11/2015Chest 04/2017Continue surveillanceRTC 1yTETO Arnoldefkeenan Provider: SELF [200]Allergies As of Date: 05/24/2017(No Known Allergies)Date Reviewed: 05/24/2017Reviewed by: Shereen (Carli) Rajiv - Fully AssessedReason for Visit: Follow Up [171]Visit Diagnosis: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 * CALCIUM+D ORAL Take by mouth. 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] INVALID FOR* Personal history of malignant neoplasm of cervi*INVALID FOR* Uterine cancer (HCC) [C55] INVALID FOR* Endometrial cancer (HCC) [C54.1] INVALID FOR*Disposition: Return in about 1 year (around 05/24/2018).Follow-up and Disposition History RecordedEncounter Number: [id number] Status:Closed by ALONSO PANDA MD on 05/24/17[facility] HospitalPROGRESSon 50-84-3839OTLZDZUEYCT ID: [id number]: Alonso Nickersonervice: (none)Author Type: PhysicianType: Progress NotesFiled: 05/24/2017 1:36 PMNote Text:PROBLEM: stage IIA SCC endometriumCurrent Outpatient Prescriptions:lisinopril (ZESTRIL, PRINIVIL) 10 mg tablet Take 10 mg by mouth oncedaily. Disp: Rfl:CHOL/GL/SER/RNA/PHEN/PRG/HB150 (SHARPER FOCUS ORAL) Take by mouth. Disp:Rfl:CALCIUM CARBONATE/VITAMIN D3 (CALCIUM+D ORAL) Take by mouth. Disp:Rfl:sulfamethoxazole-trimethoprim (BACTRIM DS,SEPTRA DS) 800-160 mg per tablet Disp: Rfl:No current facility-administered medications for this visit.SUBJECTIVE:Maryreports that she feels well. No vaginal bleeding or discharge. Noshortness of breath, cough, or chest pain. No abdominal pain, nausea,vomiting, diarrhea, or constipation. No dysuria, gross hematuria, urinaryfrequency, urinary urgency, or incontinence. Her ECOG performance statusis 1 (restricted in physically strenuous activity but ambulatory and ableto carry out work of a light or sedentary nature).BP 122/80 Pulse 84 Temp (Src) 98.1 (Oral) Resp 16 Ht 5' 4 (1.63m) Wt 267 lb (121.1kg) SpO2 96% BMI 45.81 kg/(m2).PHYSICAL EXAM:GEN: ComfortableHEENT: MMM, normocephalicNECK: No cervical or supraclavicular adenopathy. No thyromegalyCARD: RRRPULM: Clear bilatABD: Soft, nontender, not distended, no organomegalyGROIN: No inguinal adenopathyPELVIC: The external genitalia are normal. Vaginal saha without lesion.Rectovaginal negative for mass.EXT: No lower ext edema or tendnerness.Transmission System Operator: Janelle Olvera, NPASSESSMENT:71 yo stage IIA SCC endometriumTAH/BSO 3 pelvic lymph nodes sampled 03/2011Radiation, chemo 2011PLAN:No clinical evidence of disease recurrenceFollow up PapMammo up to date and nl per pt OSHStool cards w PCP, nl up to date per ptBMD nl 11/2015Chest 04/2017Continue surveillanceRTC 1yAlonso Panda MDNorthern Light Mayo Hospital Vital Signs Date TimeVital SignValuePerforming FyzjwsrfiIjgcfhmx38-35-3616 13:06-0400Body dtchxrrlbsy58.2 [degF][facility] WOOD HEEL ATTACHER Work Phone: [phone] [place], [place] 5800710-08-2025 13:06-0400 Diastolic blood eeqwaumb89 mm[Hg]Leoncio [facility] WOOD HEEL ATTACHER Work Phone: [phone] [place], [place] 5800710-08-2025 13:06-0400 Heart rate95 /[facility] WOOD HEEL ATTACHER Work Phone: [phone])[address] [place], [place] 5800710-08-2025 13:06-0400 Respiratory rate20 /[facility] WOOD HEEL ATTACHER Work Phone: [phone])[address] [place], [place] 5800710-08-2025 13:06-0400 SaO2% (BldA) [Mass fraction]96 %[facility] WOOD HEEL ATTACHER Work Phone: [phone])[address] [place], [place] 5800710-08-2025 13:06-0400 Systolic blood kwnlxqem506 mm[Hg][facility] WOOD HEEL ATTACHER Work Phone: [phone]05-21-2025 14:49-0400 Diastolic blood feqcimcg82 mm[Hg]Mimi MATTHEWS Work Phone: NOCox Walnut LawnNavqxhbjzt65-97-6912 14:49-0400Heart rate60 /min Mimi MATTHEWS Work Phone: noCox Walnut LawnHniqwygklc39-97-3970 14:49-0400Systolic blood mkfbbazo793 mm[Hg]Mimi MATTHEWS Work Phone: NOC[facility] Walnut LawnMbfaqsvuah44-07-7526 14:54-0500Body .94 [facility]03-04-2025 14:54-0500Body pgjvvnqquwu41.3 [degF][facility]03-04-2025 14:54-0500Diastolic blood mm[Hg][facility]03-04-2025 14:54-0500Heart rate57 /[facility]03-04-2025 14:54-0500Respiratory rate16 /[facility]03-04-2025 14:54-3489GdW2% (BldA) [Mass fraction]96 %[facility]03-04-2025 14:54-0500 Systolic blood kfarfaav94 mm[Hg][facility]11-11-2024 14:25-0500Diastolic blood powedvob42 mm[Hg]Luke Dixon HYDRO SPRAYER OPERATOR Work Phone: [facility] HospitalYdnjxfnyqt22-73-9391 14:25-0500Heart rate56 /min Luke Dixon HYDRO SPRAYER OPERATOR Work Phone: [facility] HospitalCecseeubqr94-09-9156 14:25-0500Systolic blood mm[Hg]Luke Dixon HYDRO SPRAYER OPERATOR Work Phone: [facility] HospitalDthlxvxnup22-29-3613 13:04-0400Body hkoeym128.94 [facility]07-10-2024 13:04-0400Body egtfyabqtjj53 [degF][facility]07-10-2024 13:04-0400Diastolic blood kibvyofu89 mm[Hg][facility]07-10-2024 13:04-0400Heart rate61 /[facility]07-10-2024 13:04-0400Respiratory rate20 /[facility]07-10-2024 13:04-5048SlK9% (BldA) [Mass fraction]99 %[facility]07-10-2024 13:04-0400 Systolic blood jrazdgqh528 mm[Hg][facility]03-20-2024 14:13-0400Body cxskqazkkjn01 [degF][facility]03-20-2024 14:13-0400Diastolic blood mm[Hg][facility] 07-06-2023 14:13-0400Heart rate75 /[facility]Fire[facility] 07-06-2023 14:13-0115FeY7% (BldA) [Mass fraction]98 %[facility]03-20-2024 14:13-0400Systolic blood lxxabplm742 mm[Hg][facility]03-13-2023 15:00-0400Body keevhi270.94 cmDana Easterdraper Other [employer] Other 03-13-2023 15:00-0400Body tjgzwumkjmz38.4 [degF]Leoncio Easterwood Other [employer] Other 03-13-2023 15:00-0400Diastolic blood mm[Hg] Leoncio Easterwood Other [employer] Other 03-13-2023 15:00-0400Respiratory rate20 /minDana Eastwood Other [employer] Other 03-13-2023 15:00-9931CsS2% (BldA) [Mass fraction]99 % Leoncio Easterwood Other [employer] Other 03-13-2023 15:00-0400Systolic blood aigbaape540 mm[Hg] Leoncio Easterwood Other [employer] Other 05-19-2022 14:30-0400Body .94 cmDana [facility] Other [employer] Other 05-19-2022 14:30-0400Body mass index (BMI) [Ratio] 43.26 kg/m2Dana Selwyn Other [employer] Other 05-19-2022 14:30-0400Body nflpwckgark83.8 [degF]Leoncio Herberterjosé miguel Other [employer] Other 05-19-2022 14:30-0400Body tvseho037.87 kgDana Sandradraper Other [employer] Other 05-19-2022 14:30-0400Diastolic blood nswjteyn68 mm[Hg] Leoncio Herberterjosé miguel Other [employer] Other 05-19-2022 14:30-0400Respiratory rate20 /minDana Herbertregency [facility] Other [employer] Other 05-19-2022 14:30-6098MuI7% (BldA) [Mass fraction]99 % Leoncio Godinezjosé miguel Other [employer] Other 05-19-2022 14:30-0400Systolic blood jlxhibor995 mm[Hg] Leoncio Samano Other [employer] Other 04-14-2022 15:20-0400Body reqmnj145.94 cmAbdul Rosanna Other [employer] Other 04-14-2022 15:20-0400Body cxnbyqwqttr72.1 [degF]Heber Rosanna Other [employer] Other 04-14-2022 15:20-0400Diastolic blood ovodubev55 mm[Hg] Heber Rosanna Other [employer] Other 04-14-2022 15:20-0400Respiratory rate20 /minAbdul Rosanna Other [employer] Other 04-14-2022 15:20-3809KaH7% (BldA) [Mass fraction]99 % Heber Rosanna Other [employer] Other 04-14-2022 15:20-0400Systolic blood stzyqily565 mm[Hg] Heber Rosanna Other [employer] Other 2021 14:40-0400Body akmpfq259.94 cmAbdul Rosanna Other [employer] Other 2021 14:40-0400Body mass index (BMI) [Ratio] 42.21 kg/y0Jygcg Rosanna Other [employer] Other 2021 14:40-0400Body yrrnzhqumeg28.3 [degF]Heber Rosanna Other [employer] Other 2021 14:40-0400Body .33 kgAbdul Rosanna Other [employer] Other 2021 14:40-0400Diastolic blood jnmwpcfo14 mm[Hg] Heber Rosanna Other [employer] Other 2021 14:40-0400Respiratory rate20 /minAbdul Rosanna Other [employer] Other 2021 14:40-7708ClQ2% (BldA) [Mass fraction]97 % Heber Rosanna Other [facility] [employer] Other [id number] 14:40-0400Systolic blood xvivctdo275 mm[Hg] Heber Rosanna Other [facility] [employer] Other Encounters Encounter DateEncounter TypeCare ProviderFacilityStart: 01-23-2025 End: 04-20-1232pmawrmxzvwTfpk J Easterdraper WOOD HEEL ATTACHER Work Phone: [facility] Work Phone: Start: 01-23-2025 End: 25-82-9595Ihuppwl encounter procedureDasavanah Samano APRN-[facility] Work Phone: Start: 52-18-6868Atg-patient / Non-visitDaryl Joe Sol MD-[facility] Work Phone: Start: 19-61-6512Ett-patient / Non-visitDamario Sol MD-[facility] Work Phone: Start: 03-49-7190Ycn-patient / Non-visitJayda Amin [facility] Work Phone: Start: 46-83-7516Pdg-patient / Non-visitHemalatha CottrellEmanate Health/[facility] Work Phone: Start: 09-05-2024 End: 23-04-5170Yzecph outpatient visit 15 Vivian MATTHEWS Work Phone: ana BELLEVUEComment on above:Late onset Alzheimer's disease with behavioral disturbance (CMS/HCC) (Primary Dx); Mood disturbance; Paroxysmal atrial fibrillation (CMS/HCC); Gait instabilityStart: 09-05-2024 End: 42-34-8656iunllkmxyjKCOZ HILLNot AvailableStart: 09-05-2024 End: 24-46-6143Faurpe Meche MATTHEWS Work Phone: ana BELLEVUEStart: 09-05-2024 End: 35-53-5808Kmdrtw Meche Quispe PA Work Phone: ana BELLEVUEStart: 06-19-2024 End: 98-50-7958whvzrdpfylKovzmcrluParkview Health Work Phone: Start: 06-19-2024 End: 94-30-1523Wpatlgm encounter procedureCannon Memorial Hospital Physician GroupEmanate Health/[facility] Work Phone: Start: 47-89-7807Hel-patient / Non-visitCannon [facility] Hospital Physician [facility] Work Phone: Start: 02-27-2024 End: 97-22-7585Kutrce outpatient visit 15 minutesLuke Dixon HYDRO SPRAYER OPERATOR Work Phone: [facility] STATE ROUTEComment on above:Late onset Alzheimer's disease with behavioral disturbance (CMS/HCC) (Primary Dx); Mood disturbance; Paroxysmal atrial fibrillation (CMS/HCC); Gait instabilityStart: 02-27-2024 End: 39-46-3145zbytmpbmhxLACXGK MORRISNot AvailableStart: 02-27-2024 End: 48-01-0960Dizuzg Janine Dixon HYDRO SPRAYER OPERATOR Work Phone: [facility] STATE ROUTEStart: 02-27-2024 End: 34-63-2028Vlznwi Janine Dixon HYDRO SPRAYER OPERATOR Work Phone: [facility] STATE ROUTEStart: 10-26-2023 End: 74-94-8748udsgdlncweOwifgbbhjParkview Health Work Phone: Start: 10-26-2023 End: 77-53-7765Mvifzbr encounter procedureCannon [facility] Hospital Physician [facility] Work Phone: Start: 10-03-2023 End: 27-14-5321fbetxxaamfVQSERV MORRISNot AvailableStart: 07-06-2023 End: 79-42-9813qwxtyvjliiGpmazummn [facility] Work Phone: Start: 07-06-2023 End: 68-41-2518Lqlwsix encounter procedureFirelands Physician Group-[facility] Family [facility] Work Phone: Start: 12-94-6931Sqy-patient / Non-visitYahir Physician Group-[facility] Professional [employer] Work Phone: Start: 05-04-2023 End: 91-03-4916fcbksojgigYgrt Easterwood Other [employer] Other Start: 34-75-2468Rzghgnauy encounterDana EasterwoodFPG [facility] Hospitaltart: 85-32-3877Lkthhzi encounter procedureYahir Physician Group-Start: 05-03-2023 End: 93-51-2672uozeuntxukStgu Easterwood Other [employer] Other Start: 16-11-9052Kwwhgicsy encounterDana EasterwoodFPG Family [facility] Centertart: 11-01-2022 End: 67-80-7979otkklscpydRdkb Easterwood Other [employer] Other Start: 63-93-0571Bwqykwhxo encounterDana EasterwoodFPG [facility] Hospitaltart: 08-11-2022 End: 24-72-2709hlkcbrmnxxJjlo Easterwood Other [employer] Other Start: 29-77-0326Jrhelpyio encounterDana EasterwoodFPG [facility] Hospitaltart: 08-03-2022 End: 44-58-9141sjzauahgsfGtsp Easterwood Other [employer] Other Start: 11-67-4038Sdwqihrjt encounterDana EasterwoodFPG [facility] Hospitaltart: 07-13-2022 End: 14-43-2259mpymwywgjdTupu Easterwood Other [employer] Other Start: 38-80-2089Bojgofrkt encounterDana EasterwoodFPG [facility] Hospitaltart: 07-08-2022 End: 87-00-0627ucjjoerlwhDqum Easterwood Other [employer] Other Start: 39-09-2599Wrsvkdnqc encounterDana EasterwoodFPG [facility] Hospitaltart: 06-28-2022 End: 64-30-2983ssqtdsrmnuAsff Easterwood Other [employer] Other Start: 20-59-4004Bswoxy outpatient visit 40 minutes [facility]St[facility] Hospitaltart: 06-21-2022 End: 57-88-9872kbryoehofrMEZXC QADIRFacility:P3Yqbct: 06-16-2022 End: 90-53-6073zocekhnfuwNLVEY QADIRFacility:H4Jnkpr: 05-27-2022 End: 82-00-8975wrhacxwfgoUnel Easterwood Other [employer] Other Start: 44-46-6676Kxxeiswev encounterDana HerberterwoodG Referral CoordinatorStart: 05-05-2022 End: 19-21-7920kygumwswhnWipu Easterwood Other [employer] Other Start: 44-73-7339Izvrwhrwb encounterDana HerberterwoodFPG [facility] Hospitaltart: 03-30-2022 End: 90-94-1297iprztvvzplYekx Easterwood Other [employer] Other Start: 62-32-0843Txxvzbgbu encounterDana EasterwoodFPG [facility] Hospitaltart: 03-29-2022 End: 55-48-1802ngzjvuwtgzUcmf Easterwood Other [employer] Other Start: 78-99-1693Rsdujjdel encounterDana EasterwoodFPG [facility] Hospitaltart: 01-27-2022 End: 25-69-8338iwrubxdaohEmei Easterwood Other [facility] [employer] Other Start: 91-57-9701Zrameffud encounterDana EasterwoodFPG [facility] Hospitaltart: 12-22-2021 End: 27-41-6461zvzmnmzumfYjbz Easterwood Other [facility] [employer] Other Start: 73-83-3192Wrphuznsx encounterDana EasterwoodFPG [facility] Hospitaltart: 11-10-2021 End: 67-68-5233wsulmdefmxSnbz Easterwood Other [facility] [employer] Other Start: 18-59-6019Oayvviyrc encounterDana EasterwoodFPG [facility] Hospitaltart: 11-02-2021 End: 21-73-4815vzzmpkqcxrTiei Easterwood Other [facility] [employer] Other Start: 61-19-2158Gbzsprxwp encounterDana EasterwoodFPG [facility] Hospitaltart: 10-29-2021 End: 47-18-3385mleyekyxppGrsa Easterwood Other [employer] Other Start: 62-48-3621Blsigwbmc encounterDana EasterwoodFPG [facility] Hospitaltart: 10-21-2021 End: 30-74-3398wmdlxjkizrLzco Easterwood Other [employer] Other Start: 48-82-1458Sqihkudqn encounterDana EasterwoodB[facility]NER DESERT [facility] Hospitaltart: 10-20-2021 End: 24-31-2181chftgtnktjPgxk Easterwood Other [employer] Other Start: 69-77-5028EQ ONLINE E/M PHY VIRTUL >21Dana [facility] Hospitaltart: 60-62-7300Cprprctlr encounterDana [facility] HospitalwoodB[facility] Hospitalrt: 10-15-2021 End: 50-72-4738yxdyfesnjgWuslix [facility] [employer] Other Start: 10-51-6755XL ONLINE E/M PHY VIRTUL 11-20Dana EasterFair[facility] Hospitaltart: 30-86-5188Fbpvhtmas encounterDana EastwoodB[facility] DESERT [facility] Hospitaltart: 09-30-2021 End: 52-48-0258xnxolmhenuGnjk Easterwood Other [employer] Other Start: 42-36-4966Behgwbocf encounterDana EasterwoodBANNER DESERT [facility] Hospitaltart: 09-04-2021 End: 19-97-1535gntlicemcsYehg Easterwood Other [employer] Other Start: 68-42-0691Cutumapbo encounterDana EasterFairmont Hospital and Clinic [facility] Hospitaltart: 09-03-2021 End: 20-89-4684rbyazwcdcsXMHJ [facility]AMED[facility] HOSPITALCoupOptioncooper county memorial hospital [employer] Other Start: 25-07-0476Pbhriu outpatient visit 25 minutes Leoncio [facility]: 09-01-2021 End: 73-79-3580cimtgwxjejVgxj Easterwood Other [employer] Other Start: 53-31-0379Ethbxewfq encounterDana EasterwoodB[facility]NER DESERT [facility] Hospitaltart: 07-30-2021 End: 33-23-7987btszzkbtnmTnqgu Rosanna Other [facility] [employer] Other Start: 07-77-3444Iyqwqg outpatient visit 15 minutes Heber QadirFPG Nephrology ClydeStart: 07-28-2021 End: 06-68-6031mglnqhrtdmXSOOU QADIRFacility:O4Rianw: 07-21-2021 End: 26-52-8347djbebgdsfwGGIFX QADIRFacility:F9Xkfpr: 07-09-2021 End: 53-58-1053kqyrvitbojTxvh Easterwood Other [facility] [employer] Other Start: 18-12-4009Ffmfwguat encounterDana HerbertSt. [facility] Family [facility] Centertart: 06-17-2021 End: 55-01-5078ewcnkhjptxDzmb Easterwood Other [facility] [employer] Other Start: 06-22-4902Agtrdhnuc encounterDana EastSt. [facility] Hospitaltart: 03-10-2021 End: 33-82-6340ffsjsradhaUypw Easterwood Other [employer] Other Start: 31-71-1814Uzpbunbws encounterDana EasterwoodBANNER DESERT [facility] Hospitaltart: 43-09-4513Kwxrwnbci encounterAbdul QadirFPG NephrologyStart: 24-98-0106Czhewpips encounterDana EastwoodBANNER DESERT MED[facility] Hospitaltart: 46-39-0354Wtpobg outpatient visit 25 minutesLaurieul QadirFPG Nephrology ClydeStart: 56-71-3002Gjwhu [facility] examinationFleming County Hospital Other [facility] [employer] Other Start: 06-29-2018 End: 57-52-1728Jcbpczojkd and management of inpatientHEATHER SCConejos County Hospitaltart: 06-25-2018 End: 28-27-7125Glzpslwtyc and management of inpatientBENJAMIN E Medical Center of the Rockiestart: 66-56-8034HqyfqthxgyEMPRZ KNIGHTFacility:[facility]ITALtart: 05-24-2017 End: 66-53-7375JaffqbtrsdYPRNEhtcmukw:[facility]ITALtart: 05-24-2017 End: 12-68-1651UcwmbnltggUQPKC KNIGHTFacility:[facility] Procedures DateProcedureProcedure DetailPerforming ClinicianStart: 14-93-3312LDPWIIMFC SPIROMETRY RTBENMONETLIZETH BALLStart: 69-84-9782KBCHJNIGF SPIROMETRY RTBENNICOLETTE WILLY Start: 87-96-2707JIYBGVEWP PATIENTBENNICOLETTE BALLStart: 45-02-5975XTYEQIPEA SPIROMETRY RTBENNICOLETTE BALLStart: 82-36-1220IVUW O2 EVAL (DESATURATION SCREEN) JHONATAN BALLStart: 82-43-5368VWPHZQMOC SPIROMETRY RTBENNICOLETTE BALLStart: 58-45-2577EMVKMFKB OXYGEN THERAPY PROTOCOLBENNICOLETTE BALLStart: 62-69-7094TQWDU OXIMETRY, OVERNIGHTBENNICOLETTE BALLStart: 60-47-3430FYPUYYIHJ SPIROMETRY RTBENMONETLIZETH BALLStart: 88-56-2727IJKBNSZPZ SPIROMETRY RTBENNICOLETTE BALLStart: 07-13-2018 INCENTIVE SPIROMETRY RTBENNICOLETTE AGUILERAStart: 10-17-7017DOGEJ OXIMETRY, OVERNIGHT JHONATAN BALLStart: 09-95-2313AMNYYMYQZ SPIROMETRY RTBENMONETLIZETH BALLStart: 88-72-8673MHSVHONOM SPIROMETRY RTBENMONETLIZETH BALLStart: 29-94-3254MEQGP OXIMETRY, OVERNIGHTBETAMMY BALLStart: 94-16-6594PGCBLMXDX SPIROMETRY RTBENNICOLETTE BALL Start: 05-11-9734JNLXTWERK SPIROMETRY RTBENJALIZETH BALLStart: 81-29-6957WJLLE CANNULA OXYGENBENJAMIN BALLStart: 64-87-6194NOXVQ OXIMETRY, OVERNIGHTBENJAMIN BALLStart: 04-17-3716DUDPVWWKC SPIROMETRY RTBENJAMIN BALLStart: 07-12-2018 INCENTIVE SPIROMETRY RTBENNICOLETTE BALLStart: 82-16-0428NMCAHWJMP SPIROMETRY RT JHONATAN BALLStart: 11-24-8932WXPXWVFTF SPIROMETRY RTBENJAMIN BALLStart: 25-13-3830AWZLWROWF SPIROMETRY RTBENJAMIN BALLStart: 21-55-9941GUIIJRJZL SPIROMETRY RTBENJALIZETH BALLStart: 56-64-5813DXTEGSFLJ SPIROMETRY RTBENJALIZETH BALL Start: 42-77-4083DDMZY OXIMETRY, OVERNIGHTBENJALIZETH BALLStart: 07-12-2018 INCENTIVE SPIROMETRY RTBENNICOLETTE BALLStart: 48-55-2489FWXRTBCM OXYGEN THERAPY PROTOCOLBENNICOLETTE BALLStart: 20-81-3074GWGAJRQBV SPIROMETRY RTBENJALIZETH BALLStart: 26-79-4771SLAQOXMER SPIROMETRY RTBENJALIZETH BALLStart: 78-70-4731CRNSYMQVP SPIROMETRY RTBENNICOLETTE BALLStart: 83-07-7277FKBWWMDYD SPIROMETRY RTBENJALIZETH BALL Start: 20-40-8268LHQZNBNES SPIROMETRY RTBENJALIZETH BALLStart: 24-98-0785RWSPBZVQN SPIROMETRY RTBENJALIZETH BALLStart: 20-59-9093TCDKSJXXY SPIROMETRY RTBENJAMIN BALL Start: 52-00-3715OQXIQZYMZ SPIROMETRY RTBENJAMIN BALLStart: 11-87-4565PKNRQ CANNULA OXYGENBENJAMIN BALLStart: 92-92-2202HCJFBBIFH SPIROMETRY RTBENJAMIN BALL Start: 39-68-2446ZVOFJSCQR SPIROMETRY RTBENJAMIN BALLStart: 96-03-3707ZAYVRVOTE SPIROMETRY RTBENJAMIN BALLStart: 73-40-8412RIPIOXLGQ SPIROMETRY RTBENJAMIN BALL Start: 37-60-9437FNUKMEKZF SPIROMETRY RTBENJAMIN BALLStart: 92-50-3985HGDBIYUFG SPIROMETRY RTBENJAMIN BALLStart: 21-74-2289UNMEOLQED SPIROMETRY RTBENJAMIN BALL Start: 45-96-0305VPCNELYB OXYGEN THERAPY PROTOCOLBENJAMIN BALLStart: 07-11-2018 INCENTIVE SPIROMETRY RTBENNICOLETTE BALLStart: 80-35-3140DWKXRTZMI SPIROMETRY RT JHONATAN BALLStart: 09-91-4842YISUOOGSE SPIROMETRY RTBENJALIZETH BALLStart: 13-47-2753FPORGKPEI SPIROMETRY RTBENNICOLETTE BALLStart: 81-14-5486SMTTOK GABRIEL JHONATAN BALLStart: 67-33-8314PRHGKHQHQ SPIROMETRY RTBENNICOLETTE BALLStart: 09-82-1959BNVJGKZMW SPIROMETRY RTBENJALIZETH BALLStart: 56-20-5458KZQBB CANNULA OXYGENBENJAMIN BALLStart: 73-17-0931WHSLXKKAN SPIROMETRY RTBENJALIZETH BALLStart: 71-85-8060KFPINWCEQ SPIROMETRY RTBENJALIZETH BALLStart: 22-85-9001ICWOUXVLK SPIROMETRY RTBENNICOLETTE BALLStart: 95-43-8981CIRNZYKDX SPIROMETRY RTBENNICOLETTE BALL Start: 73-35-8511HJIKNGRSJ SPIROMETRY RTBENNICOLETTE BALLStart: 60-03-0006BFYXFAZWU SPIROMETRY RTBENNICOLETTE BALLStart: 28-76-6121XVZOCELCH SPIROMETRY RTBENJALIZETH BALL Start: 54-99-9157BXUVDQIIL SPIROMETRY RTBENNICOLETTE BALLStart: 83-65-2548JAMYCELS OXYGEN THERAPY PROTOCOLBENNICOLETTE BALLStart: 24-80-1553XTUCYOXHD SPIROMETRY RT JHONATAN BALLStart: 47-53-4295TDIFEBCFC SPIROMETRY RTBENNICOLETTE BALLStart: 99-93-4003Bewvs of magnesiumBENNICOLETTE BALLStart: 04-21-0507Iztey metabolic panel calcium totalBENNICOLETTE BALLStart: 75-89-6623Mlein count complete auto&auto difrntl wbcBENJAMIN BALLStart: 07-97-8649KWIEBJQQF SPIROMETRY RTBENJAMIN BALL Start: 38-26-3013RTEPWZATR SPIROMETRY RTBENJAMIN BALLStart: 38-85-6999MNDKJOBTH SPIROMETRY RTBENJAMIN BALLStart: 38-09-2090ONCBVRAJV SPIROMETRY RTBENJAMIN BALL Start: 86-59-6702BLLXSFRDJ SPIROMETRY RTBENJAMIN BALLStart: 74-83-3647JCWZX CANNULA OXYGENBENJAMIN BALLStart: 89-16-5614WCKKUNSTY SPIROMETRY RTBENJAMIN BALL Start: 73-99-3108CNKNJAKKB SPIROMETRY RTBENJAMIN BALLStart: 96-17-6238NPFSZVWCV SPIROMETRY RTBENJAMIN BALLStart: 34-58-9269HCPIRNYLZ SPIROMETRY RTBENJAMIN BALL Start: 86-89-7719YSVNEGPUU SPIROMETRY RTBENJAMIN BALLStart: 42-19-1563ZAMTY FARHAD WRAPBENJAMIN BALLStart: 40-43-4934FFKYFIT EXTREMITYBENJAMIN BALLStart: 66-16-9024BORZFXUQU SPIROMETRY RTBENJAMIN BALLStart: 76-43-5772GPAYJROFC SPIROMETRY RTBENJAMIN BALLStart: 97-65-8830IFMOUAYTI SPIROMETRY RTBENJAMIN BALL Start: 50-05-6062PHPTAOKQ OXYGEN THERAPY PROTOCOLBENJAMIN BALLStart: 07-09-2018 INCENTIVE SPIROMETRY RTBENJAMIN BALLStart: 57-41-0432MCCJMNVRV SPIROMETRY RT JHONATAN BALLStart: 39-28-7009RVUPYADBV SPIROMETRY RTBENJAMIN BALLStart: 05-07-1442MQOVNYPWB SPIROMETRY RTBENJAMIN BALLStart: 68-56-6385ECNSBLKNA SPIROMETRY RTBENJAMIN BALLStart: 12-37-3432YLRALGHGK SPIROMETRY RTBENJAMIN BALL Start: 80-54-9366CUIPFNJIO SPIROMETRY RTBENJAMIN BALLStart: 82-17-6812RYILG CANNULA OXYGENBENJAMIN BALLStart: 44-23-9570EJXVRUZWN SPIROMETRY RTBENJAMIN BALL Start: 13-66-6230EQJFXCIJD SPIROMETRY RTBENJAMIN BALLStart: 38-43-4746CRXGLEWEL SPIROMETRY RTBENJAMIN BALLStart: 63-19-8166DIIDGANAP SPIROMETRY RTBENJAMIN BALL Start: 46-92-7929VREDZTVJO SPIROMETRY RTBENJAMIN BALLStart: 28-42-5914ZPZAMAKGB SPIROMETRY RTBENJAMIN BALLStart: 08-72-9266OCTWFUPA OXYGEN THERAPY PROTOCOL JHONATAN BALLStart: 16-55-7820LJUZSASCD SPIROMETRY RTBENJAMIN BALLStart: 21-39-1057KRBRUIEEQ SPIROMETRY RTBENJAMIN BALLStart: 15-34-6535ESRFEQQRR SPIROMETRY RTBENJAMIN BALLStart: 93-71-7178DSUXRAEHV SPIROMETRY RTBENJAMIN BALL Start: 92-47-6683KCSRPEEJF SPIROMETRY RTBENJAMIN BALLStart: 60-60-7032QYMXPGVSL SPIROMETRY RTBENJAMIN BALLStart: 57-52-5712ZLHEZUTTH SPIROMETRY RTBENJAMIN BALL Start: 11-06-7448RMJKY CANNULA OXYGENBENJAMIN BALLStart: 86-73-9678LXFRUODPE SPIROMETRY RTBENJAMIN BALLStart: 14-30-6009WQSWOVXOQ SPIROMETRY RTBENJAMIN BALL Start: 30-39-4660ELLGGNZZI SPIROMETRY RTBENJAMIN BALLStart: 44-51-0090NMIYIPCTE SPIROMETRY RTBENJAMIN BALLStart: 98-05-4404XBUYSPBTJ SPIROMETRY RTBENJAMIN BALL Start: 24-85-7910TEONWQRUO SPIROMETRY RTBENJAMIN BALLStart: 96-59-1636BRBLHWDBI SPIROMETRY RTBENJAMIN BALLStart: 64-47-0672XZLBOAVH OXYGEN THERAPY PROTOCOL JHONATAN BALLStart: 37-28-7777UBQNUUUGR SPIROMETRY RTBENJAMIN BALLStart: 61-72-8601YFXPINQVS SPIROMETRY RTBENJAMIN BALLStart: 45-54-0666GMQDGGSLZ SPIROMETRY RTBENJAMIN BALLStart: 14-49-8757VPPXTDXEU SPIROMETRY RTBENJAMIN BALL Start: 37-28-6259WAYORDQTI SPIROMETRY RTBENJAMIN BALLStart: 90-56-0713DRLANDFKS SPIROMETRY RTBENJAMIN BALLStart: 75-04-3333FCYAHZTFS SPIROMETRY RTBENJAMIN BALL Start: 60-61-5353WJLFIRCHZ SPIROMETRY RTBENJAMIN BALLStart: 65-84-8414MXHDX CANNULA OXYGENBENJAMIN BALLStart: 54-82-4434UVFPYMZNB SPIROMETRY RTBENJAMIN BALL Start: 81-96-9170WXUTBALOC SPIROMETRY RTBENJAMIN BALLStart: 10-65-6733IMNNNQGPZ SPIROMETRY RTBENJAMIN BALLStart: 59-01-5705GXPWNXMWB SPIROMETRY RTBENJAMIN BALL Start: 76-64-8582IFAOOVDUJ SPIROMETRY RTBENJAMIN BALLStart: 34-74-9419NNZTWOGKI SPIROMETRY RTBENJAMIN BALLStart: 26-87-2684BRRNMGCO OXYGEN THERAPY PROTOCOL JHONATAN BALLStart: 91-37-0696XCHGJUSKD SPIROMETRY RTBENJAMIN BALLStart: 79-28-4811AFUEQVSLG SPIROMETRY RTBENJAMIN BALLStart: 24-51-2191MBTYOLOFE SPIROMETRY RTBENJAMIN BALLStart: 85-34-0320IOAYJNTPA SPIROMETRY RTBENJAMIN BALL Start: 26-74-0615TECIMOACU SPIROMETRY RTBENJAMIN BALLStart: 03-87-8299ZFWKBVGST SPIROMETRY RTBENJAMIN BALLStart: 43-54-2211NTSIUQIGN SPIROMETRY RTBENJAMIN BALL Start: 04-48-5940JFASZ CANNULA OXYGENBENJAMIN BALLStart: 50-84-5230ZNUYJASOU SPIROMETRY RTBENJAMIN BALLStart: 16-94-2925LIJVALXTN SPIROMETRY RTBENJAMIN BALL Start: 10-89-4905WHWWABSXE SPIROMETRY RTBENJAMIN BALLStart: 85-13-2843YFRGLIKND SPIROMETRY RTBENJAMIN BALLStart: 28-99-2141RXKELRLVH SPIROMETRY RTBENJAMIN BALL Start: 86-25-2677LUJMMTAHC SPIROMETRY RTBENJAMIN BALLStart: 74-82-9359PHSLAOZSE SPIROMETRY RTBENJAMIN BALLStart: 92-92-9538RGPLRWWEI SPIROMETRY RTBENJAMIN BALL Start: 08-15-9142ZPGTCXBY OXYGEN THERAPY PROTOCOLBENJAMIN BALLStart: 07-05-2018 INCENTIVE SPIROMETRY RTBENJAMIN BALLStart: 62-30-4724SCUKPMDIF SPIROMETRY RT JHONATAN BALLStart: 56-87-9892PMEXMNFJQ SPIROMETRY RTBENJAMIN BALLStart: 09-00-4723JXXUEALBP SPIROMETRY RTBENJALIZETH BALLStart: 54-38-3394ZWRJEOSPC SPIROMETRY RTBENJALIZETH BALLStart: 47-63-8168PBETMGKQV SPIROMETRY RTBENJALIZETH BALL Start: 62-58-6879ESEETOQOB SPIROMETRY RTBENJAMIN BALLStart: 76-88-3626UTTME CANNULA OXYGENBENJAMIN BALLStart: 63-33-0367CDVTFBDXA SPIROMETRY RTBENJAMIN BALL Start: 30-43-3508BQRBERJTO SPIROMETRY RTBENJAMIN BALLStart: 99-93-7680DZIGEIVNM SPIROMETRY RTBENJAMIN BALLStart: 96-19-9272KOAAPLROQ SPIROMETRY RTBENJAMIN BALL Start: 54-58-3221PIDFWGLXL SPIROMETRY RTBENJAMIN BALLStart: 42-46-9727NAPXGWQDR SPIROMETRY RTBENJAMIN BALLStart: 26-64-1651DXNFUHIWI SPIROMETRY RTBENJAMIN BALL Start: 51-13-1680BQWDKYLK OXYGEN THERAPY PROTOCOLBENJAMIN BALLStart: 07-04-2018 INCENTIVE SPIROMETRY RTBENJAMIN BALLStart: 71-26-7246PNEHNKCMO SPIROMETRY RT JHONATAN BALLStart: 71-26-7938QZZYBREBQ SPIROMETRY RTBENJAMIN BALLStart: 79-41-1052REVGTDKSE SPIROMETRY RTBENJAMIN BALLStart: 39-76-7808IFUVFNMOZ SPIROMETRY RTBENJAMIN BALLStart: 34-16-3531RWVJOSQIK SPIROMETRY RTBENJAMIN BALL Start: 03-46-0710ARLUOTQCY SPIROMETRY RTBENJAMIN BALLStart: 26-47-8140YFEDGJYJY SPIROMETRY RTBENJAMIN BALLStart: 04-37-5448UGZND CANNULA OXYGENBENJAMIN BALL Start: 49-90-9210CQWHAFWUB SPIROMETRY RTBENJAMIN BALLStart: 19-22-6365MXYYKOXWH SPIROMETRY RTBENJAMIN BALLStart: 65-03-0219WUMLHEOKW SPIROMETRY RTBENJAMIN BALL Start: 13-19-6208IXRCXQTRZ SPIROMETRY RTBENJAMIN BALLStart: 44-19-4237VPCTPYZSZ SPIROMETRY RTBENJAMIN BALLStart: 60-21-1392HWRZNLXYK SPIROMETRY RTBENJAMIN BALL Start: 05-63-9607GUZUQBYYC SPIROMETRY RTBENJAMIN BALLStart: 76-31-9800EAUNAYWO OXYGEN THERAPY PROTOCOLBENJAMIN BALLStart: 44-04-5281JUGTSVUDB SPIROMETRY RT JHONATAN BALLStart: 44-22-6798ZBZUAUGSW SPIROMETRY RTBENJAMIN BALLStart: 71-85-2100FCVMCNBRT SPIROMETRY RTBENJALIZETH BALLStart: 50-85-9428ZKBGQAMGO SPIROMETRY RTBENJAMIN BALLStart: 19-83-2634WYQIGZJCW SPIROMETRY RTBENJAMIN BALL Start: 66-11-4854MZPXTYMMN SPIROMETRY RTBENJAMIN BALLStart: 87-88-8863UURNDYVCP SPIROMETRY RTBENJAMIN BALLStart: 47-66-1241BTIIAKSPW SPIROMETRY RTBENJAMIN BALL Start: 58-94-9143BPQKL CANNULA OXYGENBENJAMIN BALLStart: 98-38-9045SBOSBHCHC SPIROMETRY RTBENJAMIN BALLStart: 12-90-3888MKZLODAVJ SPIROMETRY RTBENJAMIN BALL Start: 76-41-9408CDZXSEBOB SPIROMETRY RTBENJAMIN BALLStart: 61-63-2900BIQHCUWFC SPIROMETRY RTBENJAMIN BALLStart: 62-70-2900MCAHGADAX SPIROMETRY RTBENNICOLETTE BALL Start: 50-94-0736CK CONSULT TO INFECTIOUS DISEASESBENNICOLETTE BALLStart: 07-02-2018 INCENTIVE SPIROMETRY RTBENNICOLETTE BALLStart: 02-45-5743WLAGNHLQH SPIROMETRY RT JHONATAN BALLStart: 15-93-3194JZYJRFJEK SPIROMETRY RTBENNICOLETTE BALLStart: 13-37-5648VSMFZUTX OXYGEN THERAPY PROTOCOLBENNICOLETTE BALLStart: 07-02-2018 INCENTIVE SPIROMETRY RTBENNICOLETTE BALLStart: 90-33-5561XMIGNKBIO SPIROMETRY RT JHONATAN BALLStart: 28-72-0792UUWYOHINY SPIROMETRY RTBENNICOLETTE BALLStart: 75-29-4646GDRUAZSQR SPIROMETRY RTBENNICOLETTE BALLStart: 89-89-7679BIUBNJHAS SPIROMETRY RTBENNICOLETTE BALLStart: 93-88-6446MYYHMHHVC SPIROMETRY RTBENNICOLETTE BALL Start: 87-76-5936NXZRUJOGQ SPIROMETRY RTBENNICOLETTE BALLStart: 21-18-6832NYVJN CANNULA OXYGENBENNICOLETTE BALLStart: 70-54-3754IAYKPHLEJ SPIROMETRY RTBENNICOLETTE BALL Start: 08-23-7533ANBRVYLFO SPIROMETRY RTBENNICOLETTE BALLStart: 52-99-3491DDOKAMDUQ SPIROMETRY RTBENNICOLETTE BALLStart: 12-33-8480DAFORCJBL SPIROMETRY RTBENNICOLETTE BALL Start: 65-76-7114ZSAUNUUIY SPIROMETRY RTBENNICOLETTE BALLStart: 12-53-2995GQOVVPVPG SPIROMETRY RTBENNICOLETTE BALLStart: 82-53-9926ECZJOWASU SPIROMETRY RTBENNICOLETTE BALL Start: 56-11-4811HDKYSOEDD SPIROMETRY RTBENNICOLETTE BALLStart: 74-50-2873JXLIOYLG OXYGEN THERAPY PROTOCOLBENNICOLETTE BALLStart: 25-93-2171JRLGNDAKJ SPIROMETRY RT JHONATAN BALLStart: 88-87-6062GJOLOHBEV SPIROMETRY RTBENNICOLETTE BALLStart: 31-89-8554Zrpaa count complete automatedBETAMMY BALLStart: 89-51-2588VHUEALRMW SPIROMETRY RTBENNICOLETTE BALLStart: 96-37-7034CWZAGQNNB SPIROMETRY RTBENNICOLETTE BALL Start: 15-35-8061AQHTUOVDL SPIROMETRY RTBENNICOLETTE BALLStart: 50-16-1339JZJDJU AND OUTPUTBENMONETMIN BALLStart: 78-47-1434ONZVGOEFB SPIROMETRY RTJHONATAN AGUILERAStart: 38-75-7935ENYRKHVLH SPIROMETRY RTBETAMMY AGUILERAStart: 42-51-2240DIEUYQLZO SPIROMETRY RTJHONATAN AGUILERAStart: 62-05-5098ZBCSL CANNULA OXYGENBETAMMY AGUILERA Start: 11-98-3108NREKJJJBS SPIROMETRY RTJHONATAN AGUILERAStart: 75-37-3568IZMLLQHEY SPIROMETRY RTBETAMMY AGUILERAStart: 52-80-3046VTCNHOIGR SPIROMETRY RTJHONATAN AGUILERA Start: 23-83-8411QMFZHHUHX SPIROMETRY RTJHONATAN AGUILERAStart: 73-69-8037XIZAAKEAF SPIROMETRY RTJHONATAN AGUILERAStart: 00-00-1176AZQLVOTVS SPIROMETRY RTJHONATAN AGUILERA Start: 04-84-9138BLDDYBTVI SPIROMETRY RTJHONATAN AGUILERAStart: 07-05-2082VZSWCBZMF SPIROMETRY RTJHONATAN AGUILERAStart: 64-99-8622PXQL GENERALBETAMMY AGUILERAStart: 21-81-4037XOHPFIENK DEEP BREATHING AND COUGHINGBETAMMY AGUILERAStart: 06-30-2018 FULL CODEBETAMMY AGUILERAStart: 26-34-8063DG CONSULT TO CASE MANAGEMENTBEGoldyNICOLETTE AGUILERAStart: 13-54-7268DJ CONSULT TO HOSPITALISTBEGoldyNICOLETTE AGUILERAStart: 29-88-2886ME CONSULT TO RECREATION THERAPYBETAMMY AGUILERAStart: 33-92-0090WQ EVAL AND TREAT JHONATAN Start: 71-83-1246AYSZI INTERMITTENT PNEUMATIC COMPRESSION DEVICE JHONATAN Start: 69-65-0433LP EVAL AND TREATMARCELLANICOLETTE AGUILERAStart: 06-30-2018 PULSE OXIMETRY SPOT CHECKBETAMMY AGUILERAStart: 03-51-1364AQHFBZ FOR NO CHEMICAL VTE PROPHYLAXISBENNICOLETTE AGUILERAStart: 36-63-3990BEHH PRECAUTIONSBETAMMY AGUILERAStart: 56-73-8552HWBTUULPR SPIROMETRY RTJHONATAN AGUILERAStart: 43-74-3649VGDROZAM OXYGEN THERAPY PROTOCOLBETAMMY AGUILERAStart: 57-99-9530GJDULL AND OUTPUTBETAMMY AGUILERA Start: 35-05-4707ZHTWQPD WEIGHTBETAMMY AGUILERAStart: 97-27-2485ZMFSLSD STATUS (DIRECT)JHONATAN AGUILERAStart: 45-47-5954CIZPSW AND REPLACE ANJELICA MENDOSA DAILYBENJAMIN BALLStart: 68-48-0323EONN PATIENTBETAMMY AGUILERAStart: 77-84-0357XYLDE SIGNS JHONATAN AGUILERAStart: 29-36-8769RNSTG WEIGHTSJHONATAN BALLStart: 63-99-3401CU CONSULT TO HOSPITALISTJHONATAN AGUILERAStart: 25-86-4041Axqizdd bacterial quanttative colony count urineBETAMMY AGUILERAStart: 79-40-5708Depdn dip stick/tablet rgnt auto w/o microscopyBETAMMY BALLStart: 46-83-9500EA EVAL AND TREATBETAMMY BALLStart: 18-30-9467TR EVAL AND TREATBETAMMY AGUILERAStart: 61-06-3248VNZZB CANNULA OXYGENBETAMMY AGUILERAStart: 93-93-9222XNEDS CANNULA OXYGEN JHONATAN AGUILERAart: 35-72-8053GSEIMSMPH MONITORINGBETAMMY AGUILERAart: 06-29-2018 ADVANCE DIET TOLERATED (NURSING COMMUNICATION)JHONATAN AGUILERAart: 06-29-2018 AMBULATE PATIENTBETAMMY BALLStart: 61-82-3173OKOEXHHM WITH ASST DEVICEBETAMMY BALLStart: 99-31-6560XSQCIYJ HOBJHONATAN BALLStart: 60-09-1213EBPUJ/VASCULAR CHECKSBETAMMY BALLStart: 00-58-0646HDYNEH PHYSICIAN (SPECIFY)JHONATAN AGUILERA Start: 99-32-1281CCXSJIJ COMMUNICATIONBEGoldyNICOLETTE AGUILERAStart: 10-24-4192WARNVAL CESSATION EDUCATIONBEGoldyNICOLETTE BALLStart: 42-06-4283GKYCEICG OXYGEN THERAPY PROTOCOLBEGoldyNICOLETTE AGUILERAStart: 40-70-0018MLAABS AND OUTPUTBETAMMY BALLStart: 16-87-9415SBTVH CANNULA OXYGENBETAMMY BALLStart: 00-86-8755Bnufc metabolic panel calcium totalBETAMMY BALLStart: 86-50-1402Nynkj count complete automated JHONATAN AGUILERAStart: 72-73-0428ZFKR GENERALBETAMMY BALLStart: 97-13-6206VLDELKB HOBJHONATAN BALLStart: 29-44-1549PDCYS CANNULA OXYGENBETAMMY BALLStart: 64-17-1907BUUBQTTI OXYGEN THERAPY PROTOCOLBETAMMY BALLStart: 09-00-0543IR EVAL AND TREATBENNICOLETTE BALLStart: 78-68-6195QP EVAL AND TREATBENNICOLETTE BALLStart: 57-38-3297SKLSWS AND OUTPUTBENMONETMIN BALLStart: 13-65-7060AAEUFUOD PATIENT JHONATAN BALLStart: 86-22-4351SSQEAJL COMMUNICATIONBETAMMY BALLStart: 44-80-9559RL EVAL AND TREATBENNICOLETTE BALLStart: 85-63-9252DPOCVBHD WITH ASST DEVICEBENNICOLETTE BALLStart: 04-21-0527SL EVAL AND TREATBENNICOLETTE BALLStart: 99-75-9424KB EVAL AND TREATBENNICOLETTE BALLStart: 32-47-1626WG CONSULT TO REHAB/TCU ADMISSION COORDINATORBEGoldyNICOLETTE BALLStart: 20-22-6037YGFICKBM OXYGEN THERAPY PROTOCOLBETAMMY BALLStart: 73-77-4677Fypci metabolic panel calcium total JHONATAN BALLStart: 28-92-4812Fqvir count complete automatedJHONATAN BALLStart: 81-49-0390Mmpz bld gluc mntr dev cleared fda spec home useBENNICOLETTE BALLStart: 03-28-4715FNBEAP AND OUTPUTBENNICOLETTE BALLStart: 04-62-0839Qlby tthrc r-t 2d w/wom-mode compl spec&colr dBENNICOLETTE BALLStart: 56-57-5716Auqjg metabolic panel calcium totalBETAMMY BALLStart: 47-72-1405Cfwgp count complete automated JHONATAN BALLStart: 92-06-8718SKZVARHOR MONITORINGBETAMMY BALLStart: 06-26-2018 INITIATE OXYGEN THERAPY PROTOCOLBETAMMY BALLStart: 37-15-9114YUCWRLO STATUS (FROM ED OR OR/PROCEDURAL)JHONATAN BALLStart: 15-50-5162CKLDSJNQ PATIENTBENNICOLETTE BALLStart: 93-25-1360WIAFA WEIGHTSBETAMMY BALLStart: 65-31-5724FMJKDK AND OUTPUTBENNICOLETTE BALLStart: 23-40-3835GTXLYUA DIET TOLERATED (NURSING COMMUNICATION)JHONATAN BALLStart: 38-57-2671YUSACZM HOBBETAMMY BALLStart: 43-83-3034ACEB CODEBETAMMY BALLStart: 13-16-4592JBYEIXNG OXYGEN THERAPY PROTOCOLBENNICOLETTE BALLStart: 01-60-3735LGYZCN AND OUTPUTBEMILLERLIZETH BALLStart: 13-51-6344TYJTT/VASCULAR CHECKSBEMILLERLIZETH BALLStart: 31-07-7303ZTISHPD COMMUNICATIONBEGoldyNICOLETTE BALLStart: 59-14-7492SERCOOZ STATUS (DIRECT)JHONATAN WILLY Start: 46-83-2496VILIP INTERMITTENT PNEUMATIC COMPRESSION DEVICEBETAMMY AGUILERA Start: 96-26-6525SFMEWNJ CESSATION EDUCATIONBEMILLERLIZETH BALLStart: 02-07-2911NTWNM SIGNSBEMILLERLIZETH BALLStart: 64-35-9506Hob routine ecg w/least 12 lds w/i&rBENNICOLETTE Start: 47-54-1975Faymaycqte exam chest 2 viewsBETAMMY Start: 06-25-2018 NOTIFY PHYSICIAN (SPECIFY)JHONATAN AGUILERAStart: 08-99-6343AZXCOB FOR NO MECHANICAL VTE PROPHYLAXISBETAMMY BALLStart: 18-45-1336GIQOSTF STATUS (FROM ED OR OR/PROCEDURAL)JHONATAN AGUILERAStart: 00-17-6046Mde spinal canal cervical w/o contrast matrlMARIAMALIZETH Start: 06-12-8659Exxsf spine cervical 4 or 5 views JHONATAN Start: 17-27-7586Ouvdv count complete auto&auto difrntl wbcBEMILLERLIZETH BALLStart: 50-89-5534Hopqfhpozmqwf metabolic panelBEMILLERLIZETH BALLStart: 46-72-7207Yzqoyivdngo timeBEMILLERLIZETH BALLStart: 16-08-9834Nlqnmdhsq mammography Leoncio [facility] Other Screening for malignant neoplasm of breastDana [facility] Other Screening for malignant neoplasm of colonDana [facility] Other Plan of Treatment DateCare ActivityDetailAuthorStart: 01-31-2025 End: 70-04-0487Uceojke encounter huajmwcbs38/16/2025 2:40 PM EDT Office Visit STEFANIE SALAS [address] [place] [address] Mahogany Roy NP [address] [place] [address] STEFANIE DAWNtart: 09-05-2024 End: 39-31-2341Iaeaspv encounter procedureNOMS [facility] ROUTEComment on above:Arrived Immunizations Immunization DateImmunizationNotesCare GtydlpimBeurjblr77-79-3646EAPPL-85 mRNA, Comirnaty (Pfizer)[facility]03-23-2021Do not use COVID-19 Pfizer 2 doseDana [facility] Other [facility]03-01-2021Do not use COVID-19 Pfizer 2 doseDana Easterdraper Other [facility]09-28-2017diphtheria, tetanus toxoids and acellular pertussis vaccine, unspecified formulationDana [facility] Other [facility] Payers DatePayer CategoryPayerPolicy [id number] MEDICARE ADVANTAGE [id number] 2..1.522710.3.57[id number] 2.1.748271.3.57[id number] 2.16.840.1.974175.3.57[id number] 2.16.840.1.884611.3.57[id number] 2.16.840.1.194870.3.57[id number] 2.16.840.1.070858.3.57[id number] 2.16.840.1.752360.3.57[id number] 2.16.840.1.240312.3.57[id number] 2.16.840.1.389757.3.57[id number] 2.16.840.1.31[id number] 2.16.840.1.040751.3.579.2.531 Social History DateTypeDetailFacilityUnknown if ever smokedBronson RealtyAPX Other Start: 02-27-2024 End: 15-73-6712Ezf Assigned At [facility] Other Start: 10-15-2021 End: 87-94-8758Xkqubit smoking status NHISEx-smoker (finding)[facility]art: 71-93-9074Vwh [facility] At [facility] Andersontart: 21-08-5744Njtlsjj smoking status NHISNever smoked tobacco [facility] HealthcareStart: 75-98-2449Madgtla use and exposureSmokeless tobacco non-userNOMS HealthcareStart: 02-27-2024 End: 86-50-8017Itisbuhny beverage intakeLifetime non-drinker (finding)[facility] HealthcareStart: 02-27-2024 End: 93-52-9982Vpicxox of Social functionACADIA HEALTHCARE HealthcareStart: 67-89-1351Vdk assigned at birthNot on fileLakeland Regional HospitalStart: 58-60-9523LqsQaeyga (finding) [facility] Clinical Notes 01-22-2021 to 09-05-2024 Note Date & LbrzMhhoDmytdmbv81-80-1321 History of Present illness Narrative* CASSIE King - 09/05/2024 2:40 PM EDT Images from the original note were not included. No chief complaint on file. Subjective Mare Garcia, 78 y.o., female Memory Impairment She just starting taking the increased dose of memantine 2 weeks ago and needs a refill They state that her memory has not changed much since last seen. They are having difficulty feeding her, she has trouble swallowing She is incontinent and dependent on family for ADLs. She is primarily nonverbal and is nonambulatory. Family admis that they have a lift in the home to help with transfers. Denies falls. Mood has been okay. States crying episodes resolved with citalopram. She is eating and sleeping well. Family assist with feeding at meal times. Family admit to hospice services for a couple of weeks and state that they opted not to continue this. Admits to palliative care and a nurse visit monthly currently. Son admits that she is more stiff in her extremities. Review of Systems Constitutional: Negative for appetite change, fatigue and fever. Respiratory: Positive for wheezing. Negative for cough and shortness of breath. Cardiovascular: Negative for chest pain, palpitations and leg swelling. Gastrointestinal: Negative for abdominal pain, constipation, diarrhea and nausea. Musculoskeletal: Positive for gait problem. Negative for arthralgias and myalgias. Admits to increased stiffness of the upper and lower extremities. Neurological: Negative for dizziness, tremors, numbness and headaches. Positive for memory impairment ROS is taken per the patients spouse and son who accompany her to her appointment today. Past Medical History: Diagnosis Date Abnormal Pap smear of vagina High blood pressure (CMS/HCC) Osteoporosis (CMS/HCC) No past surgical history on file. Family History Problem Relation Name Age of Onset Depression Father Social History Tobacco Use Smoking status: Never Smokeless tobacco: Never Substance Use Topics Alcohol use: Never Allergies: Patient has no known allergies. There were no vitals filed for this visit. There is no height or weight on file to calculate BMI. Neurologic exam: Mental status: Obese, in no acute distress. Flat affect. Grossly oriented to person. Memory is impaired. Previous MOCA - likely worse now although I don't believe the patient would be able to complete the test. No verbal output. Attention attention seemingly normal , concentration abilities difficult to assess. Fund of knowledge is unable to be assessed. Cranial nerves: CN II: Visual acuity is normal. Visual lu full to confrontation. CN III, IV, : pupils equal round and reactive to light. Extraocular movements intact. No ptosis present. CN V: Facial sensation is normal. CN VII: Full and symmetric facial movement. CN VIII: Hearing is intact. CN IX and X: X CN XI: Shoulder shrug is normal bilaterally. CN XII: X Motor: Strength is at least 3/5 throughout, in a wheelchair. Bulk is normal. Increased tone t/o upper and lower extremities, unclear how much of this relates toresistance versus deconditioning. Sensory: Sensation is intact to light touch throughout distal extremities. Reflexes: RUE biceps reflex 1+ , brachioradialis reflex 1+. LUE biceps reflex 1+, brachioradialis reflex 1+. RLE knee reflex 0 LLE knee reflex 0 Stovall's Sign negative. Coordination: Unable to follow directions for finger to nose testing. Gait: Wheelchair Review and summary of old records: MRI brain w/wo contrast from 10/16/20: Moderate global atrophy. Minimal white matter microangiopathy.No acute processes. No evidence of prior infarct. Labs from 10/16/20: TSH 1.495; BMP with impaired renal function, Cr 1.41, GFR 36; B12 324 MOCA at [facility] 09/25/20: . Assessment/Plan Diagnoses and all orders for this visit: Late onset Alzheimer's disease with behavioral disturbance (CMS/HCC) The patient has memory impairment which is most likely consistent with Alzheimer's type dementia. MOCA in 2020 was 17. B12 and TSH were normal. MRI brain with global age-related atrophy otherwise unremarkable. We attempted higher doses of Aricept but the maximum the patient can tolerate is 5 mg daily. She also continues on memantine. The family admit to progressive memory and physical decline and the patient is primarily nonverbal and non ambulatory. The family admits to monthly nurse visitsthrough palliative care but decline home health services or hospice care. I discussed weaning aricept and family declined. Patient is tolerating increased Namenda dose. PLAN: - Continue donepezil to 5 mg daily at bedtime for now although I don't think this has much benefit at this point. We did discuss discontinuation (the family declined). - Continue memantine 10 mg PO BID for memory - Discussed PT to help with mobility this was deferred per family request at this time. - The patient does not drive - Given difficulties with transportation we will continue 6 month follow up. Family encouraged to call with any changes/concerns. - It has been previously discussed possible respite stays versus consideration to alternative placement given her decline though the family does not wish to proceed with this at this time. Mood disturbance Patient had significant mood disturbance associated with her dementia which led to frequent crying spells. Since starting citalopram there have been no more crying spells and the family denies any other behavioral concerns. Previous concern voiced by family related to possible side effects of this medication relating to her heart. EKG previously offered but declined. PLAN: - Continue citalopram 10 mg by mouth daily - Follow closely with PCP Paroxysmal atrial fibrillation (CMS/HCC) Patient has a history of hypercoagulable disorder and is on blood thinning medication (Xarelto) andcertainly fall risk is important here as is the possibility of a vascular dementia. Brain MRI only showed minimal white matter changes. PLAN: - Continue close follow up with PCP Gait instability The patient is no longer ambulatory and uses a wheelchair. Follow up in 6 months or sooner if symptoms worsen, fail to improve, or should a new neurological concern arise. Pt has been fully educated on their diagnosis, treatment options, follow up plan, and return instructions Mimi Quispe PA-C documented in this encounterLakeland Regional [id number] History of Present illness Narrative* Luke Dixon NP - 02/27/2024 2:20 PM EST Images from the original note were not included. Chief Complaint Patient presents with Alzheimer's Disease Gait Problem Atrial Fibrillation Subjective Mare Garcia, 78 y.o., female Patient is here for follow up to memory impairment. She is accompanied today by her with whom she lives and her son. They state that her memory has not changed much since last seen. She is incontinent and dependent on family for ADLs. She is primarily nonverbal and is nonambulatory. Family admis that they have a lift in the home to help with transfers. Denies falls. Mood has been okay. States crying episodes resolved with citalopram. She is eating and sleeping well. Family assist with feeding at meal times. Family admit to hospice services for a couple of weeks and state that they opted not to continue this. Admits to palliative care and a nurse visit monthly currently. Son admits that she is more stiff in her extremities. Denies further concern today. Review of Systems Constitutional: Negative for appetite change, fatigue and fever. Respiratory: Positive for wheezing. Negative for cough and shortness of breath. Cardiovascular: Negative for chest pain, palpitations and leg swelling. Gastrointestinal: Negative for abdominal pain, constipation, diarrhea and nausea. Musculoskeletal: Positive for gait problem. Negative for arthralgias and myalgias. Admits to increased stiffness of the upper and lower extremities. Neurological: Negative for dizziness, tremors, numbness and headaches. Positive for memory impairment ROS is taken per the patients spouse and son who accompany her to her appointment today. Past Medical History: Diagnosis Date Abnormal Pap smear of vagina High blood pressure ([facility]) Osteoporosis ([facility]) History reviewed. No pertinent surgical history. Family History Problem Relation Name Age of Onset Depression Father Social History Tobacco Use Smoking status: Never Smokeless tobacco: Never Substance Use Topics Alcohol use: Never Allergies: Patient has no known allergies. Vitals: 02/27/24 1425 BP: 131/66 Pulse: 56 There is no height or weight on file to calculate BMI. Neurologic exam: Mental status: Obese, in no acute distress. Flat affect. Grossly oriented to person. Memory is impaired. Previous MOCA 17/30 - likely worse now although I don't believe the patient would be able to complete the test. Limited verbal output. Attention attention seemingly normal , concentration abilities difficult to assess. Fund of knowledge is unable to be assessed. Cranial nerves: CN II: Visual acuity is normal. Visual lu full to confrontation. CN III, IV, : pupils equal round and reactive to light. Extraocular movements intact. No ptosis present. CN V: Facial sensation is normal. CN VII: Full and symmetric facial movement. CN VIII: Hearing is intact. CN IX and X: Palate elevates symmetrically. CN XI: Shoulder shrug is normal bilaterally. CN XII: Tongue is midline without atrophy or fasciculation. Motor: Strength is at least 3/5 throughout, in a wheelchair. Bulk is normal. Increased tone t/o upper and lower extremities, unclear how much of this relates toresistance versus deconditioning. Sensory: Sensation is intact to light touch throughout distal extremities. Reflexes: RUE biceps reflex 1+ , brachioradialis reflex 1+. LUE biceps reflex 1+, brachioradialis reflex 1+. RLE knee reflex 0 LLE knee reflex 0 Stovall's Sign negative. Coordination: Unable to follow directions for finger to nose testing. Gait: Wheelchair Review and summary of old records: MRI brain w/wo contrast from 10/16/20: Moderate global atrophy. Minimal white matter microangiopathy.No acute processes. No evidence of prior infarct. Labs from 10/16/20: TSH 1.495; BMP with impaired renal function, Cr 1.41, GFR 36; B12 324 MOCA at [facility] 09/25/20: 1730. Assessment/Plan Diagnoses and all orders for this visit: Late onset Alzheimer's disease with behavioral disturbance (CMS/HCC) The patient has memory impairment which is most likely consistent with Alzheimer's type dementia. MOCA in 2020 was 17/30. B12 and TSH were normal. MRI brain with global age-related atrophy otherwise unremarkable. We attempted higher doses of Aricept but the maximum the patient can tolerate is 5 mg daily. She also continues on memantine. The family admit to progressive memory and physical decline and the patient is primarily nonverbal and non ambulatory. The family admits to monthly nurse visitsthrough palliative care but decline home health services or hospice care. PLAN: - Continue donepezil to 5 mg daily at bedtime for now although I don't think this has much benefit at this point. We did discuss discontinuation (the family states they will consider this). - Continue memantine 10 mg PO BID - Discussed PT to help with mobility this was deferred per family request at this time. - The patient does not drive - We discussed sleep hygiene, brain stimulation, physical activity, and compensatory memory techniques. - Given difficulties with transportation we will continue 6 month follow up. Family encouraged to call with any changes/concerns. - We have discussed possible respite stays versus consideration to alternative placement given her decline though the family does not wish to proceed with this at this time. Mood disturbance Patient had significant mood disturbance associated with her dementia which led to frequent crying spells. Since starting citalopram there have been no more crying spells and the family denies any other behavioral concerns. Previous concern voiced by family related to possible side effects of this medication relating to her heart. EKG previously offered but declined. PLAN: - Continue citalopram 10 mg by mouth daily - Follow closely with PCP Paroxysmal atrial fibrillation (CMS/HCC) Patient has a history of hypercoagulable disorder and is on blood thinning medication (Xarelto) andcertainly fall risk is important here as is the possibility of a vascular dementia. Brain MRI only showed minimal white matter changes. PLAN: - Continue close follow up with PCP Gait instability The patient is no longer ambulatory and uses a wheelchair. Follow up in 6 months or sooner if symptoms worsen, fail to improve, or should a new neurological concern arise. Pt has been fully educated on their diagnosis, treatment options, follow up plan, and return instructions documented in this encounterLakeland Regional [id number] Evaluation note* Encounter Date Diagnosis Assessment Notes Treatment Notes Treatment Clinical Notes Apr, HTN (hypertension), benign (ICD- 10 - I10) [facility] Other 01-16-2024 Evaluation note* Encounter Date Diagnosis Assessment Notes Treatment Notes Treatment Clinical Notes Apr, HTN (hypertension), benign (ICD- 10 - I10) [facility] Other 07-17-2023 Evaluation note* Encounter Date Diagnosis Assessment Notes Treatment Notes Treatment Clinical Notes Oct, History of venous thrombosis ( D-10 - Z86.718) [facility] Other 03-28-2023 Evaluation note* Encounter Date Diagnosis Assessment Notes Treatment Notes Treatment Clinical Notes Jun, Wheezes (ICD-10 - R06.2) [facility] Other 03-13-2023 Evaluation note* Encounter Date Diagnosis Assessment Notes Treatment Notes Treatment Clinical Notes Jun, Unable to ambulate (ICD-10 - R26 .2) Wheelchair bound exclusively. is agreeable to physical therapy services within the home. Heis very discouraged as she used to stand assisted at the sink for dwayne care, hygiene, toothbrushing, however she now just tries to lower herself to the ground and sit as she is too weak/unmotivatedto stand on her own. Jun,Localized edema (ICD-10 - R60.0)She does have substantial edema to the bilateral feet. At this time diuresis seems to not be an option for the . While we do need to get some of the fluid off, I do feel that diuretics for herwould only worsen her skin condition and lead to breakdown/wounds. I did discuss with them compliance with compression stockings. Jun,ysphagia, unspecified type (ICD-10 - R13.10)Currently without crackles to the lung bases. The possibility of aspiration is still there even without the overt presentation of pneumonia. Did discuss occupational therapy/speech therapy within thehome for swallowing evaluations and possibly facilitating implementation of thickened liquids. is agreeable today. Jun,lzheimer's disease, unspecified (ICD-10 - G30.9)Discussed natural progression of the disease. Discussed emotional support and motivational support for family members. Family is very much against placement into a correction facility. I do understand their concerns for this from a financial and emotional standpoint. I did make him aware that I am concerned with her declining. We need to weigh the risks and benefits of a correction facility with [id number] care. I am hopeful that once nursing and therapies are within the home, they can evaluate further and if placement is warranted, we can facilitate the transition. Jun,Incontinence in female (ICD-10 - R32)Did discuss the stool and urine incontinence. Again this is secondary to the cognitive dysfunction however we may be able to get her onto a toileting regimen through occupational/physical therapy services. Daughter asks for Fowler catheter as she feels this would make it much easier on the family members if she had this instead of depends as depends or expensive. I did explain that there is serious infection and risks associated with catheter use long-term. Again this is something we will let the rapy and nursing evaluate within the home and discuss further. Jun,Wejen (ICD-10 - R53.1)Discussed her weakness today. Family declines labs for further evaluation. Again ordering physical therapy for at home services and evaluation for placement if needed. I am interested in hearing recommendations in regards to DME equipment for the home. Jun,Other*Progress note was completed with the assistance of voice recognition software for dictation purposes. Please excuse any grammatical errors that were not corrected during review process.For documentation purposes, patient does not appear disheveled, unkempt, or exhibit signs of physica l/emotional abuse. She does have scattered bruising which is to be expected on the Xarelto. She is wearing weather appropriate clothing and does have a blanket on her today. Her promptly arises to put her coat on for her and cover her up with a blanket when the visit ends. She responds to him and her daughter well without hesitation or display of fear. speaks about her in a patient and endering way. [facility] Other 01-18-2023 Evaluation note* Encounter Date Diagnosis Assessment Notes Treatment Notes Treatment Clinical Notes Apr, HTN (hypertension), benign (ICD- 10 - I10) [facility] Other 09-06-2022 Evaluation note* Encounter Date Diagnosis Assessment Notes Treatment Notes Treatment Clinical Notes Dec, Vitamin D deficiency (ICD-10 - E 55.9) [facility] Other 07-26-2022 Evaluation note* Encounter Date Diagnosis Assessment Notes Treatment Notes Treatment Clinical Notes Oct, HTN (hypertension), benign (ICD- 10 - I10) [facility] Other 07-18-2022 Evaluation note* Encounter Date Diagnosis Assessment Notes Treatment Notes Treatment Clinical Notes Oct, History of venous thrombosis (IC D-10 - Z86.718) [facility] Other 07-05-2022 Evaluation note* Encounter Date Diagnosis Assessment Notes Treatment Notes Treatment Clinical Notes Oct, Hospital discharge follow-up ( D-10 - Z09) Hospital admission, diagnostic imaging, labs, medications, diagnoses and discharge plan discussed with patient today in office. Abnormal DI/labs requiring follow-up include: Renal Function and XRAY of chestReferrals to specialties include: Home Health Oct,ulmonary congestion (ICD-10 - R09.89)Discussed findings on x-ray more consistent with underlying congestive heart failure rather than pneumonia. We will need to follow-up on this issue in the next 7 to 10 days.She will require echo if this is the case.Is not currently taking diuretics or seeing cardiology. Oct,OVID (ICD-10 - U07.1)Discussed COVID treatment today, resumption of Xarelto at previous dose. Watch for signs and symptoms of DVT/PE. Fatigue can be caused by several underlying pathologies including COVID. Monitor respiratory status closely and watch for fevers. Oct,ysphagia (ICD-10 - R13.10)Having difficulty swallowing pills. I will order occupational therapy and home as well as physical therapy in home health nursing for further evaluation and treatment. Oct,Weakness (ICD-10 - R53.1)Patient is ambulating minimally with walker and standby assist from family which is actually improvement over last week. She still requires physical therapy within the home for further evaluation and treatment. This is a very difficult situation as patient is becoming too much for her family to care for however they do not want her to Reside outside of the home.Daughter asks if catheter placementis appropriate as she urinates frequently and They cannot seem to get her up to bedside commode that often.I did explain that there are risks as well as benefits to catheter placement. I would like home health nursing and physical therapy to see her for the next week to evaluate further.We will address this at her follow-up. Oct,therDaughter does ask about follow-up in 7 to 10 days. States she is concerned that they will not even be able to get her in the car to come to a visit. I can do a virtual visit for follow-up however if she is becoming that dependent on others, we do need to have a serious conversation regarding her saf ety and possible Placement outside of the home. Much motivational and emotional support given today.*Progress note was completed with the assistance of voice recognition software for dictation purposes. Please excuse any grammatical errors that were not corrected during review process. [facility] Other 07-01-2022 History general Narrative - Reported* Type Description Date Medical History Vitamin D deficiency Medical HistoryIncontinence of urine in femaleMedical HistoryStage 3b chronic kidney diseaseMedical HistoryCOVID 10/2021Medical HistorySkin growthMedical HistoryHTN (hypertension)Medical HistoryHistory of DVT (deep vein thrombosis) Medical HistoryOsteoporosisMedical HistoryHx of cervical cancerMedical History Alzheimers diseaseMedical HistoryPulmonary congestionMedical HistoryChronic embolism and thrombosis of left femoral veinMedical HistoryVenous insufficiency (chronic) (peripheral)Medical HistoryMixed incontinenceMedical History Paresthesia of skinMedical HistoryEpistaxisMedical HistorySpondylosis without myelopathy or radiculopathy, cervical regionMedical HistorySpondylosis without myelopathy or radiculopathy, lumbar regionMedical HistoryHistory of falling Medical HistoryMemory deficitMedical HistoryFull incontinence of fecesMedical HistoryThyroid dysfunctionMedical HistoryUrinary incontinence without sensory awarenessMedical HistoryKidney massMedical HistoryKidney cystsMedical History HypomagnesemiaMedical HistoryUnable to ambulateSurgical HistoryCervical cancer 2005Surgical HistoryNeck [id number] History4 childbirths-vaginal Surgical HistoryHysterectomySurgical HistoryRight side of thyroid removed Hospitalization HistorySee aboveHospitalization HistoryFR 10/15-10/18 COVID [id number] [facility] Other 06-30-2022 Evaluation note* Encounter Date Diagnosis Assessment Notes Treatment Notes Treatment Clinical Notes Sep, Weakness (ICD-10 - R53.1) Discussed the possibilities of aspiration pneumonia, COVID, heart failure with respiratory failure,UTI with urosepsis, TIA/stroke, acute renal failure, rhabdo, etc.. Discussed that all of these issues need to be evaluated In a timely fashion and cannot wait for Home health to evaluate her in 2 to 3 days when they can finally have her be seen. I explained at length that home health is not appropriate at this time as patient has declined rapidly in 2 days from her baseline. I urged them to call the squad. Family says the squad will take her to [facility] and they do not care for [facility]. I encouraged them then to get her in the car and take her to [facility]. They state they cannot even sit her upright. Again then she needs to be taken by squad immediately. Daughter verbalizes understanding and will call now. *Progress note was completed with the assistance of voice recognition software for dictation purposes. Please excuse any grammatical errors that were not corrected during review process. I have spent 13 minutes with this patient and over 50% of the visit was counseling done by myself, Leoncio ADDISON-Raymon. Sep,Wheezes (ICD-10 - R06.2) Sep,ltered level of consciousness (ICD-10 - R40.4) Sep,Urinary incontinence, unspecified type (ICD-10 - R32) [facility] Other 06-15-2022 Evaluation note* Encounter Date Diagnosis Assessment Notes Treatment Notes Treatment Clinical Notes Sep, Vitamin D deficiency (ICD-10 - E 55.9) [facility] Other 05-19-2022 Evaluation note* Encounter Date Diagnosis Assessment Notes Treatment Notes Treatment Clinical Notes August, Edema of left foot (ICD-10 - R60 .0) History of blood clot to left foot. Patient struggles with compliance in regards to elevation and compression. Has been itching however does not appear to require steroid or antibiotic, is not cellulitic. Stat venous duplex ordered for left lower extremity. I will call patient daughter with the results. I called [facility] radiology department myself to obtain fax number for order and schedule her appointment at radiology for 7 PM this evening. Daughter verbalizes understanding and does have appointment written down. August,History of blood clots (ICD-10 - Z86.718)Does not have IVC filter and has never followed with vascular. Has not had concerns since last August which had completely resolved x1 year. Patient does have strong pulses and no ulcerations. No noted cyanosis or need for emergency evaluation. Patient actually denies substantial pain. We will call with results. May not be a bad idea to refer to vascular onetime for consultation. I again encourage the use of lotion, compression stockings and elevation of legs when possible. August,ther*Progress note was completed with the assistance of voice recognition software for dictation purposes. Please excuse any grammatical errors that were not corrected during review process. [facility] Other 04-14-2022 Evaluation note* Encounter Date Diagnosis Assessment Notes Treatment Notes Treatment Clinical Notes Jul, Chronic kidney disease, stage 3 unspecified (ICD-10 - N18.30) She has CKD due to HTN . Her Serum Creatinine fluctuates 1.1-1.4 mg/dl. She has no evidence of Hematuria and Proteinuria. I discussed with her the importance of good HTN control to slow down the progression of CKD. Jul,en hy kid w cr kid I-IV (ICD-10 - I12.9)Blood pressure is controlled. She appears to be euvolemic. Continue current dose of lisinopril. Jul,Vitamin D deficiency (ICD-10 - E55.9)MBD parameters including calcium, phosphorus, vitamin D and PTH are within the goal. Jul,econdary hyperparathyroidism (ICD-10 - N25.81)MBD parameters are within the goal. Jul,Urinary incontinence (ICD-10 - R32)She has urinary incontinence. Continue to follow with urology Jul,Kidney cysts (ICD-10 - Q61.00)Ultrasound showed indeterminate left kidney masses but CT scan showed bilateral renal cys [facility] Other 03-24-2022 Evaluation note* Encounter Date Diagnosis Assessment Notes Treatment Notes Treatment Clinical Notes Jun, Vitamin D deficiency (ICD-10 - E 55.9) [facility] Other 03-02-2022 Evaluation note* Encounter Date Diagnosis Assessment Notes Treatment Notes Treatment Clinical Notes Jun, Vitamin D deficiency (ICD-10 - E 55.9) [facility] Other 11-23-2021 Evaluation note* Encounter Date Diagnosis Assessment Notes Treatment Notes Treatment Clinical Notes Feb, Vitamin D deficiency (ICD-10 - E 55.9) [facility] Other 2021 Evaluation note* Encounter Date Diagnosis Assessment Notes Treatment Notes Treatment Clinical Notes Jan, Chronic kidney disease, stage 3 unspecified (ICD-10 - N18.30) She has CKD due to HTN . Her Serum Creatinine fluctuates 1.1-1.4 mg/dl. She has no evidence of Hematuria and Proteinuria. I discussed with her the importance of good HTN control to slow down the progression of CKD. Jan,Kidney mass (ICD-10 - N28.89) Ultrasound showed indeterminate left kidney masses. I have ordered a CAT scan with and without contrast is recommended to rule out malignancy. Jan,en hy kid w cr kid I-IV (ICD-10 - I12.9) Blood pressure is controlled. She appears to be euvolemic. Continue current dose of lisinopril. Jan,Vitamin D deficiency (ICD-10 - E55.9) Calcium within normal limit. Continue vitamin D. Jan,econdary hyperparathyroidism (ICD-10 - N25.81) We will check PTH. Jan,Urinary incontinence (ICD-10 - R32) She has urinary incontinence. Continue to follow with urology [facility] [employer] Other Evaluation noteNo InformationNort [employer]alty[employer] Other Evaluation noteNo assessment information available [facility] Work Phone: Evaluation note* Diagnosis Late onset Alzheimer's disease with behavioral disturbance (CMS/HCC)- Primary Mood disturbance Paroxysmal atrial fibrillation (CMS/HCC) Atrial fibrillation Gait instability Abnormality of gait documented in this encounter [facility]* Diagnosis Late onset Alzheimer's disease with behavioral disturbance (CMS/HCC)- Primary Mood disturbance Paroxysmal atrial fibrillation (CMS/HCC) Atrial fibrillation Gait instability Abnormality of gait documented in this encounter [facility] HealthcareHistory general Narrative - Reported* Type Description Date Medical History high blood pressure Medical HistoryDVT left footMedical HistoryosteoporosisMedical HistoryCervical cancer- remissionMedical Historyalzheimers diseaseMedical HistoryVitamin D deficiencyMedical HistoryIncontinence of urine in femaleMedical HistoryStage 3b chronic kidney diseaseSurgical Historycervical [id number] Historyneck [id number] History4 childbirths-vaginalSurgical Historyhysterectomy Surgical HistoryRIGHT SIDE OF THYROID REMOVEDHospitalization HistorySEE ABOVE [employer] Other History general Narrative - Reported* Type Description Date Medical History high blood pressure Medical HistoryDVT left footMedical HistoryosteoporosisMedical HistoryCervical cancer- remissionMedical Historyalzheimers diseaseMedical HistoryVitamin D deficiencyMedical HistoryIncontinence of urine in femaleMedical HistoryStage 3b chronic kidney diseaseMedical HistoryPulmonary congestion per XRAY [facility] 10/2021Medical HistoryCOVID urgical Historycervical [id number] Historyneck [id number] History4 childbirths-vaginalSurgical History hysterectomySurgical HistoryRIGHT SIDE OF THYROID REMOVEDHospitalization History SEE ABOVEHospitalization HistoryFR 10/15-10/18 COVID [id number] [facility] [employer] Other History general Narrative - Reported* Type Description Date Medical History high blood pressure Medical HistoryDVT left footMedical HistoryosteoporosisMedical HistoryCervical cancer- remissionMedical Historyalzheimers diseaseMedical HistoryVitamin D deficiencyMedical HistoryIncontinence of urine in femaleMedical HistoryStage 3b chronic kidney diseaseMedical HistoryPulmonary congestion per XRAY [facility] 10/2021Medical HistoryCOVID 10/2021Medical HistorySkin growthMedical HistorySkin growthSurgical Historycervical [id number] Historyneck [id number] Surgical History4 childbirths-vaginalSurgical HistoryHysterectomySurgical HistoryRight side of thyroid removedHospitalization HistorySEE ABOVE [facility] COVID [id number] [employer] Other History general Narrative - Reported* Type Description Date Medical History high blood pressure Medical HistoryDVT left footMedical HistoryOsteoporosisMedical HistoryCervical cancer- remissionMedical Historyalzheimers diseaseMedical HistoryVitamin D deficiencyMedical HistoryIncontinence of urine in femaleMedical HistoryStage 3b chronic kidney diseaseMedical HistoryPulmonary congestion per XRAY [facility] 10/2021Medical HistoryCOVID 10/2021Medical HistorySkin growthSurgical History Cervical [id number] HistoryNeck [id number] History4 childbirths-vaginalSurgical HistoryHysterectomySurgical HistoryRight side of thyroid removedHospitalization HistorySee aboveHospitalization History[facility] COVID [id number] [employer] Other Reason for referral (narrative)No reason for referral information availableBellevue Hospital Work Phone: Reason for visit NarrativeDermatology Referral Update [employer] Other Summary Purpose Family History Relationship Condition Age at Onset Recorded Date/T margarito Not Specified Malignant neoplasm of tongue Unknown brotherLeukemiaUnknownbrotherDeceasedUnknownMalignant neoplasmUnknowndaughter SchizophreniaUnknownFamily history of mental disorderUnknownfatherDeceased UnknownHypertensionUnknownfamily memberDeceasedUnknownNot SpecifiedDeceased Unknownnatural sonDeceasedUnknown Relationship Condition Age at Onset Recorded Date/T margarito mother Malignant neoplasm of tongue Unknown DeceasedUnknownbrotherLeukemiaUnknowndaughterSchizophreniaUnknownFamily history of mental disorderUnknownfatherDeceasedUnknownHypertensionUnknownsonDeceased UnknownSuicideUnknown Advance Directives Advance Directive Response Recorded Date/ Time Advance Directives No October 15 12:56pm Advance Directive Response Recorded Date/ Time Advance Directives No October 15 11:56am Chief Complaint and Reason for Visit Chief Complaint Admit Date Amb Documentation November 15, 2024 3:39 pm Amb Documentation December 11, 2024 12 :00pm [facility] follow up, pneumonia January 23, 2025 12:55pm Chief Complaint Admit Date CC Adult Risk Stratification April 9:26am bloody nose June 19, 2024 2:50 pm Chief Complaint chest congestion Additional Source Comments INFORMATION SOURCE (unrecogn ized section and content) DATE CREATED AUTHOR 2017 [facility] DATE CREATED AUTHOR AUTHOR'S ORGANIZ ATION 10/20/2017 [facility] DATE CREATED AUTHOR AUTHOR'S ORGANIZ ATION 07/17/2018 [facility] DATE CREATED AUTHOR AUTHOR'S ORGANIZ ATION 05/22/2022 [facility] DATE CREATED AUTHOR AUTHOR'S ORGANIZ ATION 06/22/2022 [facility] DATE CREATED AUTHOR AUTHOR'S ORGANIZ ATION 09/12/2024 [facility] EPIC REASON FOR VISIT (unrecogniz ed section and content) ReasonCommentsAlzheimer's DiseaseGait ProblemAtrial FibrillationReasonComments Memory Loss Care Teams (unrecognized sec tion and content) Team Status: Active Member Role Status Dates Laura Herrera CMA Dry Mill Operator Active Mariama Klein Care ProviderActive Team Status: Active Member Role Status Dates Provider Conversion Attending Provider Active St art: May 04, 2023 Team Status: Active Member Role Status Dates Leoncio Samano APRN Primary Care Pr ovidcl, Attending Provider Active Start: May 27, 2023 Team Status: Inactive Member Role Status Dates Leoncio Samano APRN Primary Care Pr ovidcl, Attending Provider Active Start: July 06, 2023 End: July 06, 2023 Team Status: Inactive Member Role Status Dates Leoncio Samano APRN Primary Care Pr ovider, Attending Provider Active Start: October 26, 2023 End: October 26, 2023Team MemberRelationshipSpecialtyStart DateEnd Date Lonnie Trivedi MD [address] [place] [address] [address] [place] [address] PCP - GeneralFamily Ipjlkllx13/8/24 [place] [address] [place] [address] [place] [address] Referring PhysicianFamily Medicine10/03/23 Sylvain Linares DO [address] [address] Referring KuueiethyTbyejirfk02/8/24Team MemberRelationshipSpecialtyStart DateEnd Date Lonnie Trivedi MD [address] [facility] [address] [place] [address] PCP - GeneralFamily Jxlxyyft50/8/24 Leoncio Samano MD [address] [facility] [place] [address] [place] [address] Referring PhysicianFamily Medicine10/03/23 Sylvain Linares DO [address] [place] [phone] Referring WtcapnavpPsfwmeyye58/8/24 Team Status: Active Member Role Status Dates Hemalatha Cottrell Dry Mill Operator Active Mariama Klein Care ProviderActive Team Status: Active Member Role Status Dates Leoncio Samano APRN Primary Care Pr ovider, Attending Provider Active Start: April 26, 2024 Team Status: Inactive Member Role Status Dates Leoncio Samano APRN Primary Care Pr ovider, Attending Provider Active Start: June 19, 2024 End: June 19, 2024Team MemberRelationshipSpecialtyStart DateEnd Date Lonnie Trivedi MD [address] [place] [phone] PCP - GeneralFamily Ndcdrcgv06/8/24 Leoncio Samano NP Referring PhysicianFamily Medicine10/03/23 Sylvain Linares DO [address] [place] [phone] Referring AimcseljjPamrmvdkk59/8/24Team MemberRelationshipSpecialtyStart DateEnd Date Lonnie Trivedi MD [address] [place] [address] PCP - GeneralFamily Djlsaull51/8/24 Leoncio Samano NP Referring PhysicianFamily Medicine10/03/23 Sylvain Linares DO [address] [place], [place] [phone] Referring KbslrgbamNvdvjufgj17/8/24 Team Status: Active Member Role Status Dates Leoncio Samano APRN Primary Care Provider Active Team Status: Active Member Role Status Dates Leoncio Samano APRN Primary Care Provider Active Start: November 15, 2024 Hemalatha Teran ProviderActiveStart: November 15, 2024 Team Status: Active Member Role Status Dates Leoncio Samano APRN Primary Care Provider Active Start: December 11, 2024 Susan Whittington ProviderActiveStart: December 11, 2024 Team Status: Active Member Role Status Dates Leoncio Samano APRN Primary Care Provider Active Start: January 15, 2025 Giovana Espinoza ProviderActiveStart: January 15, 2025 Team Status: Active Member Role Status Dates Leoncio Samano APRN Primary Care Provider Active Start: January 16, 2025 Giovana Espinoza ProviderActiveStart: January 16, 2025 Team Status: Inactive Member Role Status Dates Leoncio Samano APRN Primary Care Provider Active Start: January 23, 2025 End: January 23, 2025Stewart Klein ProviderActiveStart: January 23, 2025 End: January 23, 2025 Goals (unrecognized section and content) Goals may be documented in a n alternate section FOR RECORDS PERTAINING TO PATIENTS WHO ARE OR HAVE BEEN ENROLLED IN A CHEMICAL DEPENDENCY/SUBSTANCEABUSE PROGRAM, SOME INFORMATION MAY BE OMITTED. This clinical summary was aggregated from multiple sources. Caution should be exercised in using it in the provision of clinical care. This summary normalizes information from multiple sources, and as a consequence, information in this document may materially change the coding, format and clinical context of patient data. In addition, data may be omitted in some cases. CLINICAL DECISIONS SHOULD BE BASED ON THE PRIMARY CLINICAL RECORDS. [facility] [employer] [facility]. provides no warranty or guarantee of the accuracy or completeness of information in this document.
--- NOTE | 2025-03-07 08:30 | ECG_ITS ---
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 Measurements Intervals Hopkins Rate: 152 P: -[id number] MI: -[id number] QRS: -62 QRSD: 100 T: 27 QT: 350 QTc: 436 Interpretive Statements ATRIAL FLUTTER WITH 2:1 AV BLOCK 2440 Incomplete right bundle branch block [address] depression, probably digitalis effect 7200 Abnormal left axis deviation 8003 Consistent with pulmonary disease 8102 Low QRS voltage in chest leads 9150 abnormal ECG Compared to ECG 01/15/2025 20:57:12 Sinus rhythm no longer present ST (T wave) deviation still present Electronically Signed On 03-07-2025 19:21:22 EST by DEVANG DOUGLAS M.D.
[2025-03-07 08:36] LABS: Hematocrit 49.6 % (36.0-48.0); Hemoglobin 15.9 g/dL (12.0-16.0); Immature Granulocytes Abs Auto 0.08 10^3/uL (0.00-0.03); Immature Granulocytes Pct Auto 0.4 % (0.0-0.5); Lymphocytes Absolute Auto 3.4 10^3/uL (1.2-3.8); Mean Corpuscular HGB Conc 32.1 g/dL (29.9-35.2); Mean Corpuscular Hemoglobin 29.8 pg (26.7-34.0); Mean Corpuscular Volume 93.1 fL (81.0-99.0); Platelet Count 377 10^3/uL (150-450); Red Blood Count 5.33 10^6/uL (4.20-5.40); White Blood Count 20.6 10^3/uL (4.0-11.0)
[2025-03-07] MEDS: 0.9 % SODIUM CHLORIDE 1,000 ML 1000 ML IV ×3 (08:39→10:19)
[2025-03-07] MEDS: METHYLPREDNISOLONE SOD SUCC PF 125 MG/2 ML VIAL IVP (08:45)
[2025-03-07 08:49] LABS: Anion Gap 17.2; Blood Urea Nitrogen 19.0 mg/dL (7.0-18.0); Calcium 9.4 mg/dL (8.5-10.1); Carbon Dioxide 25.4 mmol/L (21.0-32.0); Chloride 108 mmol/L (98-107); Estimated GFR (African America 41 (>=60 mL/min/1.73m^2); Estimated GFR (Non-African Ame 34 (>=60 mL/min/1.73m^2); Glucose 217 mg/dL (74-106); Potassium 3.6 mmol/L (3.5-5.1); Sodium 147 mmol/L (136-145)
[2025-03-07 08:50] LABS: Lactate/Lactic Acid 5.5 mmol/L (0.4-2.0)
--- NOTE | 2025-03-07 08:52 | PC.NURSE ---
critical lactate and Troponin given to Dr. Lowe
--- NOTE | 2025-03-07 08:53 | PC.NURSE ---
0840- Family is waiting room, updated that she is in critical condition,intubated. they report nurse was at the house yesterday and ordered oxygen for her at home because her home Sp02 ranged from mid 70's- 92%. Family said she was very mucousy and bringing a lot up yesterday when the was tryihng to feed her.
--- NOTE | 2025-03-07 08:54 | ED.GENADUL1 ---
HPI HPI - General Adult General Chief complaint: Shortness of Breath/Dyspnea Stated complaint: sob Time Seen by Provider: 03/07/25 08:27 Mode of arrival: ambulance History of Present Illness HPI narrative: 79-year-old female presented in respiratory distress by paramedics. She is unable to give any history. Initially all of the history is obtained from the paramedics. They reported that her home care nurse was at the house yesterday and today she was short of breath. The patient has a history of dementia and has not spoken in 4 years. O2 sats were low for the paramedics and they gave her DuoNebs and put her on oxygen and transported her here. No further history obtainable. Related Data Home Medications ?Medication ?Instructions ?Recorded ?Confirmed citalopram 10 mg tablet 10 mg PO DAILY 01/15/25 01/15/25 donepezil 5 mg tablet 5 mg PO DAILY 01/15/25 01/15/25 lisinopril 10 mg tablet 10 mg PO DAILY 01/15/25 01/15/25 memantine 5 mg tablet 10 mg PO BID 01/15/25 01/15/25 rivaroxaban 20 mg tablet (Xarelto) 20 mg PO Q24H 01/15/25 01/15/25 Allergies Allergy/AdvReac Type Severity Reaction Status Date / Time No Known Drug Allergies Allergy Verified 03/07/25 10:21 Review of Systems ROS Narrative Not obtainable, acuity of condition and patient is nonverbal PFSH PFS Social History Smoking status: Former smoker Exam Narrative Exam Narrative: Nurses note and vital signs reviewed General:The patient appears in respiratory distress. She is tachypneic with shallow breaths. Her eyes are open. Skin:Warm, dry, no pallor noted.There is no rash noted. Head:Normocephalic, atraumatic Eye: Normal conjunctiva, no drainage Ears, Nose, Mouth, and Throat: oral mucosa is somewhat dry. Nares patent. Cardiovascular:Regular Rate and Rhythm, tachycardic Respiratory:Patient is in respiratory distress upon arrival. Breath sounds are shallow. She has peripheral cyanosis GI: Soft and nondistended. No apparent tenderness Musculoskeletal: The patient has no evidence of calf tenderness, no pitting edema, symmetrical pulses noted bilaterally Neurological: Nonverbal. Eyes are open. Does not follow any commands Psychiatric: Cannot be assessed Constitutional Vital Signs, click to edit/add: Last Vital Signs Pulse 124 H 03/07/25 09:00 Resp 40 H 03/07/25 09:00 BP 136/102 H 03/07/25 08:03 Pulse Ox 78 L 03/07/25 09:00 O2 Del Method BIPAP 03/07/25 08:03 FiO2 100 03/07/25 09:00 Course Vital Signs Vital signs: Vital Signs Pulse Rate 160 H 03/07/25 08:03 Respiratory Rate 28 H 03/07/25 08:03 Blood Pressure 136/102 H 03/07/25 08:03 Pulse Oximetry 47 L 03/07/25 08:03 Oxygen Delivery Method BIPAP 03/07/25 08:03 Pulse Rate 124 H 03/07/25 09:00 Respiratory Rate 40 H 03/07/25 09:00 Blood Pressure 136/102 H 03/07/25 08:03 Pulse Oximetry 78 L 03/07/25 09:00 Oxygen Delivery Method BIPAP 03/07/25 08:03 Fraction of Inspired Oxygen 100 03/07/25 09:00 Medical Decision Making MDM Narrative Medical decision making narrative: Upon arrival it was clear that she was in respiratory distress. She was placed on BiPAP but this did not result in improvement in her respiratory status. Decision was then made by me to intubate. She was given 20 mg of IV etomidate which resulted in good sedation and orotracheally intubated on the first attempt with a 7-0 tube with visualization of the tube passing between the cords and appropriate change on the capnometer and condensation in the tube. O2 sats came up quickly to the lower 80% range but then started dropping. It was noticed that she was biting down on the tube and this was rectified manually. Breath sounds were not present on her right side. She continued to have a good waveform on the monitor but her O2 saturations continued to decline. She continued to have appropriate change on the capnometer and condensation in the tube. The tube was not displaced. Because of the falling sats the decision was made by me to remove that tube and to replace it. She was given an additional 20 mg of IV etomidate which resulted in good sedation and again was intubated with a 7-0 ET tube with visualization of the tube passing between the cords and condensation in the tube and appropriate change on the capnometer. O2 sats then came up again into the 70% range, sometimes at 80%. She still has poor breath sounds on her right side. Chest x-rays showed significant opacification on the right side. She had been here several weeks ago and was diagnosed with pneumonia and was discharged home at that time. Blood cultures were obtained and she was given IV Zosyn and vancomycin. Lactic acid is also elevated. She was given IV fluids and her blood pressure has come up. Intention was to perform CAT scan but CT scanner is not available and this will be deferred to the receiving institution. Troponin is also elevated. Findings are discussed thoroughly with the family. They were informed of the serious nature of her condition and that her condition could result in her . I have spoken to the accepting physician at [facility] and he accepts the patient. She stable and the family is agreeable for transfer. Differential Diagnosis Differential Diagnosis: Pneumonia, pneumothorax, aspiration Medical Records Medical records narrative: She has not been here previously so no medical records are available. Lab Data Lab results reviewed: Yes I reviewed the patient's lab results Labs: Lab Results 03/07/25 03/07/25 03/07/25 Range/Units 08:08 08:41 08:46 WBC 20.6 H (4.0-11.0) 10^3/uL RBC 5.33 (4.20-5.40) 10^6/uL Hgb 15.9 (12.0-16.0) g/dL Hct 49.6 H (36.0-48.0) % MCV 93.1 (81.0-99.0) fL MCH 29.8 (26.7-34.0) pg MCHC 32.1 (29.9-35.2) g/dL RDW 13.1 (11.0-15.0) % Plt Count 377 (150-450) 10^3/uL MPV 10.5 (9.5-13.5) fL Neut % (Auto) 76.5 H (43.0-75.0) % Lymph % (Auto) 16.2 L (20.5-60.0) % [place] % (Auto) 5.9 (1.7-12.0) % Eos % (Auto) 0.6 L (0.9-7.0) % Baso % (Auto) 0.4 (0.2-2.0) % Neut # (Auto) 15.8 H (1.4-6.5) 10^3/uL Lymph # (Auto) 3.4 (1.2-3.8) 10^3/uL [place] # (Auto) 1.2 H (0.3-0.8) 10^3/uL Eos # (Auto) 0.1 (0.0-0.7) 10^3/uL Baso # (Auto) 0.1 (0.0-0.1) 10^3/uL Abs Immat Gran (auto) 0.08 H (0.00-0.03) 10^3/uL Imm/Tot Granulo (auto) 0.4 (0.0-0.5) % Puncture Site Rr ABG pH 7.288 L* (7.350-7.450) ABG pCO2 48.0 H (35.0-45.0) mmHg ABG pO2 43.9 L* (80.0-100.0) mmHg ABG HCO3 22.9 (22.0-26.0) mmol/L ABG O2 Saturation 72.8 % ABG Base Excess -3.7 L (-2.0-2.0) mmol/L Eder Test Positive (POSITIVE) Minute Volume 8.02 Vent Mode Ac/vc FiO2 100 % Tidal Volume 450 Sodium 147 H (136-145) mmol/L Potassium 3.6 (3.5-5.1) mmol/L Chloride 108 H (98-107) mmol/L Carbon Dioxide 25.4 (21.0-32.0) mmol/L Anion Gap 17.2 BUN 19.0 H (7.0-18.0) mg/dL Creatinine 1.49 H (0.55-1.02) mg/dL Est GFR ( Amer) 41 L (>=60 mL/min/1.73m^2) Est GFR (Non-Af Amer) 34 L (>=60 mL/min/1.73m^2) BUN/Creatinine Ratio 12.8 Glucose 217 H (74-106) mg/dL Lactate 5.5 H* (0.4-2.0) mmol/L Calcium 9.4 (8.5-10.1) mg/dL Troponin I High Sens 119.1 H* (4.0-51.3) pg/mL Urine Color (YELLOW) Urine Clarity (CLEAR) Urine pH (5.0-9.0) Ur Specific [place] (1.005-1.025) Urine Protein (NEG/TRACE) mg/dL Urine Glucose (UA) (NEGATIVE) mg/dL Urine Ketones (NEGATIVE) mg/dL Urine Occult Blood (NEGATIVE) Urine Nitrite (NEGATIVE) Urine Bilirubin (NEGATIVE) Urine Urobilinogen (0.2-1.0) EU/dL Ur Leukocyte Esterase (NEGATIVE) Urine RBC (0-2) #/HPF Urine WBC (NONE SEEN) #/HPF Ur Squamous Epith Cells (NONE/RARE) #/LPF Urine Crystals (None Seen) #/HPF Urine Bacteria (NONE SEEN) #/HPF Urine Casts (NONE SEEN) #/LPF Hyaline Casts Urine Mucus (NONE SEEN) Ur Culture Indicated? Influenza Type A Ag Negative Influenza Type B Ag Negative SARS-CoV-2 Ag (CV2AG) Negative (NEGATIVE) 03/07/25 03/07/25 Range/Units 09:05 09:37 WBC (4.0-11.0) 10^3/uL RBC (4.20-5.40) 10^6/uL Hgb (12.0-16.0) g/dL Hct (36.0-48.0) % MCV (81.0-99.0) fL MCH (26.7-34.0) pg MCHC (29.9-35.2) g/dL RDW (11.0-15.0) % Plt Count (150-450) 10^3/uL MPV (9.5-13.5) fL Neut % (Auto) (43.0-75.0) % Lymph % (Auto) (20.5-60.0) % [place] % (Auto) (1.7-12.0) % Eos % (Auto) (0.9-7.0) % Baso % (Auto) (0.2-2.0) % Neut # (Auto) (1.4-6.5) 10^3/uL Lymph # (Auto) (1.2-3.8) 10^3/uL [place] # (Auto) (0.3-0.8) 10^3/uL Eos # (Auto) (0.0-0.7) 10^3/uL Baso # (Auto) (0.0-0.1) 10^3/uL Abs Immat Gran (auto) (0.00-0.03) 10^3/uL Imm/Tot Granulo (auto) (0.0-0.5) % Puncture Site ABG pH (7.350-7.450) ABG pCO2 (35.0-45.0) mmHg ABG pO2 (80.0-100.0) mmHg ABG HCO3 (22.0-26.0) mmol/L ABG O2 Saturation % ABG Base Excess (-2.0-2.0) mmol/L Eder Test (POSITIVE) Minute Volume Vent Mode FiO2 % Tidal Volume Sodium (136-145) mmol/L Potassium (3.5-5.1) mmol/L Chloride (98-107) mmol/L Carbon Dioxide (21.0-32.0) mmol/L Anion Gap BUN (7.0-18.0) mg/dL Creatinine (0.55-1.02) mg/dL Est GFR ( Amer) (>=60 mL/min/1.73m^2) Est GFR (Non-Af Amer) (>=60 mL/min/1.73m^2) BUN/Creatinine Ratio Glucose (74-106) mg/dL Lactate (0.4-2.0) mmol/L Calcium (8.5-10.1) mg/dL Troponin I High Sens 249.0 H* (4.0-51.3) pg/mL Urine Color Dk. yellow (YELLOW) Urine Clarity Clear (CLEAR) Urine pH 5.5 (5.0-9.0) Ur Specific [place] >=1.030 A (1.005-1.025) Urine Protein 100 A (NEG/TRACE) mg/dL Urine Glucose (UA) Negative (NEGATIVE) mg/dL Urine Ketones 15 A (NEGATIVE) mg/dL Urine Occult Blood Large A (NEGATIVE) Urine Nitrite Negative (NEGATIVE) Urine Bilirubin Moderate A (NEGATIVE) Urine Urobilinogen 2.0 A (0.2-1.0) EU/dL Ur Leukocyte Esterase Negative (NEGATIVE) Urine RBC 50-75 A (0-2) #/HPF Urine WBC None seen (NONE SEEN) #/HPF Ur Squamous Epith Cells Moderate A (NONE/RARE) #/LPF Urine Crystals None seen (None Seen) #/HPF Urine Bacteria Small A (NONE SEEN) #/HPF Urine Casts Seen A (NONE SEEN) #/LPF Hyaline Casts Few Urine Mucus Trace A (NONE SEEN) Ur Culture Indicated? [place] [place]enza Type A Ag Influenza Type B Ag SARS-CoV-2 Ag (CV2AG) (NEGATIVE) Imaging Data Chest x-ray: Radiologist's impression: ITS Impressions Chest X-Ray 03/07/25 00:00 IMPRESSION: ENDOTRACHEAL TUBE PLACEMENT, DESCRIBED. RIGHT-SIDED PLEURAL-PARENCHYMAL CHANGE. Impression dictated by: Myah Barney M.D. 03/07/2025 8:54 AM Dictation Location: [place] [address] Electronically authenticated by: [id number] Y Date: 03/07/2025 08:54 ECG Data Attestation: I personally reviewed and interpreted this ECG as follows: (EKG on my interpretation shows tachycardia which is regular and she has a rate of 150.) Critical Care Time Critical Care Time Critical Care Time: Yes Total Critical Care Time: 95 Attestation: Due to the high probability of sudden and clinically significant deterioration in the patient's condition he/she required the highest level of my preparedness to intervene urgently I provided critical care time including documentation time, medication orders and management, reevaluation, vital sign assessment, ordering and reviewing of lab tests, ordering and reviewing of x-ray studies, and admission orders. Aggregate critical care time is 95 minutes including only time during which I was engaged in work directly related to his/her care and did not include time spent treating other patients simultaneously. Discharge Plan Discharge Chief Complaint: Shortness of Breath/Dyspnea Clinical Impression: Respiratory failure, Pneumonia, Hypoxemia Patient Disposition: [facility] Time of Disposition Decision: 09:42 Discharge Location: [facility] Condition: Critical Mode of Transportation: EMS
[2025-03-07 09:09] LABS: ABG PCO2 48.0 mmHg (35.0-45.0); Allen Test POSITIVE (POSITIVE); HCO3 ABG 22.9 mmol/L (22.0-26.0); O2 Mode VENT; Oxygen Saturation ABG 72.8 %; Puncture Site RR
[2025-03-07 09:09] LABS: Glucose Urine UA NEGATIVE (NEGATIVE)
[2025-03-07 09:10] LABS: Rate 16
[2025-03-07 09:11] LABS: PO2 ABG 43.9 mmHg (80.0-100.0)
[2025-03-07 09:12] LABS: SARS-CoV-2 Ag NEGATIVE (NEGATIVE)
[2025-03-07] MEDS: VANCOMYCIN HCL 1,000 MG in 0.9 % SODIUM CHLORIDE 250 ML 250 MG IV (09:12)
[2025-03-07] MEDS: PIPERACILLIN SODIUM/TAZOBACTAM 3.375 GM in 0.9 % SODIUM CHLORIDE 50 ML IV (09:12)
[2025-03-07] MEDS: DIAZEPAM 10 MG/2 ML SYRINGE 5 MG IV (09:12)
[2025-03-07 09:16] LABS: Cast Seen? SEEN #/LPF (NONE SEEN); Crystals Seen? None Seen #/HPF (None Seen); Urine Culture Indicated YES-FRMC
[2025-03-07] MEDS: PROPOFOL 1,000 MG/100 ML VIAL 2.449 MG IV (09:34)
--- NOTE | 2025-03-07 09:52 | PC.NURSE ---
0803 Patient arrives via EMS with severe dyspnea. See EMS report for treatment prior to arrival. Patient is cyanotic, tachypneic 28+, labored. #20 angio left AC. Unresponsive. EKG sinus tachycardia. 0812 Etomidate 20,g IVP. Intubated per Dr. Lowe with #7 ET, 25 at the lip. Pulse ox 74-80%. Patient biting the ET tube. HR 151. 0816 HR 137. Pulse Ox 55%. 0820 Etomidate 20mg IVP. Tube repositioned to #22, Being bagged. Pulse ox remains low. 0824 extubated per doctor. Reintubated per Dr. Lowe. #7 ET. Decreased lung sounds on the right. HR 142. pulse ox 64%, manually ventilated. 0825 CXR done. HR 132 Pulse ox 78%. 0829 ET adjusted to #21 at the lip. BP 62/45 (62/50 manual) HR 125. Pulse 87%, manual ventilation. 0834 BP 81/64. HR 125. Pulse ox 65%. 0839 BP 112/76. HR 126. Pulse ox 73%.RR 28 manual ventilation. Normal Saline bolus to left AC site. #20 angio right AC initiated. 0841 ABG's drawn. 0845 Normal saline bolus to right AC site. Nasal swabs obtained. Blood cultures x2. Solu-Medrol given. 0849 HR 127. 75% pulse ox. RR 14 per ventilator. 0900 BP 117/72. HR 123. Pulse ox 78%, RR 16 on ventilator. Rectal temp 98.7. #16F Fowler placed, urine specimen obtained. 0912 5mg Valium. given. Vancomycin initiated right AC. Zosyn initiated left AC. [address] Lowe. 0938 BP 102/66. HR 116. IV initiated to left upper arm, #20 angio. Propofol initiated left upper arm. 0955 Family at bedside. Patioent resting quietly. Resp 20 per ventilator. Skin now pinker, warm, dry.
[2025-03-07] MEDS: 0.9 % SODIUM CHLORIDE 1,000 ML 125 ML IV (11:20)
== END 2025-03-07 12:16 | disposition short-term general hospital (02) ==
PROVIDERS: Emergency Provider Emergency Medicine; PCP Nurse Practitioner Family
DX: J96.91 Respiratory failure, unspecified with hypoxia (principal); J18.9 Pneumonia, unspecified organism; F03.90 Unspecified dementia, unspecified severity, without behavioral disturbance, psychotic disturbance, mood disturbance, and anxiety; Z87.891 Personal history of nicotine dependence; Z87.01 Personal history of pneumonia (recurrent); R82.998 Other abnormal findings in urine
CPT/HCPCS: 31500; 36415; 36600; 71045; 80048; 81001; 82805; 83605; 84484; 85025; 87040; 87070; 87086; 87205; 87804; 87811; 89220; 93005; 94002; 94660; 96365; 96366; 96368; 96375; 99291; 99292; J0330; J2543; J2704; J2919; J3360; J3373